=== PATIENT | female | born 1945 | race Caucasian/White ===

== ENCOUNTER 2016-10-19 11:17 | Inpatient (IN) | payer OTHER, BC ==
[2016-10-03 09:02] VITALS: BMI 32.0
--- NOTE | 2016-10-03 09:42 | PAT Medication Instructions ---
Service Date Oct 03, 2016. Current Home Medication List Acetaminophen (Tylenol), 1,000 MG PO BID PRN for illness Amoxicillin (Amoxil), 4 CAP PO UD PRN for RN Atenolol (Tenormin), 100 MG PO HS Atorvastatin (Atorvastatin Calcium), 10 MG PO QAM Calcium/Vitamin D (Os-Harish 500 Plus D), 1 TAB PO QAM Cholecalciferol (Vitamin D), 1,000 INTER.UNIT PO QAM Fish Oil (Waves-3), 1 CAP PO QAM Lisinopril (Zestril), 10 MG PO QAM Medication Instructions For Your Scheduled Surgery Amoxicillin (Amoxil), 4 CAP PO UD PRN for RN (just takes prior to dental procedures) - Hold the following medications 2 weeks prior to surgery: Fish Oil (Waves-3), 1 CAP PO QAM - Hold the following medications the morning of surgery: Lisinopril (Zestril), 10 MG PO QAM Calcium/Vitamin D (Os-Harish 500 Plus D), 1 TAB PO QAM Cholecalciferol (Vitamin D), 1,000 INTER.UNIT PO QAM - Take the following medications the morning of surgery with a sip of water: Atorvastatin (Atorvastatin Calcium), 10 MG PO QAM Acetaminophen (Tylenol), 1,000 MG PO BID PRN for illness (if needed) - Take the following medications as scheduled the night before surgery: Atenolol (Tenormin), 100 MG PO HS Acetaminophen (Tylenol), 1,000 MG PO BID PRN for illness If you have any questions please call us at [phone] or [phone] ( [facility]) or [phone]
--- NOTE | 2016-10-03 10:21 | DIAGNOSTIC IMAGING REPORT ---
TWO VIEW CHEST CLINICAL HISTORY: Preoperative examination. FINDINGS: PA and lateral chest radiographs are compared to study dated 10/25/2014. The PA view is degraded by patient rotation. The heart is enlarged and there is atherosclerotic calcification of the thoracic aorta. The pulmonary vasculature is noncongested. Chronic interstitial thickening is similar to previous. Scarring is suspected at the right lung base. No airspace consolidation or pleural effusion is identified. There is no pneumothorax. The skeletal structures are osteopenic. Mild degenerative changes noted in the thoracic spine. Surgical clips project over the right breast. IMPRESSION: Cardiac enlargement with no active disease in the chest. Electronically signed by: Josiah Candelaria M.D. 10/03/2016 10:18 AM Dictated Date/Time: 10/03/2016 10:17 AM
[2016-10-03 10:29] LABS: BASO % 0.4 %; BASO ABS # 0.02 K/uL (0-0.2); COMPLETE YES; EOS % 1.3 %; HEMATOCRIT 40.4 % (37-47); IG% 0.7 %; LYMPH % 19.5 %; MEAN CORPUSCULAR HEMOGLOBIN 26.9 pg (25-34); MEAN CORPUSCULAR HGB CONC 33.7 g/dl (32-36); MEAN PLATELET VOLUME 11.3 fL (7.4-10.4); MONO % 17.1 %; PLATELET COUNT 226 K/uL (130-400); RED BLOOD COUNT 5.05 M/uL (4.2-5.4); WHITE BLOOD COUNT 4.61 K/uL (4.8-10.8)
[2016-10-03 10:38] LABS: PARTIAL THROMBOPLASTIN RATIO 1.1
[2016-10-03 11:01] LABS: BUN/CREATININE RATIO 25.6 (10-20); CALCIUM 9.5 mg/dl (8.5-10.1); CREATININE 0.71 mg/dl (0.60-1.20)
--- NOTE | 2016-10-13 10:44 | HISTORY & PHYSICAL EXAMINATION ---
DATE OF ADMISSION: 10/19/2016 CHIEF COMPLAINT: Bilateral knee pain, right side greater than left. HISTORY OF PRESENT ILLNESS: The patient is a 71-year-old female from [place] who presents for surgical treatment of her right knee. She has a long history of bilateral knee pain and discomfort, right side quite a bit worse than the left. She has been through extensive conservative treatment by her medical doctor, Dr. Perri Black. She has had various medicines as well as injections. The injections have become less successful over time. It has really started to limit her ability to walk and ambulate and perform her normal daily activities. Only really has pain with weightbearing. She would like to proceed with surgical treatment. Of note, the patient does have a history of cerebral aneurysm treated surgically 10 years ago. No further problems with this and no residual sequelae. PAST MEDICAL HISTORY: 1. Hypertension. 2. Elevated cholesterol. 3. History of cerebral aneurysm status post repair. 4. Breast cancer status post surgery in remission. 5. Obesity, BMI of 32.3. PAST SURGICAL HISTORY: 1. Cerebral aneurysm repair. 2. Breast cancer resection. ALLERGIES: None. CURRENT MEDICINES: 1. Lisinopril 10 mg b.i.d. 2. Atenolol 100 mg at bedtime. 3. Amlodipine 5 mg a day. 4. Vitamin D 1000 international units a day. 5. Odell 3 1000 mg per day. 6. Tylenol. 7. Calcium. 8. Amoxicillin before dental work. 9. Lipitor 10 mg a day. SOCIAL HISTORY: A 71-year-old female patient from [place]. She is . Her is retired and can help in her recovery, 1-2 drinks per day. FAMILY HISTORY: Significant for heart disease. REVIEW OF SYSTEMS: Negative for diabetes, neurologic problems, vascular problems or bleeding disorders. Denies any chest pain, no shortness of breath. No history of DVT or PE. She does have this aneurysm repaired. No further problems with this. She has no bleeding issues and no neurological sequelae. PHYSICAL EXAMINATION: GENERAL: A pleasant elderly 71-year-old female. HEAD, EYES, EARS, NOSE, AND THROAT EXAMINATION: Benign. NECK: Supple. No lymphadenopathy. LUNGS: Clear to auscultation. HEART: Regular rate and rhythm. ABDOMEN: Soft, nontender, nondistended. EXTREMITY EXAMINATION: Grossly neurovascularly intact except as follows: Examination of both legs reveals the patient walks with a slightly antalgic gait. Examination of the right knee reveals small knee effusion. She is tender over the medial joint line. Range of motion is 5-120. No instability. No pain with hip motion. X-RAYS: X-rays of both knees revealed advanced bilateral knee DJD, right side a bit worse than left. She has got complete loss of her medial joint space. Little bit worse on the right than the left. She has got osteophytes primarily medial compartment bilaterally. She has got some chondrocalcinosis laterally. ASSESSMENT: A 71-year-old white female with advanced bilateral knee pain and degenerative joint disease. She has failed conservative treatment. Her right knee is worse than the left and she would like to have her right knee replaced. PLAN: We are going to take her to the operating room and do a right total knee replacement. The risks and benefits of this procedure were explained to the patient including but not limited to DVT, PE, , infection, neurological injury, vascular injury, bleeding problem, pain, limited range of motion, stiffness, failure to relieve her symptoms, incomplete relief of symptoms, need for further surgery in the future, fracture, leg length inequality, nerve palsy, etc. The patient understands and desires to proceed. Informed consent was obtained. We did talk to her about holding her lisinopril the morning of surgery. She will make sure she takes her atenolol dose the night before as standard for her. She is going to use the [employer] home health program. Her can assist in her care. I will see her back 2 weeks postop.
[~2016-10-19] VITALS: Ht 162.6 cm; Wt 85.3 kg
[2016-10-19] MEDS: TRANEXAMIC ACID INJ 1,000 MG in SODIUM CHLORIDE 0.9% 100ML 100 ML IV SCH ×3 (06:30)
[~2016-10-19 11:17] MED LIST: ACET-1256 PO; ACETAMINOPHEN 500 MG TAB PO SCH; AMOX500C3 PO; ATEN100T PO; BUPIVACAINE 0.5 % 5 MG/1 ML PF 10ML VIAL ONE; BUPIVACAINE LIPOSOME 266 MG, BUPIVACAINE/EPINEPHRINE INJ 50 ML, SODIUM CHLORIDE 0.9% PF... INFIL SCH; BUPIVACAINE/EPINEPHRINE 0.25% 1:200,000 30 ML VIAL ONE; CALC500C70 PO; CEFAZOLIN 2000 MG/60 ML D5W 60 ML IV SCH; CHOL100010 PO; CeleBREX 200 MG CAP PO SCH; DEXAMETHASONE 4 MG TAB PO SCH; DEXAMETHASONE SOD INJ 4 MG/ML VIAL ONE; FAMOTIDINE 20 MG TAB PO SCH; GABAPENTIN 300 MG CAP PO SCH; LACTATED RINGER'S 1000ML 1,000 ML IV SCH; LACTATED RINGER'S 1000ML 500 ML IV ONE; LACTATED RINGER'S 1000ML IV SCH; LISI-461 PO; LPT10 PO; METOCLOPRAMIDE HCL 10 MG TAB PO SCH; OMEG10007 PO; SCOPOLAMINE 1.5 MG TDSY TD SCH
[2016-10-19 11:44] VITALS: BP 154/85; PULSE 72; TEMP 36.8; O2SAT 96; BMI 32.0
[2016-10-19] MEDS ORDERED: SODIUM CHLORIDE 0.9% 1000ML 1,000 ML IV PRN (12:41)
[2016-10-19] MEDS ORDERED: NALOXONE HCL INJ 0.08 MG in SYRINGE 1.8 ML IV PRN (12:41)
[2016-10-19] MEDS ORDERED: NALOXONE HCL INJ 1 MG in SODIUM CHLORIDE 0.9% 1000ML 1,000 ML IV PRN (12:41)
[2016-10-19] MEDS ORDERED: LACTATED RINGER'S 1000ML 500 ML IV PRN (12:41)
[2016-10-19] MEDS ORDERED: MIDAZOLAM HCL 1 MG/ML 2ML VIAL ONE (12:43)
[2016-10-19] MEDS ORDERED: FENTANYL CITRATE INJ 50 MCG/1 ML 2 ML VIAL ONE (12:43)
[2016-10-19] MEDS ORDERED: PROMETHAZINE HCL INJ 25 MG in SODIUM CHLORIDE 0.9% 50ML 50 ML IV PRN (12:45)
[2016-10-19] MEDS ORDERED: FENTANYL CITRATE INJ 50 MCG/1 ML 2 ML VIAL IV PRN (12:45)
[2016-10-19] MEDS ORDERED: MEPERIDINE HCL 25 MG/ML CARP IV PRN (12:45)
[2016-10-19] MEDS ORDERED: MoRPHine SULFATE 2 MG/ML CARP IV PRN ×2 (12:45→17:15)
[2016-10-19] MEDS ORDERED: ONDANSETRON INJ 2 MG/ML 2 ML VIAL IV PRN ×2 (12:45)
[2016-10-19] MEDS ORDERED: KETOROLAC TROMETHAMINE 30 MG/ML VIAL IV. PRN (12:45)
[2016-10-19] MEDS ORDERED: ATROPINE SULFATE 0.1 MG/ML 5ML SYR IV PRN (12:45)
[2016-10-19] MEDS ORDERED: NO NARCOTICS OR SEDATIVES SCH (12:45)
[2016-10-19] MEDS ORDERED: MoRPHine SULFATE PF 1 MG/ML 10 ML AMP/VIAL EPI PRN (12:45)
[2016-10-19] MEDS ORDERED: DiphenhydrAMINE HCL 50 MG/ML VIAL IV PRN ×2 (12:45)
[2016-10-19] MEDS ORDERED: LORAZEPAM 1 MG TAB PO PRN (12:45)
[2016-10-19] MEDS ORDERED: EpHEDrine SULFATE INJ 50 MG/ML AMP IV PRN ×2 (12:45)
[2016-10-19] MEDS ORDERED: METOCLOPRAMIDE HCL INJ 20 MG in SODIUM CHLORIDE 0.9% 50ML 50 ML IV PRN (12:45)
[2016-10-19] MEDS ORDERED: NALBUPHINE HCL INJ 10 MG/ML AMP IV PRN (12:45)
[2016-10-19] MEDS ORDERED: LORAZEPAM INJ 0.5 MG in SYRINGE 0.75 ML IV PRN (12:45)
[2016-10-19] MEDS ORDERED: NALOXONE HCL 0.4 MG/1 ML VIAL/CARP IV PRN (12:45)
--- NOTE | 2016-10-19 12:53 | History & Physical Bridge Note ---
H&P Re-Evaluation Bridge Note: I have examined the patient, reviewed the History & Physical and in the interval since the performance of the History & Physical I have noted the following changes of clinical significance: No changes noted
[2016-10-19] MEDS ORDERED: PROPOFOL IV EMULSION 10 MG/ML 20 ML VIAL IV ONE (13:52)
[2016-10-19] MEDS ORDERED: LIDOCAINE HCL 2% 2 ML VIAL (20MG/ML) ONE (13:52)
[2016-10-19] MEDS ORDERED: PHENYLEPHRINE 100MCG/ML 5ML SYR ONE (13:57)
[2016-10-19] MEDS ORDERED: MIX: SENSORCAINE W/EPI+NSS+EXPAREL INJ ONE (14:23)
[2016-10-19] MEDS ORDERED: BACITRACIN 50000 UNIT VIAL IR ONE (14:34)
--- NOTE | 2016-10-19 14:47 | [facility] Post Operative Brief Note ---
Immediate Operative Summary Operative Date Oct 19, 2016. Pre-Operative Diagnosis Right knee degenerative joint disease Post-Operative Diagnosis Right knee degenerative joint disease Procedure(s) Performed Right Total Knee Arthroplasty- Cemented Surgeon Dr. Sammy Billings Resistance Machine Welder Setter Surgeon(s) Lenard Alicia PA-C Estimated Blood Loss 50 ml Findings Right Knee DJD Specimens A. Right knee bone and tissue Drains None Anesthesia Spinal Complication(s) None Disposition Recovery Room / PACU
[2016-10-19] MEDS ORDERED: ALUMINUM/MAGNESIUM/SIMETH (MAALOX MAX) 30 ML UDC PO PRN (15:00)
[2016-10-19] MEDS ORDERED: SILVER SULFADIAZINE 1% CR 50 GM JAR EXT PRN (15:00)
[2016-10-19] MEDS ORDERED: BISACODYL 10 MG SUPP PR PRN (15:00)
[2016-10-19] MEDS ORDERED: MAGNESIUM HYDROXIDE SUSP 30 ML UDC PO PRN (15:00)
--- NOTE | 2016-10-19 15:15 | DIAGNOSTIC IMAGING REPORT ---
TWO VIEWS RIGHT KNEE CLINICAL HISTORY: Postoperative examination. FINDINGS: AP and crosstable lateral portable views of the right knee are obtained. A right knee arthroplasty is in near anatomic alignment. There has been undersurface remodeling of the patella. No acute fracture is seen. There are expected postoperative changes around the knee including skin clips, soft tissue edema, and subcutaneous gas. IMPRESSION: Expected postoperative changes status post right knee arthroplasty. No acute fracture is seen. Electronically signed by: Josiah Candelaria M.D. 10/19/2016 3:14 PM Dictated Date/Time: 10/19/2016 3:13 PM
--- NOTE | 2016-10-19 15:36 | Anesthesiology Progress Note ---
Anesthesia Post Op Note Date & Time Oct 19, 2016 at 15:36 Vital Signs Pain Intensity: 0 Vital Signs Past 12 Hours Date Time Temp Pulse Resp B/P Pulse Ox O2 Delivery O2 Flow Rate FiO2 10/19/16 15:28 37 139/84 10/19/16 15:25 77 14 95 10/19/16 15:25 76 14 10/19/16 15:23 136/56 10/19/16 15:20 80 17 10/19/16 15:20 80 17 92 10/19/16 15:18 133/58 10/19/16 15:15 84 22 94 10/19/16 15:15 78 22 10/19/16 15:13 129/48 10/19/16 15:10 73 22 99 10/19/16 15:10 73 22 10/19/16 15:08 129/55 10/19/16 15:05 77 19 98 10/19/16 15:05 67 19 10/19/16 15:03 126/54 10/19/16 15:00 75 16 10/19/16 15:00 74 16 99 10/19/16 14:58 131/53 10/19/16 14:55 75 21 10/19/16 14:55 81 21 99 10/19/16 14:53 126/45 10/19/16 14:51 131/58 10/19/16 14:50 36.8 77 16 131/58 97 Mask 10 10/19/16 14:50 82 10/19/16 14:50 82 95 10/19/16 11:44 36.8 72 20 154/85 96 Room Air Notes Mental Status: alert / awake / arousable, participated in evaluation Pt Amnestic to Procedure: Yes Nausea / Vomiting: adequately controlled Pain: adequately controlled Airway Patency, RR, SpO2: stable & adequate BP & HR: stable & adequate Hydration State: stable & adequate Anesthetic Complications: no major complications apparent
[2016-10-19] MEDS ORDERED: OXYCODONE HCL IR 5 MG TAB (IMMEDIATE RELEASE) PO PRN ×2 (15:45→17:15)
--- NOTE | 2016-10-19 15:54 | OPERATIVE REPORT ---
DATE OF OPERATION: 10/19/2016 PREOPERATIVE DIAGNOSIS: Right knee degenerative joint disease. POSTOPERATIVE DIAGNOSIS: Same. PROCEDURE PERFORMED: Right cemented posterior stabilized total knee arthroplasty. SURGEON: Sammy Billings M.D. SHAKE PACKER: Duc Alicia PA-C. COMPLICATIONS: None. ESTIMATED BLOOD LOSS: 50 mL. FLUID REPLACEMENT: 1600 mL crystalloid fluid replacement. ANESTHESIA: Spinal with adductor canal block. DRAINS: None. SPECIMENS: Right knee sent for pathology. OPERATIVE INDICATIONS: The patient is a 71-year-old female who has had a long history of bilateral knee pain and discomfort, right side slightly worse than the left. She has been through extensive conservative treatment over several years by her primary care doctor. This has become less successful over time. She has been more debilitated by her right knee pain. X-rays revealed advanced arthritis. The patient elected to proceed with operative treatment. OPERATIVE FINDINGS: Operative findings revealed advanced right knee DJD. She had grade 4 [id number] disease at the medial femoral condyle and medial tibial plateau with extensive eburnation of the medial femoral condyle. The rest of her knee joints showed fairly mild degenerative change. She did have osteophytes off the medial femoral condyle and medial tibial plateau. Moderate sized joint effusion. OPERATIVE IMPLANTS: Operative implants consisted of: 1. Biomet Vanguard size 67.5 right posterior stabilized femoral component. 2. Biomet size 67 tibial tray. 3. A 10 mm posterior stabilized polyethylene insert. 4. A 28 x 8 all poly patella. OPERATIVE PROCEDURE: The patient taken to the operating room, identified and placed on the operating table in supine position. All contact areas were appropriately padded. IV antibiotics were provided by anesthesia team. A spinal anesthetic and adductor canal block had been provided in the holding area. Reynolds catheter was placed in sterile fashion. A right thigh tourniquet was then placed and the right lower extremity was then prepped and draped in usual sterile fashion. The right leg was elevated and exsanguinated with Esmarch and tourniquet was placed at 300 mmHg. An anterior approach to the right knee was then performed through a longitudinal incision centered over the patella. Sharp dissection was carried down through the subcutaneous tissues down to the level of the extensor mechanism. A medial parapatellar arthrotomy incision was made. Some subperiosteal dissection was carried out medially. The fat pad was resected from beneath the patellar tendon. The lateral patellofemoral ligament was released. The patella was everted and knee was flexed. The osteophytes were taken off the distal femur. The ACL and PCL were then released from the distal femur and the tibia subluxated anteriorly. The external tibial alignment jig was then placed in the anterior face of the tibia and adjusted 14 mm medially. Proximal tibial cut was made to remove about 2 mm of bone from the most deficient aspect of the medial tibial plateau. The tibia was then sized to a size 67. Some osteophytes were taken off medial and posteromedially. Attention was then drawn to the femur. The distal femur was entered with a sharp drill bit. Intramedullary canal was suctioned. A right 5 degree valgus cutting guide was placed. Distal femoral cutting block was pinned in place. Distal femoral cut was made to take an additional 3 mm of bone off the distal femur. The femur was then sized to a size 67.5. She had fairly narrow dimensions compared to the AP dimensions. We downsize this almost an entire size. The AP cutting block was pinned parallel to the epicondylar axis, which was 3 degrees of external rotation. The anterior cut, anterior chamfer, posterior cut, posterior chamfer cuts were made. Box cutting guide was placed and adjusted slightly lateral and the box cut was made. The knee was flexed. The remnants of the medial and lateral menisci were excised. The osteophytes were taken off the posterior aspect of the femur. Trial femoral component was placed. Tibial tray was pinned in maximum external rotation and drill and stem punch were used to create defect in proximal tibia for the tibial tray. The knee was then trialed and the 10 mm insert fit most appropriately. Attention was then drawn to the patella. The patella was cleaned of all soft tissues. Patella thickness measured 20 mm and was cut down to 12. It was sized to a size 28 patella. Lug holes were drilled for the 28 patella. Lateral osteophyte was removed. Patella button was placed. Knee was taken through range of motion and patella tracked nicely with no thumbs test. Attention was then drawn toward placement of the permanent components. All trial components were removed. A bone plug was placed in the distal femur to limit blood loss. A double batch of Palacos G cement was mixed. A right size 67.5 posterior stabilized femoral component, size 67 tibial tray, 10 mm posterior stabilized polyethylene insert and 28 x 8 all poly patella then cemented in place. Knee was brought out into full extension until cement hardened. A final cement check was then performed. The pericapsular tissues were injected with 100 mL of a combination of 20 mL of Exparel, 30 mL normal saline, 50 mL of 0.25% Marcaine with epinephrine. The patient did receive 1 gram of tranexamic acid. The tourniquet was then let down for a final tourniquet time of 48 minutes. Hemostasis was assured with use of electrocautery. The wound was once again irrigated. The extensor mechanism was then closed with a combination of #1 PDS suture and #1 Vicryl suture in a [id number]-bl-nymmy fashion. Extensor mechanism was checked and found to be intact. The subcutaneous tissues were then closed with 2-0 Dexon suture in a buried interrupted fashion. Skin was closed skin sara. Leg was then cleaned and dried and a sterile dressing with Xeroform, 4 x 4, sterile cast padding and Travis bandage were applied. The patient was then transferred to the recovery room in stable condition. The patient tolerated the procedure well with no complications. All needle and sponge counts were correct at the end of the operation. I attest to the content of the Intraoperative Record and any orders documented therein. Any exceptio ns are noted below.
[2016-10-19] MEDS: CHECK SCOPOLAMINE PATCH PLACEMENT SCH ×2 (16:00→23:18)
[2016-10-19 16:27] VITALS: BP 118/75; PULSE 74; TEMP 36.5; O2SAT 97; Ht 162.6 cm; Wt 85.3 kg
[2016-10-19] MEDS: D5W AND 1/2NSS + 20MEQ KCL 1,000 ML IV SCH (17:26)
[2016-10-19] MEDS: FERROUS GLUCONATE 324 MG TAB PO SCH (17:27)
[2016-10-19] MEDS: ACETAMINOPHEN 500 MG TAB PO SCH (17:39)
[2016-10-19 17:55] VITALS: BP 164/83; PULSE 80; TEMP 36.9; O2SAT 95
[2016-10-19 19:01] VITALS: BP 135/77; PULSE 92; TEMP 36.8; O2SAT 96
[2016-10-19] MEDS: ASPIRIN 325 MG ECTAB PO SCH (20:50)
[2016-10-19] MEDS: DOCUSATE SODIUM 100 MG CAP PO SCH (20:50)
[2016-10-19] MEDS ORDERED: TAPENTADOL ER 50 MG TABCR PO SCH (21:00)
[2016-10-19] MEDS ORDERED: TRANEXAMIC ACID INJ 1,000 MG in SODIUM CHLORIDE 0.9% 100ML 100 ML IV SCH (21:00)
[2016-10-19] MEDS: CEFAZOLIN IV 2,000 MG in DEXTROSE 5% 50ML 50 ML IV SCH (21:18)
[2016-10-19 23:18] VITALS: BP 148/85; PULSE 82; TEMP 36.7; O2SAT 93
[2016-10-20] VITALS (7 sets, daily range): BP systolic 134–162; BP diastolic 68–81; PULSE 60–89; TEMP 36.3–36.7; O2SAT 93–96
[2016-10-20] MEDS: D5W AND 1/2NSS + 20MEQ KCL 1,000 ML IV SCH ×2 (02:55→13:30)
[2016-10-20] MEDS ORDERED: ZOLPIDEM TARTRATE 5 MG TAB PO PRN (06:00)
[2016-10-20] MEDS: KETOROLAC TROMETHAMINE 15 MG/ML VIAL IV. SCH ×4 (06:00→23:07)
[2016-10-20] MEDS: CEFAZOLIN IV 2,000 MG in DEXTROSE 5% 50ML 50 ML IV SCH (06:00)
[2016-10-20] MEDS ORDERED: OXYCODONE HCL IR 5 MG TAB (IMMEDIATE RELEASE) PO PRN (06:00)
[2016-10-20] MEDS: ACETAMINOPHEN 500 MG TAB PO SCH ×3 (06:00→21:18)
[2016-10-20] MEDS ORDERED: MoRPHine SULFATE 2 MG/ML CARP IV PRN (06:00)
[2016-10-20] MEDS ORDERED: DC INTRASPINAL MORPHINE ONE (06:00)
[2016-10-20] MEDS ORDERED: DiphenhydrAMINE HCL 50 MG/ML VIAL IV PRN (06:00)
[2016-10-20] MEDS ORDERED: ONDANSETRON INJ 2 MG/ML 2 ML VIAL IV PRN (06:00)
[2016-10-20] MEDS ORDERED: METOCLOPRAMIDE HCL INJ 5 MG/ML 2 ML VIAL IV PRN (06:00)
[2016-10-20 06:27] LABS: HEMATOCRIT 36.3 % (37-47); MEAN CELL VOLUME 78.1 fL (80-100); MEAN CORPUSCULAR HEMOGLOBIN 26.7 pg (25-34); MEAN CORPUSCULAR HGB CONC 34.2 g/dl (32-36); MEAN PLATELET VOLUME 10.5 fL (7.4-10.4); PLATELET COUNT 302 K/uL (130-400); RED BLOOD COUNT 4.65 M/uL (4.2-5.4); WHITE BLOOD COUNT 16.77 K/uL (4.8-10.8)
[2016-10-20 07:01] LABS: BUN/CREATININE RATIO 18.5 (10-20); CALCIUM 8.7 mg/dl (8.5-10.1); CREATININE 0.81 mg/dl (0.60-1.20); POTASSIUM 3.9 mmol/L (3.5-5.1)
--- NOTE | 2016-10-20 07:49 | PROGRESS NOTE ---
DATE: 10/20/2016 SUBJECTIVE: A 71-year-old white female postop day 1 from right knee replacement. She is doing pretty well. Knee is pretty sore. She is slightly confused. Denies any chest pain or shortness of breath. OBJECTIVE: VITAL SIGNS: Temperature 36.7. Vital signs stable. GENERAL: Reveals a pleasant, elderly female. She is lying in bed, looks reasonably comfortable. LUNGS: Clear to auscultation. HEART: Regular rate and rhythm. ABDOMEN: Soft, nontender, nondistended. EXTREMITIES: Grossly neurovascularly intact except as follows. Examination of the right lower extremity reveals the dressing to be clean, dry and intact. Leg is well aligned. She can dorsiflex and plantarflex her foot appropriately. She is neurologically intact. LABS: Hemoglobin is 12.4, hematocrit 36.3. White cell count 16.77. Electrolytes are stable. ASSESSMENT: A 71-year-old white female postop day 1 from right total knee replacement, doing pretty well. Pretty painful overnight which is not unexpected. She is just slightly confused, likely related to anesthesia and pain medicine. She is neurologically intact. White cell count is elevated, likely related to stress. PLAN: 1. DVT prophylaxis including thigh-high TEDs, SCDs, and aspirin twice a day. 2. PT/OT. Weightbearing as tolerated. Right total knee protocol. 3. Pain control. He is doing pretty well with current pain regimen. We are going to have to be careful not to give her too much narcotics to avoid confusion while at the same time managing her pain. 4. Disposition: She is hoping to be discharged home and do outpatient therapy. Does not think her will tolerate home health.
[2016-10-20] MEDS ORDERED: TAPENTADOL ER 50 MG TABCR PO SCH (09:00)
[2016-10-20] MEDS ORDERED: NURSING VERBAL MED ORDER ONE (09:45)
[2016-10-20] MEDS: DOCUSATE SODIUM 100 MG CAP PO SCH ×2 (10:11→19:34)
[2016-10-20] MEDS: ASPIRIN 325 MG ECTAB PO SCH ×2 (10:12→19:35)
[2016-10-20] MEDS: FERROUS GLUCONATE 324 MG TAB PO SCH ×3 (10:13→21:18)
[2016-10-20] MEDS: MULTIVITAMIN TAB PO SCH (10:14)
[2016-10-20] MEDS: CHOLECALCIFEROL 1000 INTER.UNIT TAB PO SCH (10:14)
[2016-10-20] MEDS: PANTOprazole SOD 40 MG TAB PO SCH (10:15)
[2016-10-20] MEDS: CALCIUM 600MG + VIT D 400 IU TAB PO SCH (10:15)
[2016-10-20] MEDS: ATORVASTATIN 10 MG TAB PO SCH (10:16)
[2016-10-20] MEDS: LISINOPRIL 10 MG TAB PO SCH (10:18)
[2016-10-20] MEDS: CHECK SCOPOLAMINE PATCH PLACEMENT SCH ×3 (10:25→23:05)
[2016-10-21] MEDS: ACETAMINOPHEN 500 MG TAB PO SCH ×3 (05:30→21:45)
[2016-10-21] MEDS: KETOROLAC TROMETHAMINE 15 MG/ML VIAL IV. SCH ×4 (05:31→23:57)
[2016-10-21 07:01] VITALS: BP 137/78; PULSE 60; TEMP 36.7; O2SAT 93
[2016-10-21] MEDS ORDERED: ACET-1138 PO (07:50)
[2016-10-21] MEDS ORDERED: ASPEC325 PO (07:50)
[2016-10-21] MEDS ORDERED: TRAM-10 PO (07:51)
--- NOTE | 2016-10-21 08:18 | PROGRESS NOTE ---
DATE: 10/21/2016 SUBJECTIVE: A 71-year-old white female postop day 2 from a right knee replacement. She was pretty confused yesterday, but it is resolved now that we stopped her pain medicines. Denies any chest pain or shortness of breath. She is awake, alert and oriented. OBJECTIVE: VITAL SIGNS: Temperature 36.7. Vital signs stable. PHYSICAL EXAMINATION: GENERAL: Reveals a pleasant elderly female. She is sitting up in bed and looks completely comfortable. She has a little bit of a tremor. She is awake, alert and oriented and appropriate. LUNGS: Clear to auscultation. HEART: Regular rate and rhythm. ABDOMEN: Soft, nontender, nondistended. EXTREMITIES: Grossly neurovascularly intact except as follows. Examination of the right lower extremity reveals the leg to be well aligned. She can dorsiflex and plantarflex her foot appropriately. She is neurologically intact. ASSESSMENT: A 71-year-old white female postoperative day 2 from a right knee replacement, doing pretty well. Pretty confuse yesterday, likely . This is improved. Pain is controlled. PLAN: 1. DVT prophylaxis including thigh-high TEDs, SCDs, and aspirin twice a day. 2. PT/OT. Weightbearing as tolerated. Right total knee protocol. 3. Pain control, doing pretty well with current pain regimen. She has had some confusion, we stopped most of her pain medicines. We will continue Tylenol, as well as Toradol, and will add some tramadol only if needed. 4. Disposition: She is hoping to be discharged to home and do outpatient therapy. She does not want home health.
[2016-10-21] MEDS: CALCIUM 600MG + VIT D 400 IU TAB PO SCH (09:14)
[2016-10-21] MEDS: ATORVASTATIN 10 MG TAB PO SCH (09:14)
[2016-10-21] MEDS: MULTIVITAMIN TAB PO SCH (09:14)
[2016-10-21] MEDS: FERROUS GLUCONATE 324 MG TAB PO SCH ×3 (09:14→18:27)
[2016-10-21] MEDS: LISINOPRIL 10 MG TAB PO SCH (09:15)
[2016-10-21] MEDS: PANTOprazole SOD 40 MG TAB PO SCH (09:15)
[2016-10-21] MEDS: CHOLECALCIFEROL 1000 INTER.UNIT TAB PO SCH (09:16)
--- NOTE | 2016-10-21 13:09 | Discharge Instructions ---
Discharge Instructions Admission Reason for Admission: Right Knee Osteoarthritis, Knee Pain Discharge Discharge Diagnosis / Problem: Right Knee Replacement Discharge Goals Goal(s): Decrease discomfort, Improve function, Increase independence, Improve disease control, Therapeutic intervention Activity Recommendations Activity Limitations: per Instructions/Follow-up section Weightbearing Status: Right weightbearing . Instructions / Follow-Up Instructions / Follow-Up ACTIVITY RECOMMENDATIONS: Physical Therapy: * You will go to physical therapy three times each week for four to six weeks after your surgery in order to regain your knee range of motion and to retrain your knee to work properly. * It is just as important to make sure you are getting your knee perfectly straight as it is to regain your knee bend. * Taking a pain pill an hour before therapy can help you have a more productive and comfortable therapy session. Home Exercise: * You were shown a series of exercises (heel props, heel slides, etc.) in the hospital. Do these exercises three to four times each day including the exercises you were shown in physical therapy. Walking: * Get up and walk several times each day. For the first four weeks, try not to stand or walk for more than one hour at a time. If you do stand or walk for more than one hour, you will not hurt anything, but your knee and leg will likely swell. * As you feel comfortable, you may change from the walker or crutches to a cane and then to independent walking. MEDICATIONS: New Medicine: * You will likely be taking one or more of these medications: 1. Tramadol - A quick and shorter-acting pain medication. Take one to two tablets every four to six hours to lessen your pain. 2. Aspirin - Thins your blood to lessen the chance of forming a blood clot. * The most common side effects of pain medicine and iron are nausea and constipation. If nausea or constipation is too much of a problem or if you have any questions about your new medicines or doses, call [facility] at . We will try to help you manage these issues. VERY IMPORTANT TO READ AND REVIEW" Pain: * The immediate post-operative period after knee replacement surgery is often quite painful. * You are given a prescription for pain medicine. You should take it, as directed, when you need it, especially before physical therapy and before going to bed. Pain that interferes with sleep is very common and can last several months. * You will likely need pain medicine for the first four to six weeks. It will not stop all of the pain. The pain will lessen and as you feel better, you may change to milder pain medicine such as Tylenol. * The most common side effects of pain medicine are nausea and constipation, so don't take more than you need. SPECIAL CARE INSTRUCTIONS: TEDs/Elastic Stockings: * The white elastic stockings help limit swelling and prevent blood clots from forming in your legs. The more you wear them, the more they work. * Wear them for six weeks after knee replacement surgery and four weeks after partial knee replacement. Prevention of Infection: * Take antibiotics one hour before any dental cleaning, dental work, urological procedure, gastrointestinal procedure or any invasive surgery in order to prevent your new joint from getting infected. * You may get the antibiotics from the doctor performing the procedure or you may call our office at before and we will call in a prescription to the pharmacy of your choice. Things to Watch For: * Drainage from the incision site that occurs more than one week after your surgery. * Severely increased knee/leg pain or swelling. * Increased redness at the incision site. * Fever above 102 degrees Fahrenheit. * Unusual chest pain or shortness of breath. * Unusual pain or burning with urination. Call [facility] at with any of the above problems or if you have any questions about your medicines or recovery. FOLLOW UP VISIT: Make an appointment to see your doctor for approximately two weeks after surgery for a progress check and staple removal by calling the office at . Current Hospital Diet Patient's current hospital diet: Regular Diet Discharge Diet Recommended Diet: Regular Diet Procedures Procedures Performed: Right Total Knee Arthroplasty- Cemented Pending Studies Studies pending at discharge: no Medical Emergencies . Who to Call and When: Medical Emergencies: If at any time you feel your situation is an emergency, please call [phone] immediately. . Non-Emergent Contact Non-Emergency issues call your: Surgeon . "Provider Documentation" section prepared by Sammy Billings. VTE Core Measure Inpt VTE Proph given/why not?: Other Anticoagulation, T.E.D. Stockings, SCD's
[2016-10-21 15:15] VITALS: BP 125/74; PULSE 74; TEMP 37; O2SAT 96
[2016-10-21] MEDS: DOCUSATE SODIUM 100 MG CAP PO SCH ×2 (16:59→21:40)
[2016-10-21] MEDS: ASPIRIN 325 MG ECTAB PO SCH ×2 (16:59→21:44)
[2016-10-21 21:42] VITALS: BP 105/68; PULSE 76
[2016-10-21 23:08] VITALS: BP 119/77; PULSE 63; TEMP 36.5; O2SAT 97
[2016-10-22] MEDS: ACETAMINOPHEN 500 MG TAB PO SCH (04:04)
[2016-10-22 06:16] VITALS: BP 132/70; PULSE 99; TEMP 36.6; O2SAT 95
[2016-10-22] MEDS: ASPIRIN 325 MG ECTAB PO SCH (07:31)
[2016-10-22] MEDS: MULTIVITAMIN TAB PO SCH (07:32)
[2016-10-22] MEDS: ATORVASTATIN 10 MG TAB PO SCH (07:32)
[2016-10-22] MEDS: CALCIUM 600MG + VIT D 400 IU TAB PO SCH (07:32)
[2016-10-22] MEDS: CHOLECALCIFEROL 1000 INTER.UNIT TAB PO SCH (07:32)
[2016-10-22] MEDS: FERROUS GLUCONATE 324 MG TAB PO SCH ×2 (07:32→12:30)
[2016-10-22] MEDS: PANTOprazole SOD 40 MG TAB PO SCH (07:32)
[2016-10-22] MEDS: DOCUSATE SODIUM 100 MG CAP PO SCH (07:33)
[2016-10-22] MEDS: LISINOPRIL 10 MG TAB PO SCH (07:33)
--- NOTE | 2016-10-22 07:33 | PROGRESS NOTE ---
DATE: 10/22/2016 SUBJECTIVE: A 71-year-old white female postop day 3 from a right knee replacement. She is doing well. Pain has continued to get a little bit better each day. No more confusion. No chest pain or shortness of breath. Not feeling dizzy or lightheaded. OBJECTIVE: VITAL SIGNS: Temperature 36.6. Vital signs stable. PHYSICAL EXAMINATION: GENERAL: Reveals a healthy, pleasant middle-aged female. She is sitting up in bed and looks comfortable. LUNGS: Clear to auscultation. HEART: Regular rate and rhythm. ABDOMEN: Soft, nontender, nondistended. EXTREMITIES: Grossly neurovascularly intact except as follows: Examination of the right lower extremity reveals the leg to be well aligned. Dressing is clean, dry and intact. Some moderate swelling. She is neurologically intact. ASSESSMENT: A 71-year-old female postop day 3 from right knee replacement, doing pretty well. The confusion is resolved. Having a little bit more pain likely just due to limited pain meds. PLAN: 1. DVT prophylaxis including thigh-high TEDs, SCDs, and aspirin twice a day. 2. PT/OT. Weightbearing as tolerated. Right total knee protocol. 3. Pain control, doing pretty well with current pain regimen. We will start to give her a bit more pain medicines as she has been alert, awake and appropriate for the past 36 hours. 4. Disposition: Plan to discharge to home and she is going to do outpatient therapy.
--- NOTE | 2016-10-22 08:22 | Anesthesiology Progress Note ---
Anesthesia Post Op Note Date & Time Oct 22, 2016 at 08:21 Vital Signs Pain Intensity: 0.0 Vital Signs Past 12 Hours Date Time Temp Pulse Resp B/P Pulse Ox O2 Delivery O2 Flow Rate FiO2 10/22/16 07:30 Room Air 10/22/16 06:16 36.6 99 18 132/70 95 Room Air 10/21/16 23:08 36.5 63 18 119/77 97 Room Air 10/21/16 21:42 76 105/68 10/21/16 20:30 Room Air Notes Mental Status: alert / awake / arousable, participated in evaluation Pt Amnestic to Procedure: Yes Nausea / Vomiting: adequately controlled Pain: adequately controlled Airway Patency, RR, SpO2: stable & adequate BP & HR: stable & adequate Hydration State: stable & adequate Neuraxial Anesthesia: was administered, sensory block resolved Anesthetic Complications: no major complications apparent
[2016-10-22 12:39] VITALS: BP 132/70; PULSE 99; TEMP 36.6; O2SAT 95
--- NOTE | 2016-10-30 14:25 | DISCHARGE SUMMARY ---
ADMITTING PHYSICIAN AND SURGEON: Dr. Billings. ADMITTING DIAGNOSIS: Right knee degenerative joint disease. SURGERY PERFORMED: Right total knee arthroplasty. SECONDARY DIAGNOSES: Hypertension, elevated cholesterol, history of cerebral aneurysm, breast cancer, obesity. CONSULTS: None obtained. HISTORY AND PHYSICAL EXAMINATION: Well documented in the patient's chart. HOSPITAL COURSE: The patient was admitted on 10/19/2016 underwent total knee arthroplasty, tolerated the procedure well. There were no complications. She was transferred to the PACU postoperatively and later to the orthopedic floor for further care. She was given Ancef for antibiotic prophylaxis, JONAS stockings, SCDs and aspirin for DVT prophylaxis. Hemoglobin, hematocrit and vital signs were monitored during her hospital stay and remained stable. She did not require any blood transfusions. There were no complications. By postoperative day 3, she was tolerating a diabetic diet. Pain was controlled with oral pain medicine. She was participating in physical therapy. She had no signs or symptoms of deep vein thrombosis. On postop day 3, she was discharged home in good condition. She was given printed discharge instructions including prescriptions for extra strength Tylenol, aspirin 325 mg b.i.d. and Ultram. Continue her home medications, continue physical therapy, weightbearing as tolerated, JONAS stockings. Follow up in 10-12 days or sooner if there are problems or concerns.
[2017-04-03] MEDS ORDERED: ATOR-22 PO (15:56)
[2017-04-03] MEDS ORDERED: AMLO-110 PO (15:58)
== END 2016-10-22 13:30 | disposition home or self-care (01) | DRG 470 ==
LOC: ENRESERVTM → ENRESERVDT → C.ACU 11:17 → C.3E 12:00
PROVIDERS: ADMIT Orthopaedic Surgery Sports Medicine; ATTEND Orthopaedic Surgery Sports Medicine
PROC: 0SRC0J9 Replacement of Right Knee Joint with Synthetic Substitute, Cemented, Open Approach (ICD-10-PCS; principal; 2016-10-19 13:00)
DX: M17.0 Bilateral primary osteoarthritis of knee (principal); F05 Delirium due to known physiological condition; T40.2X5A Adverse effect of other opioids, initial encounter; T41.205A Adverse effect of unspecified general anesthetics, initial encounter; Y92.230 Patient room in hospital as the place of occurrence of the external cause; M25.461 Effusion, right knee; D72.829 Elevated white blood cell count, unspecified; I10 Essential (primary) hypertension; E78.00 Pure hypercholesterolemia, unspecified; E66.9 Obesity, unspecified; Z68.32 Body mass index [BMI] 32.0-32.9, adult; Z86.79 Personal history of other diseases of the circulatory system; Z87.891 Personal history of nicotine dependence; Z79.899 Other long term (current) drug therapy

== ENCOUNTER 2017-05-07 07:54 | Inpatient (IN) | payer OTHER, BC ==
[2017-04-01 16:51] LABS: BASO % 0.4 %; BASO ABS # 0.03 K/uL (0-0.2); COMPLETE YES; HEMATOCRIT 38.8 % (37-47); IG% 0.1 %; LYMPH % 16.8 %; LYMPH ABS # 1.29 K/uL (1.2-3.4); MEAN CORPUSCULAR HEMOGLOBIN 26.5 pg (25-34); MEAN CORPUSCULAR HGB CONC 33.5 g/dl (32-36); MEAN PLATELET VOLUME 10.7 fL (7.4-10.4); MONO % 7.7 %; PLATELET COUNT 248 K/uL (130-400); RED BLOOD COUNT 4.91 M/uL (4.2-5.4); WHITE BLOOD COUNT 7.69 K/uL (4.8-10.8)
[2017-04-01 17:02] LABS: PARTIAL THROMBOPLASTIN RATIO 1.1; PROTHROMBIN TIME (PATIENT) 10.7 SECONDS (9.0-12.0)
[2017-04-01 17:04] LABS: BLOOD UREA NITROGEN 15 mg/dl (7-18); BUN/CREATININE RATIO 24.7 (10-20); C-REACTIVE PROTEIN 0.33 mg/dl (0-0.29); CALCIUM 9.3 mg/dl (8.5-10.1); CARBON DIOXIDE 29 mmol/L (21-32); CHLORIDE 106 mmol/L (98-107); CREATININE 0.59 mg/dl (0.60-1.20); GLUCOSE 100 mg/dl (70-99); POTASSIUM 4.2 mmol/L (3.5-5.1); SODIUM 141 mmol/L (136-145)
[2017-04-03 16:00] VITALS: BMI 29.0
--- NOTE | 2017-05-03 08:54 | HISTORY & PHYSICAL EXAMINATION ---
DATE OF ADMISSION: 05/07/2017 CHIEF COMPLAINT: Left knee pain. HISTORY OF PRESENT ILLNESS: The patient is a 72-year-old female who is now about 6-1/2 months out from right knee replacement who presents for surgical treatment of her left knee. She has been through long history of treatment to both knees over the years by her primary care physician including anti-inflammatories as well as injections. This became less successful over time. She had her right knee replaced 6-1/2 months ago and has done well from this. She continues to be limited by left knee pain and discomfort. She would like to proceed with left knee replacement. Her walking tolerance is unlimited. She limps the more the day goes on. She has nighttime pain. PAST MEDICAL HISTORY: 1. Hypertension. 2. Elevated cholesterol. 3. History of cerebral aneurysm status post repair. 4. Breast cancer in remission. 5. Obesity with a BMI of 30. PAST SURGICAL HISTORY: Includes: 1. Cerebral aneurysm repair. 2. Breast cancer. 3. Right knee replacement done 10/19/2016. ALLERGIES: None. CURRENT MEDICINES: 1. Lisinopril 10 mg a day. 2. Atenolol 100 mg a day. 3. Amlodipine 5 mg. 4. Vitamin D 1000 international units a day. 5. Colon 3. 6. Tylenol. 7. Calcium 8. Amoxicillin. 9. Lipitor 10 mg a day. SOCIAL HISTORY: A 72-year-old female patient from [place]. She is . Her is retired and can assist in her care. One or 2 drinks per day. FAMILY HISTORY: History of significant heart disease. REVIEW OF SYSTEMS: Negative for diabetes, neurologic problems, vascular problems or bleeding disorders. No history of chest pain or shortness of breath. No history of DVT or PE. PHYSICAL EXAMINATION: GENERAL: Reveals a healthy pleasant, middle-aged female. She looks to be in pretty good health. HEAD, EYES, EARS, NOSE, AND THROAT EXAMINATION: Benign. NECK: Supple. No lymphadenopathy. LUNGS: Clear to auscultation. HEART: Has a regular rate and rhythm. ABDOMEN: Soft, nontender, nondistended. EXTREMITY EXAMINATION: Grossly neurovascularly intact as follows: Examination of the right knee reveals the patient ambulates independently. Her right knee incision is well healed. Her range of motion of the right knee is 0-125. No instability. Examination of the left knee reveals slight varus alignment. Moderate soft tissue envelope. Small knee effusion. She is tender over the medial joint line. Range of motion is 0-120. No instability. X-RAYS: X-rays of the left knee were reviewed. It shows advanced left knee medial compartment DJD. She has complete loss of her medial joint space. She has subchondral sclerosis. She has osteophytes off the medial femoral condyle and medial tibial plateau. ASSESSMENT: A 72-year-old female status post right knee replacement several months ago with advanced left knee degenerative joint disease. She would like to have her left knee replaced. PLAN: We will take her to the operating room and do a left total knee replacement. The risks and benefits of this procedure were explained to the patient including but not limited to DVT, PE, , infection, neurologic injury, vascular injury, bleeding problems, pain, limited range of motion, stiffness, persistent pain, incomplete relief of symptoms, need for further surgery in the future, etc. The patient understands and desires to proceed. Informed consent was obtained. We did talk about holding her lisinopril the morning of surgery making sure that she takes her atenolol. She is planning to be discharged home and do outpatient therapy at [facility] once discharged from the hospital.
[~2017-05-07] VITALS: Ht 162.6 cm; Wt 78.6 kg
[2017-05-07] VITALS (9 sets, daily range): BP systolic 119–158; BP diastolic 69–96; PULSE 46–67; TEMP 36–36.8; O2SAT 93–99; Ht 162.6 cm; Wt 78.6 kg
[~2017-05-07 07:54] MED LIST changes: +AMLO-110 PO; +ATOR-22 PO; -BUPIVACAINE 0.5 % 5 MG/1 ML PF 10ML VIAL ONE; -BUPIVACAINE/EPINEPHRINE 0.25% 1:200,000 30 ML VIAL ONE; -CeleBREX 200 MG CAP PO SCH; -DEXAMETHASONE 4 MG TAB PO SCH; -DEXAMETHASONE SOD INJ 4 MG/ML VIAL ONE; +FENTANYL CITRATE INJ 50 MCG/1 ML 2 ML VIAL ONE; -LACTATED RINGER'S 1000ML 500 ML IV ONE; -LACTATED RINGER'S 1000ML IV SCH; -LPT10 PO; +MIDAZOLAM HCL 1 MG/ML 2ML VIAL ONE; +TRANEXAMIC ACID INJ 1,000 MG in SODIUM CHLORIDE 0.9% 100ML 100 ML IV SCH
[2017-05-07] MEDS ORDERED: BUPIVACAINE 0.25% 30 ML VIAL ONE (08:02)
[2017-05-07] MEDS ORDERED: BUPIVACAINE 0.5 % 5 MG/1 ML PF 10ML VIAL ONE (08:02)
[2017-05-07] MEDS ORDERED: ONDANSETRON INJ 2 MG/ML 2 ML VIAL IV PRN ×2 (08:15→13:00)
[2017-05-07] MEDS ORDERED: ATROPINE SULFATE 0.1 MG/ML 5ML SYR IV PRN (08:15)
[2017-05-07] MEDS ORDERED: EpHEDrine SULFATE INJ 50 MG/ML AMP IV PRN (08:15)
[2017-05-07] MEDS ORDERED: BUPIVACAINE/EPINEPHRINE 0.5% MPF 1:200,000 10 ML VIAL ONE (11:06)
[2017-05-07] MEDS ORDERED: BUPIVACAINE LIPOSOME 1/3% 266 MG/20 ML VIAL INFIL ONE (11:07)
[2017-05-07] MEDS ORDERED: BACITRACIN 50000 UNIT VIAL ONE (11:07)
[2017-05-07] MEDS ORDERED: SODIUM CHLORIDE 0.9% PF 50 ML VIAL ONE (11:07)
[2017-05-07] MEDS ORDERED: PROPOFOL IV EMULSION 10 MG/ML 20 ML VIAL IV ONE (11:28)
[2017-05-07] MEDS ORDERED: PHENYLEPHRINE HCL INJ 10 MG/ML VIAL ONE (11:38)
--- NOTE | 2017-05-07 12:52 | [facility] Post Operative Brief Note ---
Immediate Operative Summary Operative Date May 07, 2017. Pre-Operative Diagnosis Advanced Left Knee Degenerative Joint Disease Post-Operative Diagnosis Advanced Left Knee Degenerative Joint Disease Procedure(s) Performed Left Total Knee Arthroplasty, Cemented Surgeon Dr. Billings Side Door Worker Surgeon(s) Lenard Alicia PA-C Estimated Blood Loss 50 mL Findings Left Knee DJD Fluids (cc crystalloids) 1500 cc Specimens A: Left Knee Bone and Tissue Drains None Anesthesia Spinal Complication(s) None Disposition Recovery Room / PACU
[2017-05-07] MEDS ORDERED: TRAMADOL HCL 50 MG TAB PO PRN (13:00)
[2017-05-07] MEDS ORDERED: METOCLOPRAMIDE HCL INJ 5 MG/ML 2 ML VIAL IV PRN (13:00)
[2017-05-07] MEDS ORDERED: ZOLPIDEM TARTRATE 5 MG TAB PO PRN (13:00)
[2017-05-07] MEDS ORDERED: SILVER SULFADIAZINE 1% CR 50 GM JAR EXT PRN (13:00)
[2017-05-07] MEDS ORDERED: BISACODYL 10 MG SUPP PR PRN (13:00)
[2017-05-07] MEDS ORDERED: HYDROmorphone INJ 0.5 MG/0.5 ML SYR IV PRN (13:00)
[2017-05-07] MEDS ORDERED: MAGNESIUM HYDROXIDE SUSP 30 ML UDC PO PRN (13:00)
[2017-05-07] MEDS ORDERED: ALUMINUM/MAGNESIUM/SIMETH (MAALOX MAX) 30 ML UDC PO PRN (13:00)
--- NOTE | 2017-05-07 13:38 | OPERATIVE REPORT ---
DATE OF OPERATION: 05/07/2017 SURGEON: Sammy Billings MD OPERATIONS CONSULTANT: CODI Ponce. PREOPERATIVE DIAGNOSIS: Left knee degenerative joint disease. POSTOPERATIVE DIAGNOSIS: Same. PROCEDURE PERFORMED: Left cemented posterior stabilized total knee arthroplasty. COMPLICATIONS: None. ESTIMATED BLOOD LOSS: 50 mL. FLUID REPLACEMENT: 1500 mL crystalloid fluid replacement. ANESTHESIA: Spinal with adductor canal block. DRAINS: None. SPECIMENS: Left knee sent for pathology. TOURNIQUET TIME: 52 minutes at 300 mmHg. OPERATIVE INDICATIONS: The patient is a 72-year-old female who is now about 6-1/2 months out from a right knee replacement. She had a long history of bilateral knee pain and discomfort and had been through extensive conservative care by her primary care physician. She had failed this. She has done well from her right knee. She elected to proceed with left total knee arthroplasty. OPERATIVE FINDINGS: Operative findings revealed advanced left knee DJD. She had extensive grade 4 changes of the medial femoral condyle and medial tibial plateau. She had grade 3 changes of the patellofemoral joint. The lateral compartment was fairly well spared. Moderate sized joint effusion. OPERATIVE IMPLANTS: Operative implants consisted of: 1. A Biomet Vanguard size 67.5 left posterior stabilized femoral component. 2. Biomet size 67 tibial tray. 3. A 10 mm posterior stabilized polyethylene insert. 4. A 31 x 8 all poly patella. OPERATIVE PROCEDURE: The patient taken to the operating room, identified and placed on the operating table in supine position. All contact areas were appropriately padded. IV antibiotics were provided by anesthesia team. A spinal anesthetic and adductor canal block had been provided in the holding area. Reynolds catheter was placed in sterile fashion. A left thigh tourniquet was then placed and left lower extremity was then prepped and draped in the usual sterile fashion. Left leg was elevated and exsanguinated with an Esmarch and tourniquet was placed at 300 mmHg. An anterior approach to the left knee was then performed through a longitudinal incision centered over the patella. Sharp dissection was carried out through the subcutaneous tissues down to the level of the extensor mechanism. Medial parapatellar arthrotomy incision was made. Some subperiosteal dissection was carried out medially. The fat pad was resected from beneath the patellar tendon. The lateral patellofemoral ligament was released. The patella was everted and the knee was flexed. The osteophytes were taken off the distal femur. The ACL and PCL were then released from the distal femur and the tibia was subluxated anteriorly. The external tibial alignment jig was then placed in the anterior face of the tibia and adjusted 14 mm medially. Proximal tibial cut was made to remove about 2 mm of bone from the most deficient aspect of the medial tibial plateau. Tibia was sized to a size 67. Some osteophytes were taken off medial and posteromedially. Attention was then drawn to the femur. The distal femur was entered with a sharp drill. Intramedullary canal was suctioned. A left 5-degree valgus cutting guide was placed. Distal femoral cutting block was pinned in place. Distal femoral cut was made to take an additional 3 mm of bone off the distal femur. The femur was then sized to a size 67.5. We downsized this almost an entire size as the medial lateral dimensions were quite narrow. The AP cutting block was pinned parallel to the epicondylar axis, which was 5 degrees of external rotation. The anterior cut, anterior chamfer, posterior cut, posterior chamfer cuts were made. Box cutting guide was placed and adjusted slightly lateral and the box cut was made. The knee was flexed. The remnants of the medial and lateral menisci were excised. The osteophytes were taken off the posterior aspect of the femur. Trial femoral component was placed. Tibial tray was pinned in maximum external rotation and the drill and stem punch were used to create defect in proximal tibia for the tibial tray. The knee was then trialed and the 10 mm insert fit most appropriately. Attention was then drawn to the patella. The patella was cleaned of all soft tissues. Patella thickness measured 22 mm, was cut down to 12. It was sized to a size 31 patella. Lug holes were drilled for a 31 patella. Lateral osteophyte was removed. Patella button was placed. Knee was taken through range of motion and patella tracked nicely with no thumbs test. Attention was then drawn toward placement of permanent components. All trial components were removed. A bone plug was placed in the distal femur to limit blood loss. A double batch of Palacos G cement was mixed. A left size 67.5 posterior stabilized femoral component, size 67 tibial tray, a 10 mm posterior stabilized polyethylene insert, and a 31 x 8 all poly patella were then cemented in place. Knee was brought out into full extension until cement hardened. A final cement check was then performed. The pericapsular tissues were injected with 75 mL of a combination of 20 mL of Exparel, 25 mL of 0.5% Marcaine with epinephrine and 30 mL of normal saline. The patient did receive 1 g of tranexamic acid. The tourniquet was then let down for a final tourniquet time of 52 minutes. Hemostasis was assured with use of electrocautery. The wound was once again irrigated. The extensor mechanism was then closed with a combination of #1 PDS suture and #1 Vicryl suture in a [id number] fashion. Extensor mechanism was checked and found to be intact. The subcutaneous tissues were then closed with 2-0 Dexon suture in a buried interrupted fashion. Skin was closed with skin sara. Leg was then cleaned and dried and a sterile dressing of Xeroform, 4 x 4, sterile cast padding and Travis bandage were applied. The patient then transferred to the recovery room in stable condition. The patient tolerated the procedure well with no complications. All needle and sponge counts were correct at the end of the operation. I attest to the content of the Intraoperative Record and any orders documented therein. Any exceptions are noted below. ALEJANDROD
--- NOTE | 2017-05-07 13:50 | DIAGNOSTIC IMAGING REPORT ---
LEFT KNEE 2 VIEWS History: Left total knee arthroplasty. Degenerative arthritis. Postop. FINDINGS: The patient is status post a left total knee arthroplasty. The hardware is intact. No fracture or dislocation. Skin sara are in place. IMPRESSION: Left total knee arthroplasty. No evidence for hardware complication. Electronically signed by: Amandeep Ortiz M.D. 05/07/2017 1:48 PM Dictated Date/Time: 05/07/2017 1:16 PM
--- NOTE | 2017-05-07 14:12 | Anesthesiology Progress Note ---
Anesthesia Post Op Note Date & Time May 07, 2017 at 14:12 Vital Signs Pain Intensity: 0 Vital Signs Past 12 Hours Date Time Temp Pulse Resp B/P (MAP) Pulse Ox O2 Delivery O2 Flow Rate FiO2 05/07/17 14:06 59 16 05/07/17 14:06 58 16 98 05/07/17 14:05 148/70 05/07/17 14:01 58 18 05/07/17 14:01 57 18 98 05/07/17 14:00 151/69 05/07/17 13:56 55 18 05/07/17 13:56 55 18 98 05/07/17 13:55 143/70 05/07/17 13:54 63 26 96 05/07/17 13:54 57 26 05/07/17 13:50 146/64 05/07/17 13:49 64 23 98 05/07/17 13:49 59 23 05/07/17 13:45 145/67 05/07/17 13:44 62 16 05/07/17 13:44 62 16 99 05/07/17 13:40 139/66 05/07/17 13:39 54 15 05/07/17 13:39 56 15 98 05/07/17 13:36 142/64 05/07/17 13:36 36.8 59 20 143/70 100 Nasal Cannula 2 05/07/17 13:34 59 15 05/07/17 13:34 59 15 97 05/07/17 13:33 60 15 99 05/07/17 13:33 61 15 05/07/17 13:30 140/66 05/07/17 13:28 64 21 99 05/07/17 13:28 57 21 05/07/17 13:26 131/68 05/07/17 13:23 50 13 05/07/17 13:23 58 13 98 05/07/17 13:20 147/64 05/07/17 13:18 54 14 97 05/07/17 13:18 54 14 05/07/17 13:17 56 17 05/07/17 13:17 61 17 96 05/07/17 13:12 58 13 96 05/07/17 13:12 58 13 05/07/17 13:11 62 14 84/74 94 05/07/17 13:11 61 14 05/07/17 13:06 56 14 05/07/17 13:06 57 14 114/64 95 05/07/17 13:01 63 12 05/07/17 13:01 59 12 130/64 95 05/07/17 12:56 65 19 126/70 96 05/07/17 12:56 36.8 62 18 126/70 96 Nasal Cannula 2 05/07/17 12:56 65 19 05/07/17 08:20 36.8 52 18 158/70 95 Room Air Notes Mental Status: alert / awake / arousable, participated in evaluation Pt Amnestic to Procedure: Yes Nausea / Vomiting: adequately controlled Pain: adequately controlled Airway Patency, RR, SpO2: stable & adequate BP & HR: stable & adequate Hydration State: stable & adequate Neuraxial Anesthesia: was administered, sensory block is resolving Anesthetic Complications: no major complications apparent
[2017-05-07] MEDS: ACETAMINOPHEN 500 MG TAB PO SCH ×2 (15:09→15:10)
[2017-05-07] MEDS: D5W AND 1/2NSS + 20MEQ KCL 1,000 ML IV SCH (15:09)
--- NOTE | 2017-05-07 16:07 | PROGRESS NOTE ---
DATE: 05/07/2017 SUBJECTIVE: A 72-year-old female. She is actually just postop from a left knee replacement. She is doing pretty well. Just getting the feeling back in her legs. No particular pain. No chest pain or shortness of breath. OBJECTIVE: VITAL SIGNS: Temperature 36.5. Vital signs stable. GENERAL: Reveals a healthy pleasant elderly female. She is sitting up in bed and talking to her family. Looks pretty comfortable. LUNGS: Clear to auscultation. HEART: Regular rate and rhythm. ABDOMEN: Soft, nontender, and nondistended. EXTREMITIES: Grossly neurovascularly intact except as follows: Examination of the left lower extremity reveals the leg to be well aligned. Dressing is clean, dry and intact. She can dorsiflex and plantarflex her foot appropriately. She has a good distal pulse. She is neurologically intact. X-RAYS: X-rays of the left knee from recovery room reviewed. It shows a cemented posterior stabilized total knee arthroplasty. Components looked to be in good position. No signs of problems. ASSESSMENT: A 72-year-old female postoperative from a left knee replacement, doing well. Pain is controlled. She is just starting to get the feeling back in her leg. She is neurologically intact. PLAN: 1. DVT prophylaxis including thigh-high TEDs, SCDs, and aspirin twice a day. 2. PT/OT. Weightbearing as tolerated. Left total knee protocol. 3. Pain control, doing pretty well with current pain regimen. 4. IV antibiotics x24 hours. 5. Disposition: She is planning to be discharged to home and she is going to do outpatient therapy at [facility] once medically stable.
[2017-05-07] MEDS: KETOROLAC TROMETHAMINE 15 MG/ML VIAL IV. SCH ×2 (16:31→22:14)
[2017-05-07] MEDS: FERROUS GLUCONATE 324 MG TAB PO SCH (18:01)
[2017-05-07] MEDS ORDERED: TRANEXAMIC ACID INJ 1,000 MG in SODIUM CHLORIDE 0.9% 100ML 100 ML IV SCH (19:00)
[2017-05-07] MEDS: CEFAZOLIN IV 1,000 MG in DEXTROSE 5% 50ML 50 ML IV SCH (19:58)
[2017-05-07] MEDS: DOCUSATE SODIUM 100 MG CAP PO SCH (20:56)
[2017-05-07] MEDS: SENNA 8.6 MG TAB PO SCH (20:56)
[2017-05-07] MEDS: ASPIRIN 325 MG ECTAB PO SCH (20:56)
[2017-05-07] MEDS ORDERED: ASPEC325 PO (21:55)
[2017-05-07] MEDS ORDERED: MORP-157 PO (21:55)
[2017-05-07] MEDS ORDERED: FRRG PO (21:55)
[2017-05-07] MEDS ORDERED: ULT50X PO (21:55)
[2017-05-07] MEDS ORDERED: ACET-24 PO (21:55)
--- NOTE | 2017-05-07 21:58 | Discharge Instructions ---
Discharge Instructions Date of Service May 07, 2017. Admission Reason for Admission: Left Knee Degenerative Joint Disease Discharge Discharge Diagnosis / Problem: Left Knee Replacement Discharge Goals Goal(s): Decrease discomfort, Improve function, Increase independence, Improve disease control, Therapeutic intervention Activity Recommendations Activity Limitations: per Instructions/Follow-up section Weightbearing Status: Left weightbearing . Instructions / Follow-Up Instructions / Follow-Up ACTIVITY RECOMMENDATIONS: Physical Therapy: * You will go to physical therapy three times each week for four to six weeks after your surgery in order to regain your knee range of motion and to retrain your knee to work properly. * It is just as important to make sure you are getting your knee perfectly straight as it is to regain your knee bend. * Taking a pain pill an hour before therapy can help you have a more productive and comfortable therapy session. Home Exercise: * You were shown a series of exercises (heel props, heel slides, etc.) in the hospital. Do these exercises three to four times each day including the exercises you were shown in physical therapy. Walking: * Get up and walk several times each day. For the first four weeks, try not to stand or walk for more than one hour at a time. If you do stand or walk for more than one hour, you will not hurt anything, but your knee and leg will likely swell. * As you feel comfortable, you may change from the walker or crutches to a cane and then to independent walking. MEDICATIONS: New Medicine: * You will likely be taking one or more of these medications: 1. MS Contin - A long-acting pain medication. Take 1 tablet twice a day for the first ten days to decrease your baseline level of pain. 2. Tramadol - A quick and shorter-acting pain medication. Take one to two tablets every four to six hours to lessen your pain. 3. Iron Sulfate - Take three times each day for the month after surgery to help you replace the blood lost during surgery. 4. Aspirin - Thins your blood to lessen the chance of forming a blood clot. * The most common side effects of pain medicine and iron are nausea and constipation. If nausea or constipation is too much of a problem or if you have any questions about your new medicines or doses, call [facility] at [phone]. We will try to help you manage these issues. VERY IMPORTANT TO READ AND REVIEW" Pain: * The immediate post-operative period after knee replacement surgery is often quite painful. * You are given a prescription for pain medicine. You should take it, as directed, when you need it, especially before physical therapy and before going to bed. Pain that interferes with sleep is very common and can last several months. * You will likely need pain medicine for the first four to six weeks. It will not stop all of the pain. The pain will lessen and as you feel better, you may change to milder pain medicine such as Tylenol. * The most common side effects of pain medicine are nausea and constipation, so don't take more than you need. SPECIAL CARE INSTRUCTIONS: TEDs/Elastic Stockings: * The white elastic stockings help limit swelling and prevent blood clots from forming in your legs. The more you wear them, the more they work. * Wear them for six weeks after knee replacement surgery and four weeks after partial knee replacement. Prevention of Infection: * Take antibiotics one hour before any dental cleaning, dental work, urological procedure, gastrointestinal procedure or any invasive surgery in order to prevent your new joint from getting infected. * You may get the antibiotics from the doctor performing the procedure or you may call our office at before and we will call in a prescription to the pharmacy of your choice. Things to Watch For: * Drainage from the incision site that occurs more than one week after your surgery. * Severely increased knee/leg pain or swelling. * Increased redness at the incision site. * Fever above 102 degrees Fahrenheit. * Unusual chest pain or shortness of breath. * Unusual pain or burning with urination. Call [facility] at with any of the above problems or if you have any questions about your medicines or recovery. FOLLOW UP VISIT: Make an appointment to see your doctor for approximately two weeks after surgery for a progress check and staple removal by calling the office at . Current Hospital Diet Patient's current hospital diet: Regular Diet Discharge Diet Recommended Diet: Regular Diet Procedures Procedures Performed: Left Total Knee Arthroplasty, Cemented Pending Studies Studies pending at discharge: no Medical Emergencies . Who to Call and When: Medical Emergencies: If at any time you feel your situation is an emergency, please call [phone] immediately. . Non-Emergent Contact Non-Emergency issues call your: Surgeon . "Provider Documentation" section prepared by Sammy Billings. . VTE Core Measure Inpt VTE Proph given/why not?: Other Anticoagulation, T.E.D. Stockings, SCD's
[2017-05-08] VITALS (7 sets, daily range): BP systolic 129–149; BP diastolic 68–82; PULSE 65–70; TEMP 36.6–37; O2SAT 94–96
[2017-05-08] MEDS: D5W AND 1/2NSS + 20MEQ KCL 1,000 ML IV SCH ×2 (01:23→11:00)
[2017-05-08] MEDS: CEFAZOLIN IV 1,000 MG in DEXTROSE 5% 50ML 50 ML IV SCH (03:47)
[2017-05-08] MEDS: KETOROLAC TROMETHAMINE 15 MG/ML VIAL IV. SCH ×4 (03:48→21:34)
[2017-05-08] MEDS: ACETAMINOPHEN 500 MG TAB PO SCH ×3 (06:08→21:33)
[2017-05-08 07:00] LABS: HEMATOCRIT 34.7 % (37-47); MEAN CELL VOLUME 77.1 fL (80-100); MEAN CORPUSCULAR HEMOGLOBIN 26.9 pg (25-34); MEAN CORPUSCULAR HGB CONC 34.9 g/dl (32-36); MEAN PLATELET VOLUME 10.4 fL (7.4-10.4); PLATELET COUNT 198 K/uL (130-400); WHITE BLOOD COUNT 9.78 K/uL (4.8-10.8)
[2017-05-08 07:28] LABS: BUN/CREATININE RATIO 16.6 (10-20); CALCIUM 8.4 mg/dl (8.5-10.1); CREATININE 0.56 mg/dl (0.60-1.20); POTASSIUM 3.9 mmol/L (3.5-5.1)
[2017-05-08] MEDS: ASPIRIN 325 MG ECTAB PO SCH ×2 (08:34→21:18)
[2017-05-08] MEDS: AMLODIPINE BESYLATE 5 MG TAB PO SCH (08:34)
[2017-05-08] MEDS: ATORVASTATIN 20 MG TAB PO SCH (08:34)
[2017-05-08] MEDS: LISINOPRIL 10 MG TAB PO SCH (08:34)
[2017-05-08] MEDS: PANTOprazole SOD 40 MG TAB PO SCH (08:35)
[2017-05-08] MEDS: MULTIVITAMIN TAB PO SCH (08:35)
[2017-05-08] MEDS: CHOLECALCIFEROL 1000 INTER.UNIT TAB PO SCH (08:35)
[2017-05-08] MEDS: CALCIUM 600MG + VIT D 400 IU TAB PO SCH (08:35)
[2017-05-08] MEDS: FERROUS GLUCONATE 324 MG TAB PO SCH ×3 (08:35→17:52)
[2017-05-08] MEDS: DOCUSATE SODIUM 100 MG CAP PO SCH ×2 (08:36→21:18)
--- NOTE | 2017-05-08 08:46 | PROGRESS NOTE ---
DATE: 05/08/2017 SUBJECTIVE: A 72-year-old female, postop day 1 from a left knee replacement. She is doing pretty well. Pain is controlled. Denies any chest pain or shortness of breath. Not feeling dizzy or lightheaded. OBJECTIVE: VITAL SIGNS: Temperature 37.0. Vital signs stable. PHYSICAL EXAMINATION: GENERAL: Reveals a healthy, pleasant, elderly female. She is sitting up in bed and looks pretty comfortable. EXTREMITIES: Examination of the left leg reveals the leg to be well aligned. Dressing is clean, dry and intact. She can dorsiflex and plantarflex her foot appropriately. She is neurologically intact. LABORATORY DATA: Hemoglobin 12.1, hematocrit 34.7. Electrolytes are stable. ASSESSMENT: A 72-year-old female, postop day 1 from a left knee replacement, doing pretty well. Pain is controlled. She is neurologically intact. PLAN: 1. DVT prophylaxis including thigh-high TEDs, SCDs, and aspirin twice a day. 2. PT/OT. Weightbearing as tolerated. Left total knee protocol. 3. Pain control. Doing pretty well with current pain regimen. 4. Disposition: She is planning to be discharged to home and going to do outpatient therapy at [facility], once medically stable.
[2017-05-08] MEDS: SENNA 8.6 MG TAB PO SCH (21:18)
[2017-05-09] MEDS: KETOROLAC TROMETHAMINE 15 MG/ML VIAL IV. SCH ×2 (03:47→09:31)
[2017-05-09] MEDS: ACETAMINOPHEN 500 MG TAB PO SCH (06:16)
[2017-05-09 07:59] VITALS: BP 124/62; PULSE 62; TEMP 36.9; TEMP 39.6; O2SAT 95
[2017-05-09 08:28] VITALS: O2SAT 95
[2017-05-09] MEDS: PANTOprazole SOD 40 MG TAB PO SCH (08:38)
[2017-05-09] MEDS: AMLODIPINE BESYLATE 5 MG TAB PO SCH (08:38)
[2017-05-09] MEDS: ATORVASTATIN 20 MG TAB PO SCH (08:38)
[2017-05-09] MEDS: FERROUS GLUCONATE 324 MG TAB PO SCH (08:38)
[2017-05-09] MEDS: LISINOPRIL 10 MG TAB PO SCH (08:39)
[2017-05-09] MEDS: MULTIVITAMIN TAB PO SCH (08:39)
[2017-05-09] MEDS: CHOLECALCIFEROL 1000 INTER.UNIT TAB PO SCH (08:39)
[2017-05-09] MEDS: CALCIUM 600MG + VIT D 400 IU TAB PO SCH (08:39)
--- NOTE | 2017-05-09 09:11 | Orthopedic Progress Note ---
Orthopedic Progress Note Date of Service May 09, 2017. Subjective Post OP Day: 2 Additional Notes: pain controlled. No new complaints. Objective N/V intact, dressing C/D/I, A&O x3, toes mobile Date Time Temp Pulse Resp B/P (MAP) Pulse Ox O2 Delivery O2 Flow Rate FiO2 05/09/17 08:28 95 Room Air 05/09/17 07:59 36.9 62 16 124/62 (82) 95 Room Air 05/09/17 07:03 Room Air 05/08/17 22:49 36.9 65 16 129/75 (93) 94 Room Air 05/08/17 21:17 145/78 (100) 05/08/17 19:15 Room Air 05/08/17 15:47 36.6 70 18 148/82 (104) 95 Room Air 05/08/17 11:31 36.8 68 24 140/68 (92) 95 Room Air Assessment & Plan Assessment: POD #2 LEFT TKA Plan: SHE WAS SEEN AND EXAMINED BY DR. ARMAS TODAY. Discharge Planning Discharge Planning: home Pain Management: other (CONTINUE CURRENT PAIN MANAGEMENT ) DVT Prophylaxis: TEDs, SCDs, ASA Therapy: Physical Therapy
[2017-05-09] MEDS: ASPIRIN 325 MG ECTAB PO SCH (09:26)
[2017-05-09] MEDS: DOCUSATE SODIUM 100 MG CAP PO SCH (09:26)
[2017-05-09 09:42] VITALS: BP 124/62; PULSE 62; TEMP 36.9; O2SAT 95
--- NOTE | 2017-05-20 07:27 | DISCHARGE SUMMARY ---
ADMITTING PHYSICIAN AND SURGEON: Dr. Billings. ADMITTING DIAGNOSIS: Left knee degenerative joint disease. SURGERY PERFORMED: Left total knee arthroplasty. SECONDARY DIAGNOSES: Hypertension, elevated cholesterol, history of cerebral aneurysm, breast cancer, obesity. CONSULTS: None obtained. HISTORY AND PHYSICAL EXAMINATION: Well documented in the patient's chart. HOSPITAL COURSE: The patient was admitted on 05/07/2017 underwent total knee arthroplasty, tolerated the procedure without complications. She was transferred to the PACU postoperatively and later to the orthopedic floor for further care. She was given Ancef for antibiotic prophylaxis, JONAS stockings, SCDs and aspirin for DVT prophylaxis. Her hemoglobin, hematocrit and vital signs were monitored during her hospital stay and remained stable. She did not require any blood transfusions. There were no complications. By postoperative day 2, she was tolerating a general diet, pain was controlled with oral pain medicine. She was participating in physical therapy and had no signs or symptoms of deep vein thrombosis. On postop day 2, she was discharged home. She was given printed discharge instructions including prescriptions for extra strength Tylenol, aspirin 325 mg b.i.d., iron supplement and tramadol. Continue her home medicines. Continue physical therapy with weightbearing as tolerated and JONAS stockings. Follow up in 10-12 days or sooner if there are any problems or concerns.
== END 2017-05-09 12:11 | disposition home or self-care (01) | DRG 470 ==
LOC: C.ACU 07:54 → C.3E 08:46 → UNDOADMIN 12:56 → ENRESERV 13:29
PROVIDERS: ADMIT Orthopaedic Surgery Sports Medicine; ATTEND Orthopaedic Surgery Sports Medicine
PROC: 0SRD0J9 Replacement of Left Knee Joint with Synthetic Substitute, Cemented, Open Approach (ICD-10-PCS; principal; 2017-05-07 10:40)
DX: M17.12 Unilateral primary osteoarthritis, left knee (principal); I10 Essential (primary) hypertension; E78.00 Pure hypercholesterolemia, unspecified; E66.9 Obesity, unspecified; M25.462 Effusion, left knee; I34.1 Nonrheumatic mitral (valve) prolapse; Z96.651 Presence of right artificial knee joint; Z68.30 Body mass index [BMI] 30.0-30.9, adult; Z86.79 Personal history of other diseases of the circulatory system; Z87.891 Personal history of nicotine dependence

== ENCOUNTER 2021-03-09 00:08 | Inpatient (IN) ==
--- NOTE | 2021-03-09 00:26 | Emergency Department Note ---
Impression & Plan Acute respiratory failure, Multifocal pneumonia, Lactic acidosis ED Provider Note Name: SRIKANTH VALDIVIA Age: 75 Sex: F Arrives Via: Ambulance Informant: Patient, EMS ED Provider: Alejo Kidd MD Chief Complaint: Shortness of breath Impression: Acute Respiratory Failure Multifocal Pneumonia Lactic Acidosis Medical Decision Makin yr old female with history breast cancer, htn, hlp who arrives with acutely worsening sob over the last few days. Hypoxic for EMS who gave solumedrol, duoneb x 3, and cpap en route with vast improvement. Exam with poor lung sounds with significant rhonchi/crackles right lower lung. Afebrile and WBC normal though CXR with large RLL infiltrate. Lactate returned elevated and procalcitonin wnl. Given IV fluids, empiric abx. CT obtained given elevated dimer and CTA Chest is read as pulmonary edema. I suspect this is more infectious than heart failure given she has no swelling in legs, no history of heart failure, and her story seems more infectious related. For sepsis management, given the patients BMI >30, IBW was used to calculate the 30ml/kg fluid bolus. Prior Medical Record and Triage/Nursing Notes reviewed by Me Additional history obtained from chart Differentials:Reactive airway disease, pneumonia, pneumothorax, COPD, CHF, infections, cardiac ischemia, pulmonary embolism, musculoskeletal, gastrointestinal, as well as other pathologies. Vital Signs: reviewed and remarkable for hypoxia Interventions: saline lock, nss bolus 2 L IV, zosyn iv, vanco iv Labs:Reviewed and remarkable for elevated dimer Imaging:X ray results are stated below per my interpretation: Chest: 1 view: large right lower lobe infiltrate [facility] Radiologist interpretation reviewed by me: "CTA CHEST: Airspace infiltrates to both lungs, right greater than left. Favor pulmonary edema, particularly given interstitial thickening, cardiomegaly with CAD, and small pleural effusions. No PE or aortic dissection. Operative changes of the right breast. Radiologist: Maury Kwong M.D." EKG:Per My Interpretation: Indication SHOB: Sinus Tachy 107 bpm, qtc 493 with LBBB. No Ectopy. No Ischemia. Compared to EKG 05/07/17, no significant changes. Cardiac/Tele Monitoring: Cardiac Monitoring: An Order was placed for continuous cardiac monitoring. The monitor shows a rate of 90 with a normal sinus rhythm. Consults:Dr Leroy Cesar Hospitalist Plan: Disposition:Hospitalization. Condition: Fair History of Present Illness:75 yr old female arrives for evaluation of shortness of breath. Patient notes several days worsening shortness of breath. Associated productive cough, chills, and weakness. Tonight rapidly worsening. Exertion made worse, rest made better. So severe that EMS called tonight. She was found to be 70% on Room Air and had diffusely tight lung sounds. She was given neb x 3, solumedrol 125mg iv, and cpap with vast improvement. Denies chest pain, back pain, syncope, abdominal pain nor other symptoms. She has had no leg swelling, calf pain, nor history of dvt/pe. History pneumonia and sepsis several years ago. History Aneurysm. ROS: See above HPI for pertinent positives & negatives. A total of 10 systems reviewed and were otherwise negative. Past Medical History:HTN, hlp, breath cancer Past Surgical History:Mastectomy, Knee surgery, Brain surgery Family History:non contributory Social History:Retried, previous smoker, rare etoh Home Medications:See Below Allergies:NKDA Vitals:Blood Pressure: 133/77, Pulse 90, RR 30, T 36.6C, O2 94% on BiPAP Physical Exam: GENERAL: Patient is unwell appearing and in moderate distress. EYES: No scleral icterus, unremarkable pupils. ENT: Mucous membranes moist, no nasal congestion. NECK: No masses appreciated, nomeningismus, trachea is midline. RESPIRATORY: dyspnea/tachypnea. crackles/rhonchi throughout right lungs, crackle CARDIOVASCULAR: Regular rate/rhythm.No murmurs, rubs, gallops appreciated. GASTROINTESTINAL: Abdomen soft, non-tender, no peritonitis.Bowel sounds positive.No masses appreciated. BACK: No midline tenderness, no CVA tenderness EXTREMITIES: Normal motion all extremities, no cyanosis, no edema. NEUROLOGIC: Alert and oriented, no acute motor or sensory deficits, no focal weakness, cranial nerves grossly intact. SKIN: No rash, no jaundice, no diaphoresis. PSYCH: Appropriate GCS: 15 ED Course: Times/Reassessments: much improved after some time on bipap and breathing comfortably. Critical Care: I have personally spent 35 minutes of critical care time in the direct management of this patient. Acute respiratory failure secondary to multifocal pneumonia requiring BiPAP and septic management. This was a life/limb threatening event. This 35 minutes is in excess of all separately billable procedures. 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: No Beliefs That Will Affect Care: None Current Living Situation: Alone Other Information That Helps Us Care for You: No Feels Safe at Home: Yes Safety Concerns: Feels Safe At This Time Assistive Devices: BiPap, Nebulizer and Oxygen - Continuous Allergies Allergies Allergy/AdvReac Type Severity Reaction Status Date / Time No Known Allergies Allergy Mild Verified 03/09/21 01:09 Home Meds Home Medications Medication Instructions Recorded Confirmed alendronate 70 mg PO UD 03/09/21 03/09/21 amlodipine 5 mg PO DAILY 03/09/21 03/09/21 atorvastatin 20 mg PO DAILY 03/09/21 03/09/21 cholecalciferol (vitamin D3) 25 mcg PO DAILY 03/09/21 03/09/21 [Vitamin D3] lisinopril 10 mg PO DAILY 03/09/21 03/09/21 metoprolol succinate 100 mg PO DAILY 03/09/21 03/09/21 omega [id number] oil [Fish Oil] 1 cap PO DAILY 03/09/21 03/09/21 Results & Data (ED) Vital Signs Vital Signs - 24 hr 03/09/21 00:26 03/09/21 00:29 03/09/21 00:30 Temperature 36.1 C L Temperature Source Temporal Artery Scan Pulse Rate 111 H 105 H 103 H Pulse Rate from SpO2 Sensor 103 H Respiratory Rate 35 H 37 H 40 H Respiratory Effort / Characteristics Spontaneous Labored Retracting Short of Breath SOB on Exertion Spontaneous Accessory Muscle Use Labored Respiratory Depth Deep Deep Respiratory Pattern Tachypnea Rapid/Deep Tachypnea Blood Pressure 129/69 115/57 L Blood Pressure Mean 89 76 Pulse Oximetry 94 94 95 Oxygen Delivery Method CPAP BiPAP Fraction of Inspired Oxygen 70 70 Sepsis New/Unexplained Change in Mental Status N/A Sepsis Action Taken by Nursing Physician Notified 03/09/21 00:31 03/09/21 01:00 03/09/21 01:30 Temperature Temperature Source Pulse Rate 103 H 98 H 95 H Pulse Rate from SpO2 Sensor 103 H 98 H 95 H Respiratory Rate 35 H 29 H 28 H Respiratory Effort / Characteristics Respiratory Depth Respiratory Pattern Blood Pressure 137/68 Blood Pressure Mean 91 Pulse Oximetry 95 97 96 Oxygen Delivery Method BiPAP BiPAP BiPAP Fraction of Inspired Oxygen 70 70 70 Sepsis New/Unexplained Change in Mental Status Sepsis Action Taken by Nursing 03/09/21 01:40 03/09/21 02:10 03/09/21 02:16 Temperature Temperature Source Pulse Rate 107 H 92 H Pulse Rate from SpO2 Sensor 94 H 92 H Respiratory Rate 20 31 H 35 H Respiratory Effort / Characteristics Respiratory Depth Respiratory Pattern Blood Pressure 120/76 130/68 Blood Pressure Mean 90 88 Pulse Oximetry 98 96 97 Oxygen Delivery Method BiPAP BiPAP Fraction of Inspired Oxygen 70 50 50 Sepsis New/Unexplained Change in Mental Status Sepsis Action Taken by Nursing 03/09/21 02:25 03/09/21 02:30 Temperature Temperature Source Pulse Rate 87 88 Pulse Rate from SpO2 Sensor 87 88 Respiratory Rate 28 H 28 H Respiratory Effort / Characteristics Respiratory Depth Respiratory Pattern Blood Pressure 130/68 123/63 Blood Pressure Mean 88 83 Pulse Oximetry 94 95 Oxygen Delivery Method Fraction of Inspired Oxygen 50 50 Sepsis New/Unexplained Change in Mental Status Sepsis Action Taken by Nursing Laboratory Data Result diagrams: 03/09/21 00:51 03/09/21 00:51 Lab Results 03/09/21 03/09/21 03/09/21 Range/Units 00:46 00:46 00:51 WBC (4.8-10.8) K/uL RBC (4.2-5.4) M/uL Hgb (12.0-16.0) g/dL Hct (37-47) % MCV (80-100) fL MCH (25-34) pg MCHC (32-36) g/dL RDW Std Deviation (36.4-46.3) fL RDW Coeff of [place] (11.5-14.5) % Plt Count (130-400) K/uL MPV (7.4-10.4) fL Immature Gran % (Auto) % Neut % (Auto) % Lymph % (Auto) % [place] % (Auto) % Eos % (Auto) % Baso % (Auto) % Neut # (Auto) (1.4-6.5) K/uL Lymph # (Auto) (1.2-3.4) K/uL [place] # (Auto) (0.11-0.59) K/uL Eos # (Auto) (0-0.5) K/uL Baso # (Auto) (0-0.2) K/uL Immature Gran # (Auto) (0.00-0.02) K/uL PT (9.0-12.0) Seconds INR (0.9-1.1) D-Dimer (0-500) ug/L FEU VBG pH (7.36-7.41) VBG pCO2 (38-50) mmHg VBG pO2 mmHg VBG HCO3 mmol/L VBG O2 Saturation % VBG Base Excess mEq/L Barometric Pressure mm/Hg Sodium (136-145) mmol/L Potassium (3.5-5.1) mmol/L Chloride (98-107) mmol/L Carbon Dioxide (21-32) mmol/L Anion Gap (3-11) BUN (7-18) mg/dl Creatinine (0.6-1.2) mg/dl Est Cr Clr Drug Dosing ml/min Est GFR ( Amer) ml/min Est GFR (Non-Af Amer) ml/min BUN/Creatinine Ratio (10-20) Glucose (70-99) mg/dl Estimat Average Glucose mg/dl Hemoglobin A1c (4.5-5.6) % Lactate 2.6 H* (0.4-2.0) mmol/L Calcium (8.5-10.1) mg/dl Magnesium (1.8-2.4) mg/dl Total Bilirubin (0.2-1) mg/dl Direct Bilirubin (0-0.2) mg/dl AST (15-37) U/L ALT (12-78) U/L Alkaline Phosphatase (45-117) U/L Troponin I (0-0.045) ng/ml NT-Pro-B Natriuret Pep (0-1800) pg/ml Total Protein (6.4-8.2) gm/dl Albumin (3.4-5.0) gm/dl Lipase (73-393) U/L Procalcitonin (0-0.5) ng/ml COVID-19 Eval Order Covid19 at [facility] SARS-CoV-2 (PCR) NEGATIVE (Negative) 03/09/21 03/09/21 03/09/21 Range/Units 00:51 00:51 00:51 WBC 9.36 (4.8-10.8) K/uL RBC 4.47 (4.2-5.4) M/uL Hgb 11.7 L (12.0-16.0) g/dL Hct 35.1 L (37-47) % MCV 78.5 L (80-100) fL MCH 26.2 (25-34) pg MCHC 33.3 (32-36) g/dL RDW Std Deviation 42.6 (36.4-46.3) fL RDW Coeff of [place] 14.8 H (11.5-14.5) % Plt Count 262 (130-400) K/uL MPV 10.3 (7.4-10.4) fL Immature Gran % (Auto) 0.2 % Neut % (Auto) 87.6 % Lymph % (Auto) 6.7 % [place] % (Auto) 5.2 % Eos % (Auto) 0.1 % Baso % (Auto) 0.2 % Neut # (Auto) 8.19 H (1.4-6.5) K/uL Lymph # (Auto) 0.63 L (1.2-3.4) K/uL [place] # (Auto) 0.49 (0.11-0.59) K/uL Eos # (Auto) 0.01 (0-0.5) K/uL Baso # (Auto) 0.02 (0-0.2) K/uL Immature Gran # (Auto) 0.02 (0.00-0.02) K/uL PT 10.8 (9.0-12.0) Seconds INR 1.1 (0.9-1.1) D-Dimer 3460 H* (0-500) ug/L FEU VBG pH (7.36-7.41) VBG pCO2 (38-50) mmHg VBG pO2 mmHg VBG HCO3 mmol/L VBG O2 Saturation % VBG Base Excess mEq/L Barometric Pressure mm/Hg Sodium 138 (136-145) mmol/L Potassium 3.8 (3.5-5.1) mmol/L Chloride 106 (98-107) mmol/L Carbon Dioxide 23 (21-32) mmol/L Anion Gap 9.0 (3-11) BUN 19 H (7-18) mg/dl Creatinine 0.89 (0.6-1.2) mg/dl Est Cr Clr Drug Dosing 58.8 ml/min Est GFR ( Amer) 73.0 ml/min Est GFR (Non-Af Amer) 63.0 ml/min BUN/Creatinine Ratio 21.4 H (10-20) Glucose 197 H (70-99) mg/dl Estimat Average Glucose mg/dl Hemoglobin A1c (4.5-5.6) % Lactate (0.4-2.0) mmol/L Calcium 8.3 L (8.5-10.1) mg/dl Magnesium 1.9 (1.8-2.4) mg/dl Total Bilirubin 2.5 H (0.2-1) mg/dl Direct Bilirubin 0.4 H (0-0.2) mg/dl AST 17 (15-37) U/L ALT 20 (12-78) U/L Alkaline Phosphatase 74 (45-117) U/L Troponin I 0.021 (0-0.045) ng/ml NT-Pro-B Natriuret Pep 1348 (0-1800) pg/ml Total Protein 6.6 (6.4-8.2) gm/dl Albumin 3.1 L (3.4-5.0) gm/dl Lipase 97 (73-393) U/L Procalcitonin (0-0.5) ng/ml COVID-19 Eval Order SARS-CoV-2 (PCR) (Negative) 03/09/21 03/09/21 03/09/21 Range/Units 00:51 00:51 00:51 WBC (4.8-10.8) K/uL RBC (4.2-5.4) M/uL Hgb (12.0-16.0) g/dL Hct (37-47) % MCV (80-100) fL MCH (25-34) pg MCHC (32-36) g/dL RDW Std Deviation (36.4-46.3) fL RDW Coeff of [place] (11.5-14.5) % Plt Count (130-400) K/uL MPV (7.4-10.4) fL Immature Gran % (Auto) % Neut % (Auto) % Lymph % (Auto) % [place] % (Auto) % Eos % (Auto) % Baso % (Auto) % Neut # (Auto) (1.4-6.5) K/uL Lymph # (Auto) (1.2-3.4) K/uL [place] # (Auto) (0.11-0.59) K/uL Eos # (Auto) (0-0.5) K/uL Baso # (Auto) (0-0.2) K/uL Immature Gran # (Auto) (0.00-0.02) K/uL PT (9.0-12.0) Seconds INR (0.9-1.1) D-Dimer (0-500) ug/L FEU VBG pH 7.35 L (7.36-7.41) VBG pCO2 42 (38-50) mmHg VBG pO2 49 mmHg VBG HCO3 23 mmol/L VBG O2 Saturation 83.1 % VBG Base Excess -2.8 mEq/L Barometric Pressure 732.8 mm/Hg Sodium (136-145) mmol/L Potassium (3.5-5.1) mmol/L Chloride (98-107) mmol/L Carbon Dioxide (21-32) mmol/L Anion Gap (3-11) BUN (7-18) mg/dl Creatinine (0.6-1.2) mg/dl Est Cr Clr Drug Dosing ml/min Est GFR ( Amer) ml/min Est GFR (Non-Af Amer) ml/min BUN/Creatinine Ratio (10-20) Glucose (70-99) mg/dl Estimat Average Glucose 105 mg/dl Hemoglobin A1c 5.3 (4.5-5.6) % Lactate (0.4-2.0) mmol/L Calcium (8.5-10.1) mg/dl Magnesium (1.8-2.4) mg/dl Total Bilirubin (0.2-1) mg/dl Direct Bilirubin (0-0.2) mg/dl AST (15-37) U/L ALT (12-78) U/L Alkaline Phosphatase (45-117) U/L Troponin I (0-0.045) ng/ml NT-Pro-B Natriuret Pep (0-1800) pg/ml Total Protein (6.4-8.2) gm/dl Albumin (3.4-5.0) gm/dl Lipase (73-393) U/L Procalcitonin 0.06 (0-0.5) ng/ml COVID-19 Eval Order SARS-CoV-2 (PCR) (Negative) Administered Medications Amlodipine Besylate (Amlodipine Besylate 5 Mg Tab) 5 mg PO DAILY [facility] Stop: 04/08/21 08:59 Last Admin: 03/09/21 07:55 Dose: 5 mg Documented by: [id number] Atorvastatin Calcium (Atorvastatin 20 Mg Tab) 20 mg PO DAILY [facility] Stop: 04/08/21 08:59 Last Admin: 03/09/21 07:56 Dose: 20 mg Documented by: [id number] Doxycycline Hyclate (Doxycycline Hyclate 100 Mg Cap) 100 mg PO Q12H [facility] Stop: 03/16/21 17:59 Last Admin: 03/09/21 17:15 Dose: 100 mg Documented by: [id number] Cefepime HCl 2,000 mg/ Syringe 20 mls @ 5 mls/min IV Q12H [facility]; Protocol Stop: 03/16/21 05:59 Last Admin: 03/09/21 17:15 Dose: 5 mls/min Documented by: [id number] Admin: 03/09/21 06:07 Dose: 5 mls/min Documented by: [id number] Ipratropium Stanton (Ipratropium Stanton Neb Soln 0.02% 2.5 Ml Vial) 0.5 mg INH Q6R [facility] Stop: 04/08/21 06:59 Last Admin: 03/09/21 20:09 Dose: 0.5 mg Documented by: [id number] Admin: 03/09/21 13:23 Dose: 0.5 mg Documented by: [id number] Admin: 03/09/21 07:26 Dose: 0.5 mg Documented by: [id number] Levalbuterol HCl (Levalbuterol 1.25mg/0.5ml Neb) 1.25 mg INH Q6R [facility] Stop: 04/08/21 06:59 Last Admin: 03/09/21 20:09 Dose: 1.25 mg Documented by: [id number] Admin: 03/09/21 13:23 Dose: 1.25 mg Documented by: [id number] Admin: 03/09/21 07:26 Dose: 1.25 mg Documented by: [id number] Lisinopril (Lisinopril 10 Mg Tab) 10 mg PO DAILY [facility] Stop: 04/08/21 08:59 Last Admin: 03/09/21 07:56 Dose: 10 mg Documented by: [id number] Metoprolol Succinate (Metoprolol Succ 50mg Ext Rel Tab) 100 mg PO DAILY [facility] Stop: 04/08/21 08:59 Last Admin: 03/09/21 07:55 Dose: 100 mg Documented by: [id number] Discontinued Medications Sodium Chloride (Nss 1000ml) 1,000 mls @ 999 mls/hr IV .Q1H1M ONE Stop: 03/09/21 02:36 Last Infusion: 03/09/21 03:53 Dose: 0 mls/hr Documented by: [id number] Infusion: 03/09/21 02:57 Dose: 0 mls/hr Documented by: [id number] Admin: 03/09/21 02:08 Dose: 999 mls/hr Documented by: [id number] Sodium Chloride (Nss 1000ml) 1,000 mls @ 999 mls/hr IV .Q1H1M ONE Stop: 03/09/21 02:36 Last Admin: 03/09/21 02:57 Dose: Not Given Documented by: [id number] Piperacillin Sod/Tazobactam Sod (Zosyn) 4.5 gm in 120 mls @ 240 mls/hr IV NOW ONE Stop: 03/09/21 02:38 Last Infusion: 03/09/21 02:57 Dose: 0 mls/hr Documented by: [id number] Admin: 03/09/21 02:19 Dose: 240 mls/hr Documented by: [id number] Vancomycin HCl 1,750 mg/ (Sodium Chloride) 535 mls @ 200 mls/hr IV NOW ONE Stop: 03/09/21 04:49 Last Infusion: 03/09/21 06:15 Dose: 0 mls/hr Documented by: [id number] Admin: 03/09/21 03:21 Dose: 200 mls/hr Documented by: [id number] Magnesium Sulfate/Dextrose (Magnesium Sulfate / D5w) 1 gm in 100 mls @ 50 mls/hr IV Q2H [facility] Stop: 03/09/21 06:16 Last Infusion: 03/09/21 08:11 Dose: 0 mls/hr Documented by: [id number] Admin: 03/09/21 06:10 Dose: 50 mls/hr Documented by: [id number] Infusion: 03/09/21 05:01 Dose: 0 mls/hr Documented by: [id number] Admin: 03/09/21 02:56 Dose: 50 mls/hr Documented by: [id number] Potassium Chloride 20 meq/ (Lactated Ringer's) 1,010 mls @ 250 mls/hr IV .Q4H3M ONE Stop: 03/09/21 06:25 Last Admin: 03/09/21 03:52 Dose: Not Given Documented by: [id number] Doxycycline Hyclate 100 mg/ (Dextrose) 110 mls @ 50 mls/hr IV NOW STA Stop: 03/09/21 07:38 Last Infusion: 03/09/21 08:25 Dose: 0 mls/hr Documented by: [id number] Admin: 03/09/21 06:07 Dose: 50 mls/hr Documented by: [id number] Furosemide 40 mg/ Syringe 4 mls @ 4 mls/min IV ONE ONE Stop: 03/09/21 18:31 Last Admin: 03/09/21 20:38 Dose: 4 mls/min Documented by: [id number] Ioversol (Optiray 350 500ml) 110 ml IV ONCE ONE Stop: 03/09/21 02:04 Last Admin: 03/09/21 02:04 Dose: 110 ml Documented by: [id number] Discharge Plan Visit Data Chief Complaint: Respiratory Distress Stated Complaint: RESPIRATORY DISTRESS ED Provider: Alejo Kidd Discharge Problem: Acute respiratory failure, Multifocal pneumonia, Lactic acidosis Patient Disposition: Admitted As Inpatient Discharge Instructions Interventions: ED Discharge Assessment Last Done: 03/09/21 03:56 Discharge Problem: Acute respiratory failure Qualifiers: Respiratory failure complication: hypoxia Qualified Code(s): J96.01 - Acute respiratory failure with hypoxia
[2021-03-09 01:03] LABS: Basophils # (auto) 0.02 K/uL (0-0.2); Basophils % (auto) 0.2 %; Eosinophils # (auto) 0.01 K/uL (0-0.5); Eosinophils % (auto) 0.1 %; Hematocrit (blood only) 35.1 % (37-47); Hemoglobin 11.7 g/dL (12.0-16.0); Immature Granulocytes # (auto) 0.02 K/uL (0.00-0.02); Immature Granulocytes % (auto) 0.2 %; Lymphocytes # (auto) 0.63 K/uL (1.2-3.4); Lymphocytes % (auto) 6.7 %; Mean Corpuscular Hemoglobin 26.2 pg (25-34); Mean Corpuscular Hgb Conc 33.3 g/dL (32-36); Mean Corpuscular Volume 78.5 fL (80-100); Mean Platelet Volume 10.3 fL (7.4-10.4); Monocytes # (auto) 0.49 K/uL (0.11-0.59); Monocytes % (auto) 5.2 %; Neutrophils # (auto) 8.19 K/uL (1.4-6.5); Neutrophils % (auto) 87.6 %; Platelet Count 262 K/uL (130-400); RDW Coefficient of Variation 14.8 % (11.5-14.5); RDW Standard Deviation 42.6 fL (36.4-46.3); Red Blood Count 4.47 M/uL (4.2-5.4); White Blood Count 9.36 K/uL (4.8-10.8)
[2021-03-09 01:16] LABS: INR 1.1 (0.9-1.1); Prothrombin Time 10.8 Seconds (9.0-12.0)
[2021-03-09 01:19] LABS: D Dimer 3460 ug/L FEU (0-500)
[2021-03-09 01:20] LABS: Albumin Level 3.1 gm/dl (3.4-5.0); BUN Creatinine Ratio 21.4 (10-20); Bilirubin Direct 0.4 mg/dl (0-0.2); Calcium 8.3 mg/dl (8.5-10.1); Creatinine Clr Calc Pharmacy 58.8 ml/min; Magnesium 1.9 mg/dl (1.8-2.4); Potassium 3.8 mmol/L (3.5-5.1)
[2021-03-09 01:25] LABS: Bilirubin,Total 2.5 mg/dl (0.2-1); Total Protein 6.6 gm/dl (6.4-8.2); Troponin I 0.021 ng/ml (0-0.045)
[2021-03-09] MEDS ORDERED: SODIUM CHLORIDE 0.9% 1000ML 1,000 ML IV ONE ×2 (01:36)
[2021-03-09 01:44] LABS: Base Excess VBG -2.8 mEq/L; Oxygen Saturation VBG 83.1 %; pH VBG 7.35 (7.36-7.41)
[2021-03-09] MEDS ORDERED: OPTIRAY 350 500ml IV ONE (02:03)
[2021-03-09] MEDS ORDERED: VANCOMYCIN CONSULT ACTIVE PRN (02:09)
[2021-03-09] MEDS ORDERED: VANCOMYCIN HCL 1,750 MG in SODIUM CHLORIDE 0.9% 500 ML IV ONE (02:09)
[2021-03-09] MEDS ORDERED: PIPERACILL/TAZOBAC CONSULT ACTIVE PRN (02:09)
[2021-03-09] MEDS ORDERED: PIPERACILLIN/TAZOBACTAM 4.5 GM/120 ML BAG IV ONE (02:09)
[2021-03-09] MEDS ORDERED: POTASSIUM CHLORIDE 20 MEQ in LACTATED RINGER'S 1,000 ML IV ONE (02:23)
--- NOTE | 2021-03-09 02:41 | History & Physical Report ---
Date of Service March 09, 2021 Assessment & Plan (1) Severe sepsis: SIRS plus lactic acidosis Secondary to HCAP (jail visitations)/atypical pneumonia diastolic dysfunction (EF 55% on TTE 2018), equivocal volume status Possible pulmonary edema on initial CT read although BNP normal Patient without fluid retention complaints. 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 Pulmonary consult without improvement Check hemoglobin A1c Anemia work-up, transfuse PRBC if hemoglobin less than 7 and or for symptomatic anemia DVT prophylaxis. SCDs Re: History SAH Full code Text document was generated using [employer] voice recognition software. It may contain grammatical or spelling errors. Kindly contact undersigned for clarification of any documentation item in question. History of Present Illness Chief Complaint: Worsening shortness of breath Primary Care Provider: Katia Landers, History obtained from patient and records. 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 Last confinement 2016 under Orthopedics service for elective left total knee arthroplasty. Few days history of junky cough symptoms with worsening shortness of breath. Denies chest pain or fluid retention. Denies aspiration. Not sure about sick contacts given periodic visits to who is a resident at [facility] whom patient last visited last week. Patient denies abdominal pain/black/bloody stools. Patient called EMS. O2 sats noted to be 70s upon arrival of EMS. CPAP initiated by EMS. Patient given breathing treatments and Solu-Medrol on route to the hospital. Patient given Vanco and Zosyn at the ER for sepsis. 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 Allergies Allergy/AdvReac Type Severity Reaction Status Date / Time No Known Allergies Allergy Mild Verified 03/09/21 01:09 Home Medications Medication Instructions Recorded Confirmed Type alendronate 70 mg PO UD 03/09/21 03/09/21 History amlodipine 5 mg PO DAILY 03/09/21 03/09/21 History atorvastatin 20 mg PO DAILY 03/09/21 03/09/21 History cholecalciferol (vitamin D3) 25 mcg PO DAILY 03/09/21 03/09/21 History [Vitamin D3] lisinopril 10 mg PO DAILY 03/09/21 03/09/21 History metoprolol succinate 100 mg PO DAILY 03/09/21 03/09/21 History omega 9-eob-ctx-fish oil [Fish Oil] 1 cap PO DAILY 03/09/21 03/09/21 History Past Med/Surg History Social History Smoking Status: Former smoker Hx Alcohol Use: No Hx Substance Use: No Communication Analyst Required: No Beliefs That Will Affect Care: None Current Living Situation: Alone Other Information That Helps Us Care for You: No Feels Safe at Home: Yes Safety Concerns: Feels Safe At This Time Assistive Devices: Glasses Review of Systems Review of Systems: As per HPI, all 10 systems reviewed, all other ROS negative Physical Exam Physical Exam: GENERAL: Slightly uncomfortable, minimal respiratory distress SKIN: Normal color, warm HEENT: [place] palpebral conjunctivae, no ptosis, dry buccal mucosa, BiPAP in place NECK : Supple, short neck, no tenderness CHEST : Decreased breath sounds, bilateral rhonchi, expiratory wheezes, no tenderness HEART : Tachycardic, no obvious murmurs ABDOMEN: Some distention, nontender EXTREMITIES : No LE swelling/tenderness, no other conspicuous deformities noted NEUROLOGIC : Coherent, no facial asymmetry, rest tremors, no other gross focality Results & Data Results & Data ([facility]) Vital Signs (Past 12 Hours) Vital Signs Temp Pulse Resp BP Pulse Ox 03/09/21 02:16 35 H 97 03/09/21 01:40 107 H 20 120/76 98 03/09/21 01:30 95 H 28 H 96 03/09/21 01:00 98 H 29 H 137/68 97 03/09/21 00:31 103 H 35 H 95 03/09/21 00:30 103 H 40 H 115/57 L 95 03/09/21 00:29 36.1 C L 105 H 37 H 129/69 94 03/09/21 00:26 111 H 35 H 94 Laboratory Results Laboratory Results WBC 9.36 K/uL (4.8-10.8) 03/09/21 00:51 RBC 4.47 M/uL (4.2-5.4) 03/09/21 00:51 Hgb 11.7 g/dL (12.0-16.0) L 03/09/21 00:51 Hct 35.1 % (37-47) L 03/09/21 00:51 MCV 78.5 fL (80-100) L 03/09/21 00:51 MCH 26.2 pg (25-34) 03/09/21 00:51 MCHC 33.3 g/dL (32-36) 03/09/21 00:51 RDW Std Deviation 42.6 fL (36.4-46.3) 03/09/21 00:51 RDW Coeff of [place] 14.8 % (11.5-14.5) H 03/09/21 00:51 Plt Count 262 K/uL (130-400) 03/09/21 00:51 MPV 10.3 fL (7.4-10.4) 03/09/21 00:51 Immature Gran % (Auto) 0.2 % 03/09/21 00:51 Neut % (Auto) 87.6 % 03/09/21 00:51 Lymph % (Auto) 6.7 % 03/09/21 00:51 [place] % (Auto) 5.2 % 03/09/21 00:51 Eos % (Auto) 0.1 % 03/09/21 00:51 Baso % (Auto) 0.2 % 03/09/21 00:51 Neut # (Auto) 8.19 K/uL (1.4-6.5) H 03/09/21 00:51 Lymph # (Auto) 0.63 K/uL (1.2-3.4) L 03/09/21 00:51 [place] # (Auto) 0.49 K/uL (0.11-0.59) 03/09/21 00:51 Eos # (Auto) 0.01 K/uL (0-0.5) 03/09/21 00:51 Baso # (Auto) 0.02 K/uL (0-0.2) 03/09/21 00:51 Immature Gran # (Auto) 0.02 K/uL (0.00-0.02) 03/09/21 00:51 PT 10.8 Seconds (9.0-12.0) 03/09/21 00:51 INR 1.1 (0.9-1.1) 03/09/21 00:51 D-Dimer 3460 ug/L FEU (0-500) H* 03/09/21 00:51 VBG pH 7.35 (7.36-7.41) L 03/09/21 00:51 VBG pCO2 42 mmHg (38-50) 03/09/21 00:51 VBG pO2 49 mmHg 03/09/21 00:51 VBG HCO3 23 mmol/L 03/09/21 00:51 VBG O2 Saturation 83.1 % 03/09/21 00:51 VBG Base Excess -2.8 mEq/L 03/09/21 00:51 Barometric Pressure 732.8 mm/Hg 03/09/21 00:51 Sodium 138 mmol/L (136-145) 03/09/21 00:51 Potassium 3.8 mmol/L (3.5-5.1) 03/09/21 00:51 Chloride 106 mmol/L (98-107) 03/09/21 00:51 Carbon Dioxide 23 mmol/L (21-32) 03/09/21 00:51 Anion Gap 9.0 (3-11) 03/09/21 00:51 BUN 19 mg/dl (7-18) H 03/09/21 00:51 Creatinine 0.89 mg/dl (0.6-1.2) 03/09/21 00:51 Est Cr Clr Drug Dosing 58.8 ml/min 03/09/21 00:51 Est GFR ( Amer) 73.0 ml/min 03/09/21 00:51 Est GFR (Non-Af Amer) 63.0 ml/min 03/09/21 00:51 BUN/Creatinine Ratio 21.4 (10-20) H 03/09/21 00:51 Glucose 197 mg/dl (70-99) H 03/09/21 00:51 Lactate 2.6 mmol/L (0.4-2.0) H* 03/09/21 00:51 Calcium 8.3 mg/dl (8.5-10.1) L 03/09/21 00:51 Magnesium 1.9 mg/dl (1.8-2.4) 03/09/21 00:51 Total Bilirubin 2.5 mg/dl (0.2-1) H 03/09/21 00:51 Direct Bilirubin 0.4 mg/dl (0-0.2) H 03/09/21 00:51 AST 17 U/L (15-37) 03/09/21 00:51 ALT 20 U/L (12-78) 03/09/21 00:51 Alkaline Phosphatase 74 U/L (45-117) 03/09/21 00:51 Troponin I 0.021 ng/ml (0-0.045) 03/09/21 00:51 NT-Pro-B Natriuret Pep 1348 pg/ml (0-1800) 03/09/21 00:51 Total Protein 6.6 gm/dl (6.4-8.2) 03/09/21 00:51 Albumin 3.1 gm/dl (3.4-5.0) L 03/09/21 00:51 Lipase 97 U/L (73-393) 03/09/21 00:51 Procalcitonin 0.06 ng/ml (0-0.5) 03/09/21 00:51 COVID-19 Eval Order Covid19 at [facility] 03/09/21 00:46 SARS-CoV-2 (PCR) NEGATIVE (Negative) 03/09/21 00:[address] chest initial read: Airspace infiltrates both lungs right greater than left possible pulmonary edema given interstitial thickening, cardiomegaly with CAD, small pleural effusions. No PE or aortic dissection. Operative changes right breast. EKG as per my interpretation : Rate 110, sinus tachycardia, LBBB
[2021-03-09] MEDS: MAGNESIUM SULFATE / D5W 1 GM/100 ML BAG IV SCH ×2 (02:56→06:10)
[2021-03-09] MEDS ORDERED: CEFEPIME CONSULT ACTIVE PRN (04:59)
[2021-03-09] MEDS ORDERED: ACETAMINOPHEN 325 MG TAB PO PRN (04:59)
[2021-03-09] MEDS ORDERED: DOXYCYCLINE HYCLATE 100 MG in DEXTROSE 5% 100 ML IV STA (05:27)
[2021-03-09 06:01] LABS: Estimated Average Glucose 105 mg/dl; Hemoglobin A1C 5.3 % (4.5-5.6)
[2021-03-09] MEDS: CEFEPIME 2,000 MG in SYRINGE 0 ML IV SCH ×2 (06:07→17:15)
[2021-03-09] MEDS ORDERED: XOPENEX/ATROVENT 1.25mg/0.5MG NEB COMBO NEB SCH (07:00)
[2021-03-09] MEDS: LEVALBUTEROL 1.25MG/0.5ML NEB INH SCH ×3 (07:26→20:09)
[2021-03-09] MEDS: IPRATROPIUM BROMIDE NEB SOLN 0.02% 2.5 ML VIAL INH SCH ×3 (07:26→20:09)
[2021-03-09] MEDS: METOPROLOL SUCC 50MG EXT REL TAB PO SCH (07:55)
[2021-03-09] MEDS: amLODIPine BESYLATE 5 MG TAB PO SCH (07:55)
[2021-03-09] MEDS: ATORVASTATIN 20 MG TAB PO SCH (07:56)
[2021-03-09] MEDS: lisinopril 10 MG TAB PO SCH (07:56)
--- NOTE | 2021-03-09 08:08 | XRay Report ---
XR chest 1V portable HISTORY: Shortness of breath. COMPARISON: Chest 10/25/2014. FINDINGS: No pneumothorax. The heart is mildly enlarged. Diffuse interstitial thickening with a right perihilar and bibasilar airspace opacities. Emphysema. Small bilateral pleural effusions. IMPRESSION: Perihilar airspace opacities, bibasilar densities, interstitial thickening, cardiomegaly, small bilat eral pleural effusions which favors moderate asymmetric pulmonary edema. Superimposed pneumonia could also have a similar appearance. ACT 112: Negative or not required by law. Electronically signed by: Amandeep Ortiz M.D. 03/09/2021 8:07 AM
--- NOTE | 2021-03-09 08:49 | CT Scan Report ---
CHEST CTA for PULMONARY ARTERIES CT DOSE: 526.66 mGy.cm HISTORY: PE - elevated dimer, shortness of breath. TECHNIQUE: Multiaxial CT images of the chest were performed following the intravenous administration of contrast to evaluate the pulmonary arteries. Maximal intensity projection images were also obtaine d. A dose lowering technique was utilized adhering to the principles of ALARA. COMPARISON STUDY: None. FINDINGS: Limited views of the upper abdomen demonstrate 2 small hypodense lesions within the liver w ith the largest in the left hepatic lobe measuring 1 cm. These are incompletely characterized on this study but favor cysts. The visualized spleen and adrenal glands are unremarkable. Normal caliber eso phagus. Small bilateral pleural effusions. Postoperative changes within the right breast. Borderline enlarged mediastinal and bilateral hilar lymph nodes. This is nonspecific but could be chronic. No pe ricardial effusion. The heart is enlarged. Moderate to severe coronary artery calcifications are note d. Normal caliber thoracic aorta with no evidence for dissection. The majority of the bilateral lower lobe subsegmental and left lower lobe segmental pulmonary arteries are nondiagnostic due to the resp iratory motion artifact. Otherwise, no filling defects within the remaining pulmonary arteries to sug gest a pulmonary embolus. No fractures within the visualized osseous structures. No pneumothorax. The central airways are patent. Perihilar patchy groundglass airspace opacities with interlobular septal thickening at the lung bases. This is most pronounced on the right. There are also more consolidativ e airspace opacities within the lower lobes posteriorly. Findings favor moderate asymmetric pulmonary edema. An atypical pneumonia could also have a similar appearance. There is an 8 mm subpleural nodul e within the right upper lobe on image 230. A 6 mm subpleural nodule within the right lower lobe on i mage 69. IMPRESSION: 1. No evidence for pulmonary embolus with limitations as described above. 2. Above findings likely represent moderate asymmetric pulmonary edema. A superimposed pneumonia coul d also have a similar appearance. 3. Small bilateral pleural fusions. 4. There are 2 subcentimeter nodules within the right lung with the largest in the right upper lobe m easuring 8 mm[address] follow-up recommended to ensure resolution once the patient's pulmona ry abnormalities have resolved. 5. These findings were called/faxed to the referring physician following dictation. ACT 112: Positive. There are findings on this exam that require communication between the performing entity and the patient following Patient Test Result Information Act ([place] Act 112) guidelines. Electronically signed by: Amandeep Ortiz M.D. 03/09/2021 8:48 AM
[2021-03-09 09:27] LABS: Appearance Urine Clear (Clear); Bilirubin Urine Negative (Negative); Blood Urine Negative (Negative); Color Urine Yellow; Glucose Urine UA Negative (Negative); Ketones Urine Negative (Negative); Leukocyte Esterase Urine Negative (Negative); Nitrite Urine Negative (Negative); Protein Urine Negative (Negative); Specific Gravity Urine 1.032 (1.000-1.030); Urobilinogen Urine Negative (Negative)
--- NOTE | 2021-03-09 15:09 | Electrocardiogram Report ---
Test Reason : Blood Pressure : / mmHG Vent. Rate : 107 BPM Atrial Rate : 107 BPM P-R Int : 166 ms QRS Dur : 152 ms QT Int : 370 ms P-R-T Axes : 026 -17 050 degrees QTc Int : 493 ms Poor data quality, interpretation may be adversely affected Sinus tachycardia Left bundle branch block Abnormal ECG When compared with ECG of 07-MAY-2017 09:18, Premature ventricular complexes are no longer Present Vent. rate has increased BY 39 BPM Confirmed by Jasiel Cochran ([id number]) on 03/09/2021 3:08:58 PM Referred By: REFERRED SELF Confirmed By:Justin Cochran
--- NOTE | 2021-03-09 15:10 | Electrocardiogram Report ---
Test Reason : Blood Pressure : / mmHG Vent. Rate : 092 BPM Atrial Rate : 092 BPM P-R Int : 190 ms QRS Dur : 142 ms QT Int : 422 ms P-R-T Axes : 036 037 066 degrees QTc Int : 521 ms Poor data quality, interpretation may be adversely affected Normal sinus rhythm Left bundle branch block Abnormal ECG When compared with ECG of 09-MAR-2021 00:18, (unconfirmed) No significant change was found Confirmed by Jasiel Cochran ([id number]) on 03/09/2021 3:09:43 PM Referred By: REFERRED SELF Confirmed By:Justin Cochran
--- NOTE | 2021-03-09 16:42 | Hospitalist Progress Note ---
Date of Service March 09, 2021 Assessment & Plan (1) Severe sepsis: Acute respiratory failure with hypoxia Severe sepsis Atypical Pneumonia Pulmonary edema -CTA:No evidence for pulmonary embolus with limitations as described above. Above findings likely represent moderate asymmetric pulmonary edema. A superimposed pneumonia could also have a similar appearance. Small bilateral pleural fusions. There are 2 subcentimeter nodules within the right lung with the largest in the right upper lobe measuring 8 mm. [address] follow-up recommended to ensure resolution once the patient's pulmonary abnormalities have resolved. -Lactate levels normalized with IV fluids Normal procalcitonin level Blood cultures pending Continue empiric antibiotics cefepime, doxycycline Continue nebs Check echo Continue supplemental oxygen as needed Wean off of oxygen as able Pulmonary nodules Incidental finding on CT Needs repeat chest CT in 3 months H/O Diastolic dysfunction Update ECHO Normal BNP Monitor volume status H/O SVT/VTs Chronic LBBB Continue metoprolol Hypertension Continue lisinopril, metoprolol, Amlodipine Hyperlipidemia on Lipitor H/O Subarachnoid hemorrhage Secondary to right PCOM aneurysm S/P Clipping Monitor Symptomatic Anemia Work up pending DVT Px: SCDs Re:SAH Code Status Full code Admission and Anticipated Discharge Date Admission Date: March 09, 2021 Subjective Patient is seen and examined at bedside Cough, dyspnea slowly improving Denies chest pain, dizziness, nausea, abdominal pain Offers no other complaints Echo pending Review of Systems Review of Systems: All systems reviewed & are unremarkable except as noted in HPI & below Physical Exam Physical Exam: Physical Exam: Vitals signs as noted above General Appearance:Moderately built and nourished, no apparent distress Head: normocephalic, Atraumatic Eyes: normal inspection, EOMI Neck: supple, Trachea midline Respiratory/Chest: Decreased breath sounds, CTA Cardiovascular: S1, S2, No murmur Abdomen/GI:Soft, Non tender, Bowel sounds present Extremities/Musculoskeletal:normal inspection, Trace edema Neurologic/Psych:AAOX3, grossly no focal neurological deficits Skin: normal color, warm Results & Data Results & Data ([facility]) Vital Signs (Past 12 Hours) Vital Signs Temp Pulse Resp BP Pulse Ox 03/09/21 16:05 36.3 C L 87 19 114/68 94 03/09/21 13:23 72 18 95 03/09/21 12:08 36.6 C 88 20 130/72 93 03/09/21 07:28 85 20 93 03/09/21 07:23 36.7 C 85 19 120/73 93 Laboratory Results Short CBC 03/09/21 Range/Units 00:51 WBC 9.36 (4.8-10.8) K/uL Hgb 11.7 L (12.0-16.0) g/dL Hct 35.1 L (37-47) % Plt Count 262 (130-400) K/uL BMP 03/09/21 00:51 Sodium 138 Potassium 3.8 Chloride 106 Carbon Dioxide 23 BUN 19 H Creatinine 0.89 Glucose 197 H Calcium 8.3 L Cardiac Enzymes 03/09/21 Range/Units 00:51 Troponin I 0.021 (0-0.045) ng/ml Liver Function 03/09/21 Range/Units 00:51 Total Bilirubin 2.5 H (0.2-1) mg/dl Direct Bilirubin 0.4 H (0-0.2) mg/dl AST 17 (15-37) U/L ALT 20 (12-78) U/L Alkaline Phosphatase 74 (45-117) U/L Albumin 3.1 L (3.4-5.0) gm/dl Urine 03/09/21 Range/Units 08:50 Urine Color Yellow Urine Appearance Clear (Clear) Urine pH 5.0 (4.5-7.5) Ur Specific [place] 1.032 H (1.000-1.030) Urine Protein Negative (Negative) Urine Glucose (UA) Negative (Negative)
[2021-03-09] MEDS: DOXYCYCLINE HYCLATE 100 MG CAP PO SCH (17:15)
[2021-03-09] MEDS ORDERED: FUROSEMIDE 40 MG in SYRINGE 0 ML IV ONE (18:30)
[2021-03-10] MEDS: LEVALBUTEROL 1.25MG/0.5ML NEB INH SCH ×4 (01:16→20:01)
[2021-03-10] MEDS: IPRATROPIUM BROMIDE NEB SOLN 0.02% 2.5 ML VIAL INH SCH ×4 (01:16→20:01)
[2021-03-10] MEDS: DOXYCYCLINE HYCLATE 100 MG CAP PO SCH ×2 (05:32→17:57)
[2021-03-10] MEDS: CEFEPIME 2,000 MG in SYRINGE 0 ML IV SCH ×2 (05:32→17:56)
[2021-03-10 06:30] LABS: Basophils # (auto) 0.01 K/uL (0-0.2); Basophils % (auto) 0.1 %; Eosinophils # (auto) 0.01 K/uL (0-0.5); Eosinophils % (auto) 0.1 %; Hematocrit (blood only) 34.6 % (37-47); Hemoglobin 11.6 g/dL (12.0-16.0); Immature Granulocytes # (auto) 0.02 K/uL (0.00-0.02); Immature Granulocytes % (auto) 0.3 %; Lymphocytes # (auto) 1.29 K/uL (1.2-3.4); Lymphocytes % (auto) 16.3 %; Mean Corpuscular Hemoglobin 26.5 pg (25-34); Mean Corpuscular Hgb Conc 33.5 g/dL (32-36); Mean Corpuscular Volume 79.2 fL (80-100); Mean Platelet Volume 10.2 fL (7.4-10.4); Monocytes # (auto) 0.59 K/uL (0.11-0.59); Monocytes % (auto) 7.5 %; Neutrophils # (auto) 5.97 K/uL (1.4-6.5); Neutrophils % (auto) 75.7 %; Platelet Count 302 K/uL (130-400); RDW Coefficient of Variation 15.1 % (11.5-14.5); Red Blood Count 4.37 M/uL (4.2-5.4); Reticulocyte % 2.3 % (0.5-2.0); White Blood Count 7.89 K/uL (4.8-10.8)
[2021-03-10 06:59] LABS: Creatinine Clr Calc Pharmacy 63.7 ml/min; Est GFR (Non-African American) 71.6 ml/min; Potassium 3.6 mmol/L (3.5-5.1)
[2021-03-10 07:12] LABS: Ferritin 295.9 ng/ml (8-388); Troponin I 0.647 ng/ml (0-0.045)
[2021-03-10 07:24] LABS: Folate (Folic Acid) 18.5 ng/ml (>5.38)
[2021-03-10] MEDS: ATORVASTATIN 20 MG TAB PO SCH (08:14)
[2021-03-10] MEDS: lisinopril 10 MG TAB PO SCH (08:14)
[2021-03-10] MEDS: amLODIPine BESYLATE 5 MG TAB PO SCH (08:14)
[2021-03-10] MEDS: METOPROLOL SUCC 50MG EXT REL TAB PO SCH (08:14)
--- NOTE | 2021-03-10 12:47 | Cardiology Progress Note ---
Date of Service March 10, 2021 Assessment & Plan (1) Acute HFrEF (heart failure with reduced ejection fraction): (2) Left bundle branch block: (3) Left atrial enlargement: The patient's procalcitonin was initially normal on presentation, but is now mildly elevated. proBNP and troponin are also mildly elevated. Chest x-ray reviewed, although it is difficult to differentiate, it is most reasonable to treat the patient for acute systolic heart failure. As noted, she has new mild left ventricular systolic dysfunction compared to a prior echocardiogram which had been performed in 2018. Her mildly elevated pulmonary pressures could reflect high diastolic filling pressures and perhaps t his will improve with diuretic therapy. I think it is reasonable to continue to bridge her with antibiotics for the time being, but perhaps at least the IV antibiotics can be discontinued in the next 24 to 48 hours depending upon how she does with diuretic therapy. Her left bundle branch block is chronic, is previously observed on EKG tracings performed at this institution in 2015 and 2017. She has not had any мария symptoms of angina, and I do not think her presentation is consistent with an acute coronary syndrome. She is already on metoprolol and lisinopril as an outpatient which will be continued. Add furosemide 40 mg IV daily, spironolactone 12.5 mg daily, potassium 40 mEq now. DVT prophylaxis: Agree with this, given history of past subarachnoid hemorrhage. Admission and Anticipated Discharge Date Admission Date: March 09, 2021 Andreea Hollis is a 75 year old female seen in cardiology consultation per the request of Dr Locke for evaluation of congestive heart failure. The patient's primary care provider is Dr. aPgan whom the patient sees at [facility]. She has not previously followed with cardiology as an outpatient. Patient presents with 2 weeks of progressive shortness of breath. She notes that she walks regularly and noted the shortness of breath while walking. She also had a significant episode of dyspnea while trying to sleep. She does not describe having had orthopnea, but felt short of breath in bed, which did not improve with going for a walk. She had a cough that preceded her hospital stay x1 week. Thus far, SARS-CoV-2 PCR is negative, procalcitonin negative, chest x-ray revealed moderate asymmetric pulmonary edema with small bilateral pleural effusions. CT of the chest was negative for pulmonary embolism with some degree of artifact limiting evaluation. Small bilateral pleural effusions were noted with moderate asymmetric pulmonary edema per the radiology report.Tw incidental pulmonary nodules were reported. The patient has remote history of subarachnoid hemorrhage secondary to right PCOM aneurysm status post clipping. Family History: Mother of congestive heart failure at age 79. No known CAD. Review of Systems Review of Systems: All systems reviewed & are unremarkable except as noted in HPI & below Physical Exam Physical Exam: Temp Pulse Resp BP Pulse Ox 36.8 C 87 20 109/67 96 03/10/21 07:06 03/10/21 08:00 03/10/21 07:21 03/10/21 07:06 03/10/21 07:21 Constitutional: WD/WN, vitals as above Respiratory: Auscultation: no crackles and no wheezes mildly reduced BS at the bases Cardiovascular: RRR, no murmur, no edema Gastrointestinal (Abdomen): normal bowel sounds, soft, nontender, no hepatosplenomegaly Neurologic: PERRL, EOMI, accommodation nl, no face palsy, no dysarthria Results & Data ([facility]) Vital Signs (Past 12 Hours) Vital Signs Temp Pulse Pulse Resp BP Pulse Ox 03/10/21 08:00 87 03/10/21 07:21 88 20 96 03/10/21 07:06 36.8 C 82 20 109/67 96 03/10/21 03:40 36.8 C 100 H 19 107/65 95 03/10/21 01:16 20 94 Laboratory Results Cardiac Enzymes 03/10/21 Range/Units 06:13 Troponin I 0.647 H* (0-0.045) ng/ml CBC 03/10/21 Range/Units 06:13 WBC 7.89 (4.8-10.8) K/uL RBC 4.37 (4.2-5.4) M/uL Hgb 11.6 L (12.0-16.0) g/dL Hct 34.6 L (37-47) % Plt Count 302 (130-400) K/uL Neut # (Auto) 5.97 (1.4-6.5) K/uL Lymph # (Auto) 1.29 (1.2-3.4) K/uL [place] # (Auto) 0.59 (0.11-0.59) K/uL Eos # (Auto) 0.01 (0-0.5) K/uL Baso # (Auto) 0.01 (0-0.2) K/uL Comprehensive Metabolic Panel 03/10/21 Range/Units 06:13 Sodium 140 (136-145) mmol/L Potassium 3.6 (3.5-5.1) mmol/L Chloride 107 (98-107) mmol/L Carbon Dioxide 23 (21-32) mmol/L BUN 18 (7-18) mg/dl Creatinine 0.80 (0.6-1.2) mg/dl Glucose 121 H (70-99) mg/dl Calcium 8.0 L (8.5-10.1) mg/dl Intake and Output 03/09/21 03/10/21 03/10/21 22:59 06:59 14:59 Intake Total 360 / 920 200 / 920 Output Total 400 / 900 Balance 360 / 20 -200 / 20 Intake: Oral 360 / 710 200 / 710 Output: Urine 400 / 900 Other: # Unmeasured Voids 1 1 Weight 86.5 kg Weight Measurement Method Standing Scale Diagnostic Findings Telemetry reveals sinus rhythm with left bundle branch block at 9100 bpm with occasional PVCs. EKG performed 03/09/2021 reveals sinus rhythm at 92 bpm with left bundle branch block, QRS duration 142 ms. -Compared to prior tracings, left bundle branch block previously noted on EKGs at [facility] in 2014 and 2016 as reviewed in the [facility] system. Echocardiogram performed 03/09/2021 and reviewed independently: Mild concentric left ventricular hypertrophy Septal motion is consistent with left bundle branch block, with normal LV wall motion otherwise The left ventricular systolic function is mildly reduced, qualitative LVEF 45- 50%, mild mitral regurgitation is present, mild to moderate tricuspid regurgitation is present, mild pulmonary hypertension, pulmonary artery systolic pressure estimated to be 47 mmHg. Compared to the report of the prior outpatient echocardiogram performed at [facility] in June,, severe left atrial margin was noted at that time as well as abnormal septal motion consistent with underlying left bundle branch block. There however has been an interval decline in the left ventricular systolic function which is graded to be 55 to-as well as patient's spouse a couple days to the pharmacy with severe negotiation because is an expensive given his 4 doses discharge 60% at that time
[2021-03-10] MEDS ORDERED: POTASSIUM CHLORIDE CRTAB 20 MEQ TABCR PO SCH (13:00)
[2021-03-10] MEDS: SPIRONOLACTONE 12.5 MG TAB PO SCH (13:28)
[2021-03-10] MEDS: FUROSEMIDE 40 MG in SYRINGE 0 ML IV SCH (13:28)
--- NOTE | 2021-03-10 16:27 | Hospitalist Progress Note ---
Date of Service March 10, 2021 Assessment & Plan (1) Severe sepsis: Acute respiratory failure with hypoxia Severe sepsis Atypical Pneumonia Pulmonary edema -CTA:No evidence for pulmonary embolus with limitations as described above. Above findings likely represent moderate asymmetric pulmonary edema. A superimposed pneumonia could also have a similar appearance. Small bilateral pleural fusions. There are 2 subcentimeter nodules within the right lung with the largest in the right upper lobe measuring 8 mm[address] follow-up recommended to ensure resolution once the patient's pulmonary abnormalities have resolved. -Lactate levels normalized with IV fluids Elevated procalcitonin Blood cultures: No growth to date Continue cefepime, doxycycline Day #2 Continue nebs Weaned off of supplemental oxygen Pulmonary nodules Incidental finding on CT Needs repeat chest CT in 3 months Acute on chronic systolic heart failure-POA Chronic LBBB Mild Troponin elevation--Likely Type II MA -ECHO: Mild concentric LVH. Septal motion consistent with conduction abnormality. Left ventricular wall motion is normal. Left ventricle systolic function is mildly reduced. EF 45 to 50%. Mild MR. Mild to moderate TR. Mild pulmonary hypertension is present. 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 DVT Px: SCDs Re:SAH Code Status Full code Admission and Anticipated Discharge Date Admission Date: March 09, 2021 Subjective Patient is seen and examined at bedside States feeling much better today Cough, dyspnea resolved Denies chest pain, dizziness, nausea, abdominal pain Discussed with cardiology today. Review of Systems Review of Systems: As per HPI, all 10 systems reviewed, all other ROS negative Physical Exam Physical Exam: Physical Exam: Vitals signs as noted above General Appearance:Moderately built and nourished, no apparent distress Head: normocephalic, Atraumatic Eyes: normal inspection, EOMI Neck: supple, Trachea midline Respiratory/Chest: Decreased breath sounds, CTA Cardiovascular: S1, S2, No murmur Abdomen/GI:Soft, Non tender, Bowel sounds present Extremities/Musculoskeletal:normal inspection, Trace edema Neurologic/Psych:AAOX3, grossly no focal neurological deficits Skin: normal color, warm Results & Data Results & Data ([facility]) Vital Signs (Past 12 Hours) Vital Signs Temp Pulse Pulse Resp BP Pulse Ox 03/10/21 15:54 80 03/10/21 15:45 36.8 C 83 18 112/65 92 03/10/21 13:10 85 20 94 03/10/21 12:48 36.4 C L 84 18 107/69 94 03/10/21 08:00 87 03/10/21 07:21 88 20 96 03/10/21 07:06 36.8 C 82 20 109/67 96 Laboratory Results Short CBC 03/10/21 Range/Units 06:13 WBC 7.89 (4.8-10.8) K/uL Hgb 11.6 L (12.0-16.0) g/dL Hct 34.6 L (37-47) % Plt Count 302 (130-400) K/uL BMP 03/10/21 06:13 Sodium 140 Potassium 3.6 Chloride 107 Carbon Dioxide 23 BUN 18 Creatinine 0.80 Glucose 121 H Calcium 8.0 L Cardiac Enzymes 03/10/21 03/10/21 Range/Units 06:13 13:03 Troponin I 0.647 H* 0.486 H* (0-0.045) ng/ml
[2021-03-11] MEDS: IPRATROPIUM BROMIDE NEB SOLN 0.02% 2.5 ML VIAL INH SCH ×4 (01:21→20:01)
[2021-03-11] MEDS: LEVALBUTEROL 1.25MG/0.5ML NEB INH SCH ×4 (01:21→20:01)
[2021-03-11] MEDS: CEFEPIME 2,000 MG in SYRINGE 0 ML IV SCH ×3 (05:26→22:31)
[2021-03-11] MEDS: DOXYCYCLINE HYCLATE 100 MG CAP PO SCH ×2 (05:26→18:36)
[2021-03-11 07:23] LABS: BUN Creatinine Ratio 28.4 (10-20); Calcium 8.1 mg/dl (8.5-10.1); Creatinine Clr Calc Pharmacy 89.1 ml/min; Est GFR (African American) 104.4 ml/min; Magnesium 2.3 mg/dl (1.8-2.4); Potassium 4.3 mmol/L (3.5-5.1)
[2021-03-11] MEDS: METOPROLOL SUCC 50MG EXT REL TAB PO SCH (08:07)
[2021-03-11] MEDS: lisinopril 10 MG TAB PO SCH (08:07)
[2021-03-11] MEDS: ATORVASTATIN 20 MG TAB PO SCH (08:07)
[2021-03-11] MEDS: amLODIPine BESYLATE 5 MG TAB PO SCH (08:07)
[2021-03-11] MEDS: SPIRONOLACTONE 12.5 MG TAB PO SCH (08:07)
[2021-03-11] MEDS: FUROSEMIDE 40 MG in SYRINGE 0 ML IV SCH (08:07)
--- NOTE | 2021-03-11 11:02 | Cardiology Progress Note ---
Date of Service March 11, 2021 Assessment & Plan (1) Acute HFrEF (heart failure with reduced ejection fraction): Continue IV diuresis, Lasix 40 mg daily. Follow daily weight, fluid balance, GFR, and electrolytes. Continue beta-hasmukh and REID inhibitor as previously ordered. (2) Left bundle branch block: Chronic finding. Mild left ventricular systolic dysfunction per echocardiogram. (3) Elevated troponin I level: Secondary to acute respiratory insufficiency in the setting of heart failure with reduced ejection fraction. With decline in LV function and acute exacerbation of CHF, further ischemic evaluation is warranted. Risk versus benefit of cardiac catheterization discussed at length. Tentative plan to proceed with diagnostic coronary angiography with left heart catheterization on 03/13/2021. Admission and Anticipated Discharge Date Admission Date: March 09, 2021 Subjective Patient seen and examined at the bedside. Chest x-ray markedly improved this a.m. Respiratory status is nearly returned to baseline. Renal function remained stable. Denies chest pain or shortness of breath. Telemetry reveals sinus rhythm with a left bundle branch block and premature atrial complexes in a pattern of atrial bigeminy. She reports gradually progressive symptoms over the past 3 weeks. Generally she is an active person and walks regularly for exercise. Denies personal history of coronary disease, diabetes, peripheral vascular disease, or rheumatic fever as a child. Review of Systems Review of Systems: All systems reviewed & are unremarkable except as noted in Subjective Physical Exam Constitutional: well developed and well nourished; no acute distress and not ill appearing Respiratory: normal respiratory effort; no respiratory distress and no labored breathing Auscultation: no diminished lung sounds, no crackles, no rales, no rhonchi and no wheezes Cardiovascular: Rate/Rhythm: regular rate and regular rhythm Heart Sounds: normal S1 and normal S2; no murmur Vessels: no JVD Extremities: no edema Gastrointestinal (Abdomen): Inspection/Auscultation: abdomen normal to inspection, + abdomen distended and normal bowel sounds Percussion/Palpation: abdomen soft; abdomen nontender, no guarding and abdomen not rigid Neurologic: CN's II-XI intact bilaterally and moves all extremities; no focal motor deficits Motor/Sensory: no tremor Psychiatric: A+Ox3, euthymic affect Results & Data ([facility]) Vital Signs (Past 12 Hours) Vital Signs Temp Pulse Pulse Resp BP BP Pulse Ox 03/11/21 07:35 36.5 C 80 20 129/80 90 03/11/21 07:14 95 H 18 95 03/11/21 03:58 36.4 C L 80 18 132/66 95 03/10/21 23:54 81 03/10/21 23:26 37.1 C 95 H 18 133/70 95
--- NOTE | 2021-03-11 11:59 | XRay Report ---
XR chest 1V portable CLINICAL HISTORY: Pneumonia COMPARISON STUDY: Chest radiograph and chest CT March 09, 2021. FINDINGS: There is no pneumothorax. There are small bilateral pleural effusions. Interstitial thicken ing and bibasilar opacities have markedly improved. Cardiomegaly is unchanged. IMPRESSION: 1. Marked improvement in interstitial thickening and bibasilar opacities suggestive of improving pulm onary edema. 2. Small bilateral pleural effusions. ACT 112: Negative or not required by law. Electronically signed by: Kishor Levine M.D. 03/11/2021 11:58 AM
[2021-03-11] MEDS ORDERED: METOPROLOL TARTRATE 50 MG TAB PO ONE (13:00)
[2021-03-11] MEDS ORDERED: Heparin IV Adult Wt-Based Standard *NO* Bolus Protocol IV SCH (13:15)
--- NOTE | 2021-03-11 15:07 | Hospitalist Progress Note ---
Date of Service March 11, 2021 Assessment & Plan (1) Severe sepsis: Acute respiratory failure with hypoxia Severe sepsis Atypical Pneumonia Pulmonary edema -CTA:No evidence for pulmonary embolus with limitations as described above. Above findings likely represent moderate asymmetric pulmonary edema. A superimposed pneumonia could also have a similar appearance. Small bilateral pleural fusions. There are 2 subcentimeter nodules within the right lung with the largest in the right upper lobe measuring 8 mm. [address] follow-up recommended to ensure resolution once the patient's pulmonary abnormalities have resolved. -Lactate levels normalized with IV fluids Elevated procalcitonin Blood cultures: No growth to date Continue cefepime, doxycycline Day #3 Continue nebs Saturating low 90s on room Transition to p.o. antibiotics tomorrow Afib RVR Check TSH Continue Metoprolol Started on IV heparin (Discussed with Neurologist chief communications officer given H/O SAH--OK with IV Heparin) Patient agrees with plan as well Monitor electrolytes Will Consider Cardizem if heart rate remains uncontrolled Pulmonary nodules Incidental finding on CT Needs repeat chest CT in 3 months Acute on chronic systolic heart failure-POA Chronic LBBB Mild Troponin elevation--Likely Type II MD -ECHO: Mild concentric LVH. Septal motion consistent with conduction abnormality. Left ventricular wall motion is normal. Left ventricle systolic function is mildly reduced. EF 45 to 50%. Mild MR. Mild to moderate TR. Mild pulmonary hypertension is present. 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 DVT Px: IV Heparin Code Status Full code Admission and Anticipated Discharge Date Admission Date: March 09, 2021 Subjective Patient is seen and examined at bedside States having minimal cough Went into A. fib RVR this morning Discussed with cardiology today Denies chest pain, dyspnea, dizziness, nausea, abdominal pain started on IV Heparin Review of Systems Review of Systems: All systems reviewed & are unremarkable except as noted in HPI & below Physical Exam Physical Exam: Physical Exam: Vitals signs as noted above General Appearance:Moderately built and nourished, no apparent distress Head: normocephalic, Atraumatic Eyes: normal inspection, EOMI Neck: supple, Trachea midline Respiratory/Chest: Decreased breath sounds, CTA Cardiovascular: Irregularly irregular, tachycardia, No murmur Abdomen/GI:Soft, Non tender, Bowel sounds present Extremities/Musculoskeletal:normal inspection, Trace edema Neurologic/Psych:AAOX3, grossly no focal neurological deficits Skin: normal color, warm Results & Data Results & Data ([facility]) Vital Signs (Past 12 Hours) Vital Signs Temp Pulse Resp BP BP Pulse Ox 03/11/21 14:28 118 H 03/11/21 13:05 116 H 16 93 03/11/21 12:05 135 H 20 125/77 94 03/11/21 10:52 36.7 C 77 19 116/73 92 03/11/21 07:35 36.5 C 80 20 129/80 90 03/11/21 07:14 95 H 18 95 03/11/21 03:58 36.4 C L 80 18 132/66 95 Laboratory Results [facility] 03/11/21 06:04 Sodium 138 Potassium 4.3 D Chloride 107 Carbon Dioxide 25 BUN 16 Creatinine 0.57 L Glucose 98 Calcium 8.1 L
[2021-03-11] MEDS: HEPARIN SODIUM/DEXTROSE 25,000 UNITS/500 ML BAG IV SCH (15:17)
[2021-03-11 15:20] LABS: Partial Thromboplastin Ratio 0.9; Partial Thromboplastin Time 24.9 Seconds (21.0-31.0)
[2021-03-11] MEDS ORDERED: STAT IV Infusion **Titration per Protocol STA (16:00)
[2021-03-11] MEDS: dilTIAZem HCL 125 MG in DEXTROSE 5% 100 ML IV SCH (16:40)
[2021-03-11 21:56] LABS: Partial Thromboplastin Ratio 1.1
[2021-03-11] MEDS ORDERED: HEPARIN SOD (PORCINE) 1000 UNIT/ML IV ONE (22:45)
[2021-03-12] MEDS: LEVALBUTEROL 1.25MG/0.5ML NEB INH SCH ×2 (01:00→07:34)
[2021-03-12] MEDS: IPRATROPIUM BROMIDE NEB SOLN 0.02% 2.5 ML VIAL INH SCH ×2 (01:00→07:34)
[2021-03-12] MEDS: dilTIAZem HCL 125 MG in DEXTROSE 5% 100 ML IV SCH ×2 (01:35→05:30)
[2021-03-12] MEDS: DOXYCYCLINE HYCLATE 100 MG CAP PO SCH ×2 (05:30→18:06)
[2021-03-12 05:34] LABS: Hematocrit (blood only) 37.2 % (37-47); Hemoglobin 12.5 g/dL (12.0-16.0); Mean Corpuscular Hemoglobin 25.9 pg (25-34); Mean Corpuscular Hgb Conc 33.6 g/dL (32-36); Mean Platelet Volume 9.4 fL (7.4-10.4); Platelet Count 274 K/uL (130-400); RDW Standard Deviation 42.5 fL (36.4-46.3); Red Blood Count 4.83 M/uL (4.2-5.4)
[2021-03-12 05:52] LABS: BUN Creatinine Ratio 21.1 (10-20); Calcium 8.3 mg/dl (8.5-10.1); Creatinine Clr Calc Pharmacy 90.7 ml/min; Est GFR (Non-African American) 90.6 ml/min; Magnesium 2.3 mg/dl (1.8-2.4); Potassium 3.9 mmol/L (3.5-5.1)
[2021-03-12 05:56] LABS: Partial Thromboplastin Ratio 1.9
[2021-03-12 05:57] LABS: Partial Thromboplastin Time 50.7 Seconds (21.0-31.0)
[2021-03-12 06:02] LABS: Thyroid Stimulating Hormone 4.62 uIu/ml (0.300-4.500)
[2021-03-12 06:15] LABS: T4 Free Thyroxine 1.39 ng/dl (0.8-1.6)
[2021-03-12] MEDS ORDERED: LEVALBUTEROL 1.25MG/0.5ML NEB INH PRN (08:09)
[2021-03-12] MEDS ORDERED: IPRATROPIUM BROMIDE NEB SOLN 0.02% 2.5 ML VIAL INH PRN (08:09)
[2021-03-12] MEDS: HEPARIN SODIUM/DEXTROSE 25,000 UNITS/500 ML BAG IV SCH (08:36)
[2021-03-12] MEDS: FUROSEMIDE 40 MG in SYRINGE 0 ML IV SCH (08:37)
[2021-03-12] MEDS: CEFEPIME 2,000 MG in SYRINGE 0 ML IV SCH (08:37)
[2021-03-12] MEDS: amLODIPine BESYLATE 5 MG TAB PO SCH (08:37)
[2021-03-12] MEDS: SPIRONOLACTONE 12.5 MG TAB PO SCH (08:37)
[2021-03-12] MEDS: ATORVASTATIN 20 MG TAB PO SCH (08:37)
[2021-03-12] MEDS: METOPROLOL SUCC 50MG EXT REL TAB PO SCH (08:38)
[2021-03-12] MEDS: lisinopril 10 MG TAB PO SCH (08:38)
[2021-03-12] MEDS ORDERED: 0.2 MICRON FILTER SET 1 EA IV ONE (09:51)
[2021-03-12] MEDS ORDERED: STAT IV Infusion **Titration per Protocol STA (09:51)
[2021-03-12] MEDS ORDERED: AMIODARONE / D5W 150 MG/100 ML BAG IV STA (09:51)
[2021-03-12] MEDS ORDERED: AMIODARONE IV BOLUS & DRIP IV STA (09:51)
[2021-03-12] MEDS ORDERED: AMIODARONE / D5W 360 MG/200 ML BAG IV ONE (10:00)
--- NOTE | 2021-03-12 10:07 | Cardiology Progress Note ---
Date of Service March 12, 2021 Assessment & Plan (1) Paroxysmal atrial fibrillation with RVR: Patient remains in atrial fibrillation with borderline rate control overnight. Recommend discontinuation of intravenous Cardizem infusion. Initiate IV amiodarone and attempt to restore sinus rhythm in setting of acute decompensated heart failure and mild LV systolic dysfunction. Continue intravenous anticoagulation with heparin. If rate/rhythm stabilizes overnight, proceed with diagnostic catheterization and a.m. with coronary angiography. (2) Acute HFrEF (heart failure with reduced ejection fraction): Continue IV diuresis, Lasix 40 mg daily. Follow daily weight, fluid balance, GFR, and electrolytes. Continue beta-hasmukh and REID inhibitor as previously ordered. (3) Left bundle branch block: Chronic finding. Mild left ventricular systolic dysfunction per echocardiogram. (4) Elevated troponin I level: Secondary to acute respiratory insufficiency in the setting of heart failure with reduced ejection fraction. No low-dose rapid atrial fibrillation also likely contributing factor. With decline in LV function and acute exacerbation of CHF, further ischemic evaluation is warranted. Risk versus benefit of cardiac catheterization discussed at length. Tentative plan to proceed with diagnostic coronary angiography with left heart catheterization on 03/13/2021 if heart rate/rhythm stabilized. N.p.o. except medications after midnight. Admission and Anticipated Discharge Date Admission Date: March 09, 2021 Subjective Patient seen and examined at the bedside. Converted to atrial fibrillation with rapid ventricular response yesterday. Treated with intravenous Cardizem infusion with mild improvement of heart rate. Heart rate averaging 90s-110 bpm. Left bundle branch block with occasional PVCs recorded. Patient essentially asymptomatic. Unaware of her elevated heart rate. Denies chest discomfort or heaviness. No orthopnea, PND, or edema. Denies lightheadedness, dizziness, syncope, or near syncope. Review of Systems Review of Systems: All systems reviewed & are unremarkable except as noted in Subjective Physical Exam Constitutional: well developed and well nourished; no acute distress and not ill appearing Respiratory: normal respiratory effort; no respiratory distress and no labored breathing Auscultation: no diminished lung sounds, no crackles, no rales, no rhonchi and no wheezes Cardiovascular: Rate/Rhythm: + tachycardic and + irregularly irregular Heart Sounds: normal S1 and normal S2; no murmur Vessels: no JVD Extremities: no edema Gastrointestinal (Abdomen): Inspection/Auscultation: abdomen normal to inspection, + abdomen distended and normal bowel sounds Percussion/Palpation: abdomen soft; abdomen nontender, no guarding and abdomen not rigid Neurologic: CN's II-XI intact bilaterally and moves all extremities; no focal motor deficits Motor/Sensory: no tremor Psychiatric: A+Ox3, euthymic affect Results & Data ([facility]) Vital Signs (Past 12 Hours) Vital Signs Temp Pulse Resp BP Pulse Ox 03/12/21 07:35 78 16 94 03/12/21 07:29 36.5 C 78 18 130/76 95 03/12/21 04:00 36.5 C 112 H 18 132/70 94 03/12/21 01:00 88 16 90 03/12/21 00:37 36.8 C 132 H 18 119/77 90
--- NOTE | 2021-03-12 13:02 | Electrocardiogram Report ---
Test Reason : Blood Pressure : / mmHG Vent. Rate : 123 BPM Atrial Rate : 123 BPM P-R Int : 182 ms QRS Dur : 144 ms QT Int : 318 ms P-R-T Axes : 024 -68 068 degrees QTc Int : 455 ms Likely atrial fibrillation Left axis deviation Non-specific intra-ventricular conduction block Possible Lateral infarct , age undetermined Abnormal ECG When compared with ECG of 09-MAR-2021 04:21, Premature supraventricular complexes are now Present QRS axis Shifted left Nonspecific T wave abnormality no longer evident in Inferior leads Confirmed by Jasiel Cochran ([id number]) on 03/12/2021 1:02:02 PM Referred By: REFERRED SELF Confirmed By:Justin Cochran
--- NOTE | 2021-03-12 13:02 | Electrocardiogram Report ---
Test Reason : Blood Pressure : / mmHG Vent. Rate : 130 BPM Atrial Rate : 130 BPM P-R Int : 000 ms QRS Dur : 140 ms QT Int : 372 ms P-R-T Axes : 000 -71 061 degrees QTc Int : 547 ms Atrial fibrillation with rapid ventricular response with premature ventricular or aberrantly conducte d complexes Left axis deviation Non-specific intra-ventricular conduction block Possible Lateral infarct (cited on or before 11-MAR-2021) Abnormal ECG When compared with ECG of 11-MAR-2021 12:06, (unconfirmed) Atrial fibrillation has replaced Sinus rhythm Confirmed by Jasiel Cochran ([id number]) on 03/12/2021 1:02:10 PM Referred By: REFERRED SELF Confirmed By:Justin Cochran
--- NOTE | 2021-03-12 13:09 | Electrocardiogram Report ---
Test Reason : Blood Pressure : / mmHG Vent. Rate : 122 BPM Atrial Rate : 129 BPM P-R Int : 000 ms QRS Dur : 144 ms QT Int : 364 ms P-R-T Axes : 000 -60 071 degrees QTc Int : 518 ms Atrial fibrillation with rapid ventricular response with premature ventricular or aberrantly conducte d complexes Left axis deviation Left bundle branch block Abnormal ECG When compared with ECG of 11-MAR-2021 13:00, (unconfirmed) No significant change was found Confirmed by Jasiel Cochran ([id number] on 03/12/2021 1:08:51 PM Referred By: REFERRED SELF Confirmed By:Justin Cochran
--- NOTE | 2021-03-12 16:40 | Hospitalist Progress Note ---
Date of Service March 12, 2021 Assessment & Plan (1) Severe sepsis: Acute respiratory failure with hypoxia Severe sepsis Atypical Pneumonia Pulmonary edema -CTA:No evidence for pulmonary embolus with limitations as described above. Above findings likely represent moderate asymmetric pulmonary edema. A superimposed pneumonia could also have a similar appearance. Small bilateral pleural fusions. There are 2 subcentimeter nodules within the right lung with the largest in the right upper lobe measuring 8 mm[address] follow-up recommended to ensure resolution once the patient's pulmonary abnormalities have resolved. -Lactate levels normalized with IV fluids Elevated procalcitonin Blood cultures: No growth to date Continue cefepime, doxycycline Day #3>>Cefuroxime, Doxy Continue nebs Saturating well on room air Recheck Procalcitonin in AM Afib RVR H/O SVT/VTs Chronic LBBB TSH near normal Free T4: Normal Continue Metoprolol Continue IV heparin IV Cardizem transitioned to IV Amiodarone Cardiology on board Cardiac Cath in AM Pulmonary nodules Incidental finding on CT Needs repeat chest CT in 3 months Acute on chronic systolic heart failure-POA Chronic LBBB Mild Troponin elevation--Likely Type II ND -ECHO: Mild concentric LVH. Septal motion consistent with conduction abnormality. Left ventricular wall motion is normal. Left ventricle systolic function is mildly reduced. EF 45 to 50%. Mild MR. Mild to moderate TR. Mild pulmonary hypertension is present. 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 DVT Px: IV Heparin Code Status Full code Admission and Anticipated Discharge Date Admission Date: March 09, 2021 Subjective Patient is seen and examined at bedside Remains in A. fib Asymptomatic during Offers no new complaints Plan for cardiac catheterization tomorrow Denies chest pain, dyspnea, dizziness, nausea, abdominal pain No bleeding issues while on IV Heparin Review of Systems Review of Systems: All systems reviewed & are unremarkable except as noted in HPI & below Physical Exam Physical Exam: Physical Exam: Vitals signs as noted above General Appearance:Moderately built and nourished, no apparent distress Head: normocephalic, Atraumatic Eyes: normal inspection, EOMI Neck: supple, Trachea midline Respiratory/Chest: Decreased breath sounds, CTA Cardiovascular: Irregularly irregular, tachycardia, No murmur Abdomen/GI:Soft, Non tender, Bowel sounds present Extremities/Musculoskeletal:normal inspection, Trace edema Neurologic/Psych:AAOX3, grossly no focal neurological deficits Skin: normal color, warm Results & Data Results & Data ([facility]) Vital Signs (Past 12 Hours) Vital Signs Temp Pulse Pulse Resp BP Pulse Ox 03/12/21 15:38 36.5 C 65 20 115/67 97 03/12/21 11:05 36.5 C 66 20 128/68 97 03/12/21 08:30 99 H 03/12/21 07:35 78 16 94 03/12/21 07:29 36.5 C 78 18 130/76 95 Laboratory Results Short CBC 03/12/21 Range/Units 05:23 WBC 5.00 (4.8-10.8) K/uL Hgb 12.5 (12.0-16.0) g/dL Hct 37.2 (37-47) % Plt Count 274 (130-400) K/uL BMP 03/12/21 05:23 Sodium 140 Potassium 3.9 Chloride 109 H Carbon Dioxide 25 BUN 12 Creatinine 0.56 L Glucose 122 H Calcium 8.3 L
[2021-03-12] MEDS: AMIODARONE / D5W 360 MG/200 ML BAG IV SCH (17:06)
[2021-03-12] MEDS: cefUROXime axetil 500 MG TAB PO SCH (20:00)
[2021-03-12] MEDS: FAMOTIDINE 10 MG TABLET PO SCH (20:00)
[2021-03-13] MEDS: HEPARIN SODIUM/DEXTROSE 25,000 UNITS/500 ML BAG IV SCH (01:12)
[2021-03-13] MEDS: AMIODARONE / D5W 360 MG/200 ML BAG IV SCH ×2 (04:17→17:21)
[2021-03-13] MEDS: DOXYCYCLINE HYCLATE 100 MG CAP PO SCH ×2 (06:14→18:10)
[2021-03-13 07:05] LABS: Hematocrit (blood only) 37.5 % (37-47); Hemoglobin 12.5 g/dL (12.0-16.0); Mean Corpuscular Hemoglobin 25.7 pg (25-34); Mean Corpuscular Hgb Conc 33.3 g/dL (32-36); Mean Platelet Volume 9.8 fL (7.4-10.4); Platelet Count 306 K/uL (130-400); RDW Standard Deviation 42.4 fL (36.4-46.3); Red Blood Count 4.87 M/uL (4.2-5.4); White Blood Count 5.14 K/uL (4.8-10.8)
[2021-03-13 07:28] LABS: Partial Thromboplastin Ratio 1.6; Partial Thromboplastin Time 42.4 Seconds (21.0-31.0)
[2021-03-13] MEDS: lisinopril 10 MG TAB PO SCH (07:37)
[2021-03-13] MEDS: SPIRONOLACTONE 12.5 MG TAB PO SCH (07:37)
[2021-03-13] MEDS: amLODIPine BESYLATE 5 MG TAB PO SCH (07:37)
[2021-03-13] MEDS: FAMOTIDINE 10 MG TABLET PO SCH ×2 (07:38→20:29)
[2021-03-13] MEDS: ATORVASTATIN 20 MG TAB PO SCH (07:38)
[2021-03-13] MEDS: FUROSEMIDE 40 MG in SYRINGE 0 ML IV SCH (07:38)
[2021-03-13] MEDS: METOPROLOL SUCC 50MG EXT REL TAB PO SCH (07:38)
[2021-03-13] MEDS: cefUROXime axetil 500 MG TAB PO SCH ×2 (07:38→20:30)
[2021-03-13 07:39] LABS: BUN Creatinine Ratio 21.5 (10-20); Calcium 8.7 mg/dl (8.5-10.1); Creatinine Clr Calc Pharmacy 60.9 ml/min; Est GFR (African American) 79.4 ml/min; Est GFR (Non-African American) 68.5 ml/min; Magnesium 2.1 mg/dl (1.8-2.4); Potassium 3.4 mmol/L (3.5-5.1)
[2021-03-13] MEDS ORDERED: POTASSIUM CHLORIDE CRTAB 20 MEQ TABCR PO ONE (08:35)
--- NOTE | 2021-03-13 10:46 | Cardiology Progress Note ---
Date of Service March 13, 2021 Assessment & Plan (1) Paroxysmal atrial fibrillation with RVR: Patient spontaneously converted to sinus rhythm overnight. Feels comfortable this morning on IV heparin and IV amiodarone. (2) Acute HFrEF (heart failure with reduced ejection fraction): Patient tentatively planned for coronary angiography later today assess because of newly observed heart failure and cardiomyopathy. (3) Left bundle branch block: Chronic finding. QT mildly prolonged this morning we will continue for (4) Elevated troponin I level: Secondary to acute respiratory insufficiency in the setting of heart failure with reduced ejection fraction. No low-dose rapid atrial fibrillation also likely contributing factor. With decline in LV function and acute exacerbation of CHF, further ischemic evaluation is warranted. Risk versus benefit of cardiac catheterization discussed at length. Tentative plan to proceed with diagnostic coronary angiography with left heart catheterization on 03/13/2021 if heart rate/rhythm stabilized. N.p.o. except medications after midnight. Procedure and risks explained in detail with the patient informed consent to be obtained. No cardiac contraindications to proceeding Admission and Anticipated Discharge Date Admission Date: March 09, 2021 Subjective Patient was seen and examined, chart, medications, telemetry reviewed. Patient overall feels improved this morning dyspnea has improved. No chest pains or discomfort. No edema. Patient spontaneously converted to sinus rhythm approximately 430 this morning. Review of Systems Review of Systems: All systems reviewed & are unremarkable except as noted in HPI & below Physical Exam Constitutional: WD/WN, vitals as above Eyes: PERRL, conjunctivae normal, anicteric sclerae ENMT: external ear and nose normal, oropharynx normal Neck: trachea midline, no thyromegaly Respiratory: normal respiratory effort, lungs clear to auscultation Cardiovascular: Rate/Rhythm: regular rate and regular rhythm Heart Sounds: normal S1 and normal S2; no gallop and no murmur Palpation: normal PMI Vessels: normal carotid upstroke and radial pulses present; no JVD and no carotid bruit Extremities: no edema Gastrointestinal (Abdomen): normal bowel sounds, soft, nontender, no hepatosplenomegaly Musculoskeletal: no cyanosis or clubbing, extremities motor strength 5/5 Skin: no rashes, warm and dry Neurologic: PERRL, EOMI, accommodation nl, no face palsy, no dysarthria Motor/Sensory: + tremor Psychiatric: A+Ox3, euthymic affect Results & Data ([facility]) Vital Signs (Past 12 Hours) Vital Signs Temp Pulse Pulse Resp BP Pulse Ox 03/13/21 07:30 87 03/13/21 07:14 36.9 C 86 18 138/80 92 03/13/21 03:43 36.6 C 136 H 18 126/73 96 03/13/21 00:00 36.5 C 124 H 18 104/71 94 Laboratory Results Laboratory Results - last 24 hr 03/13/21 03/13/21 03/13/21 06:39 06:39 06:39 WBC 5.14 RBC 4.87 Hgb 12.5 Hct 37.5 MCV 77.0 L MCH 25.7 MCHC 33.3 RDW Std Deviation 42.4 RDW Coeff of [place] 15.0 H Plt Count 306 MPV 9.8 APTT PTT Ratio Sodium 140 Potassium 3.4 L Chloride 107 Carbon Dioxide 25 Anion Gap 8.0 BUN 18 Creatinine 0.83 Est Cr Clr Drug Dosing 60.9 Est GFR ( Amer) 79.4 Est GFR (Non-Af Amer) 68.5 BUN/Creatinine Ratio 21.5 H Glucose 126 H Calcium 8.7 Magnesium 2.1 Procalcitonin 0.25 03/13/21 06:39 WBC RBC Hgb Hct MCV MCH MCHC RDW Std Deviation RDW Coeff of [place] Plt Count MPV APTT 42.4 H PTT Ratio 1.6 Sodium Potassium Chloride Carbon Dioxide Anion Gap BUN Creatinine Est Cr Clr Drug Dosing Est GFR ( Amer) Est GFR (Non-Af Amer) BUN/Creatinine Ratio Glucose Calcium Magnesium Procalcitonin
[2021-03-13] MEDS ORDERED: HEPARIN (PORCINE) 1000 UNIT/ML 10 ML (CATH LAB USE ONLY) ONE (12:26)
[2021-03-13] MEDS ORDERED: niCARdipine HCL INJ 2.5 MG/ML 10 ML AMP ONE (12:26)
[2021-03-13] MEDS ORDERED: fentaNYL citrate 100 MCG/2 ML VIAL ONE (12:27)
[2021-03-13] MEDS ORDERED: MIDAZOLAM HCL 1 MG/ML 2ML VIAL ONE (12:27)
[2021-03-13] MEDS ORDERED: NITROGLYCERIN/D5W 100MCG/ML 20ML SYR ONE (12:28)
[2021-03-13] MEDS ORDERED: Nursing to Pharmacy Communication SCH (13:00)
--- NOTE | 2021-03-13 13:18 | Pre Anesthesia Assessment ---
Date of Service March 13, 2021 Pre Sedation Assessment Vital Signs Temp Pulse Pulse Resp BP Pulse Ox Pulse Ox 03/13/21 12:49 89 17 03/13/21 11:00 36.4 C L 74 18 113/74 95 03/13/21 07:30 87 03/13/21 07:14 36.9 C 86 18 138/80 92 03/13/21 03:43 36.6 C 136 H 18 126/73 96 03/13/21 00:00 36.5 C 124 H 18 104/71 94 03/12/21 20:00 93 03/12/21 19:23 36.6 C 105 H 18 118/71 93 03/12/21 18:12 96 H 03/12/21 15:38 36.5 C 65 20 115/67 97 Cardiovascular RRR, no murmur, no edema Respiratory normal respiratory effort, lungs clear to auscultation Pre-Sedation Airway Assessment Smoking Status: Former smoker Hx Difficult Intubation: No Short, Thick Neck: No Thyromental Distance: > or= 3.5 Finger Breadths Oral Cavity: + WNL Mallampati Class: III ASA: ASA3 NPO Status Date of Last Intake of Fluids: 03/13/21 Time of Last Intake of Fluids: 08:00 Date of Last Intake of Solid Food: 03/12/21 Procedure Planning Contraindications for Sedation: none Current Medications Reviewed: Yes Notes The planned sedation has been discussed with the patient. Informed Consent was obtained. I have identified the patient, determined the appropriateness of sedation and have assessed the patient immediately prior to the procedure. All medicine(s) and interventions are by my order.
--- NOTE | 2021-03-13 14:09 | Cardiac Catheterization ---
Cardiac Cath Procedure Brief Procedure Date March 13, 2021 Pre-Procedure Diagnosis Pre-Procedure Diagnosis: CHF and Cardiomyopathy AUC Score AUC Score: 8 Post-Procedure Diagnosis Post-Procedure Diagnosis: Moderate CAD Procedure(s) Performed Procedure(s) Performed: Coronary Angiography, Left Heart Cath and LV Angiography Ring Attacher Oswaldo Youngblood MD Machine Ii Trimmer(s) Glenn Sarkar Estimated Blood Loss Estimated Blood Loss: <15cc Medication(s) Medication(s): Fentanyl (12.5 mcg IV), Heparin (2500 units IV), Lidocaine 1% (Local infiltration access site), Nicardipine (250 mcg intra-arterial after arterial sheath insertion) and Versed (1 mg IV) Preliminary Findings Impression: Right dominant coronary anatomy Calcified very proximal stenosis left anterior descending, moderate severity, nonobstructive by FFR Moderate diffuse left ventricular dysfunction EF 40% with trace mitral insufficiency Elevated left end-diastolic pressure, 20 mmHg Coronary angiography: Left main: Normal length and caliber trifurcating to give rise to a small ramus intermedius the left anterior descending and the left circumflex there is no disease in the left main Left anterior descending: Type II in distribution. Gives rise to a small diagonal and a very large bifurcating diagonal parallel to the left anterior descending to the apex. The proximal left understanding has heavy calcification and an eccentric narrowing near its origin Ramus intermedius: Modest caliber vessel Left circumflex large caliber but nondominant vessel. It gives rise to an atrial branch shortly after its origin, a small marginal and a large long obtuse marginal before continuing along the AV groove as a single vessel. Right coronary artery: Large in caliber with moderate ectasia. Gives rise to a large right ventricular branch in its midportion along posterior descending artery and along the AV groove two posterior ventricular branches. There is no obstructive disease Recommendations Recommendations: Management Recommendatons (Patient will be referred for assessment of the proximal LAD via FFR) Specimens Specimens: None Fluids (cc crystalloids) Fluids (cc crystalloids): 70 Anesthesia Start time: 1332 Stop time: 1418 Procedural Complication(s) None Disposition PCU
[2021-03-13] MEDS ORDERED: ADENOSINE IV SOLN 3 MG/ML 20 ML VIAL IV ONE (14:18)
--- NOTE | 2021-03-13 14:46 | Electrocardiogram Report ---
Test Reason : Blood Pressure : / mmHG Vent. Rate : 088 BPM Atrial Rate : 088 BPM P-R Int : 168 ms QRS Dur : 160 ms QT Int : 428 ms P-R-T Axes : 024 -50 052 degrees QTc Int : 517 ms Normal sinus rhythm Possible Left atrial enlargement Left axis deviation Left bundle branch block Abnormal ECG When compared with ECG of 12-MAR-2021 08:26, Sinus rhythm has replaced Atrial fibrillation Confirmed by Brian Medley ([id number]) on 03/13/2021 2:45:45 PM Referred By: REFERRED SELF Confirmed By:Brian Medley
--- NOTE | 2021-03-13 14:47 | Cardiac Catheterization ---
Cardiac Cath Procedure Full Procedure Date March 13, 2021 Pre-Procedure Diagnosis Pre-Procedure Diagnosis: CHF and Cardiomyopathy AUC Score AUC Score: 8 Post-Procedure Diagnosis Post-Procedure Diagnosis: Moderate CAD Procedure(s) Performed Procedure(s) Performed: Coronary Angiography, Left Heart Cath and LV Angiography Moisture Meter Reader Oswaldo Youngblood MD Communication And Outreach Manager(s) Glenn Sarkar Estimated Blood Loss Estimated Blood Loss: <15cc Medication(s) Medication(s): Fentanyl (12.5 mcg IV), Heparin (2500 units IV), Lidocaine 1% (Local infiltration access site), Nicardipine (250 mcg intra-arterial after arterial sheath insertion) and Versed (1 mg IV) Summary of Findings Impression: Right dominant coronary anatomy Calcified very proximal stenosis left anterior descending, moderate severity, nonobstructive by FFR Moderate diffuse left ventricular dysfunction EF 40% with trace mitral insufficiency Elevated left end-diastolic pressure, 20 mmHg Coronary angiography: Left main: Normal length and caliber trifurcating to give rise to a small ramus intermedius the left anterior descending and the left circumflex there is no disease in the left main Left anterior descending: Type II in distribution. Gives rise to a small diagonal and a very large bifurcating diagonal parallel to the left anterior descending to the apex. The proximal left understanding has heavy calcification and an eccentric narrowing near its origin Ramus intermedius: Modest caliber vessel Left circumflex large caliber but nondominant vessel. It gives rise to an atrial branch shortly after its origin, a small marginal and a large long obtuse marginal before continuing along the AV groove as a single vessel. Right coronary artery: Large in caliber with moderate ectasia in its proximal and midportion. It gives rise to a large right ventricular branch in its midportion, a long posterior descending artery and along the AV groove two posterior ventricular branches. There is no obstructive disease Hemodynamics Rest Ao:: 145/65/96 Final Ao: 144/64/90 LV: 142/2/20 Recommendations Recommendations: Management Recommendatons (Patient was referred and underwent FFR and found LAD nonobstructive. We will treat with medical therapy) Specimens Specimens: None Radiation Exposure (mGy) 578 Contrast (mls) 90 Fluids (cc crystalloids) Fluids (cc crystalloids): 70 Anesthesia Start time: 1332 Stop time: 1418 Procedural Complication(s) None Disposition PCU I attest to the content of the Intraoperative Record and any orders documented therein. Any exceptions are noted below. 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 Editor Cardiac Status Clinical evaluation leading to the procedure 75-year-old female presented with acute onset pulmonary edema with newly observed cardiomyopathy, paroxysmal atrial fibrillation CAD Presenation: No Sxs, No angina Anginal Classification: CCS III Heart Failure: NYHA Class: CCS III Cardiogenic Shock within 24 Hours: No Cardiac Arrest within 24 Hours: No Imaging Studies Past 6 Months: Yes Stress Studies Past 6 Months: No Standard Exercise Test: No Stress Echocardiogram: No Stress Testing w/SPECT MPI: No Cardiac CTA: No Coronary Anatomy Dominant: Right Left Main (% Stenosis): Normal LAD (% Stenosis): Proximal (Calcified eccentric 60) and Distal (Thin apical segment) D1 (% Stenosis): Normal D2 (% Stenosis): Normal (Large-caliber bifurcating vessel) OM1 (% Stenosis): Normal RCA (% Stenosis): Mid (Moderate ectasia) R PDA (% Stenosis): Normal R PL1 (% Stenosis): Normal R PL2 (% Stenosis): Normal Ramus (% Stenosis): Normal Diagnostic Physicians Name: Oswaldo Youngblood MD Closure Device Percutaneous Entry Location: Radial Closure Device: Radial Band Recommendations: Management Recommendatons (Patient was referred and underwent FFR and found LAD nonobstructive. We will treat with medical therapy)
--- NOTE | 2021-03-13 15:01 | Post Anesthesia Assessment ---
Date of Service March 13, 2021 Post Sedation Assessment Vital Signs Temp Pulse Pulse Resp BP Pulse Ox Pulse Ox 03/13/21 14:49 74 17 139/74 92 03/13/21 14:40 75 17 147/93 H 93 03/13/21 12:49 89 17 03/13/21 11:00 97.5 F L 74 18 113/74 95 03/13/21 07:30 87 03/13/21 07:14 98.4 F 86 18 138/80 92 03/13/21 03:43 97.9 F 136 H 18 126/73 96 03/13/21 00:00 97.7 F 124 H 18 104/71 94 03/12/21 20:00 93 03/12/21 19:23 97.9 F 105 H 18 118/71 93 03/12/21 18:12 96 H 03/12/21 15:38 97.7 F 65 20 115/67 97 Recovery Score Activity: Moves 4 extremities Respiration: Deep Breath/Cough Circulation: +/-20% PreAnes Value Consciousness: Fully Awake Oxygen Saturation: > 92% On Room Air Post Anesthesia Score: 10 Discharge Sedation Level of Care: Fast Track Phase II Post Sedation Plan On clinical assessment, the patient appears to have tolerated the sedation without complications. Patient is recovering as anticipated. Patient will continue to be monitored by nursing and may be discharged when sedation discharge criteria are met per below protocol. Upon Completions of procedure up to 15 minutes continue every 5 minute vital signs and the P.A.R. score; then discharge to a Phase I or Fast Track to Phase II per the following guidelines: * Discharge Patient to appropriate Phase II area if PAR is 8 or greater or return to pre- procedure baseline. The post - procedure orders will be as directed. * If PAR score is less than 8 or not return to pre-procedure baseline then patient will follow Phase I monitoring till PAR is reached for Phase II. The Phase I may be done in procedure room or may call to secure a Phase I area. * If naloxone or flumazenil are used for reversal, hold in Phase I for continued monitoring from when last reversal dose was given for a minimum of 60 minutes or longer pending the nurse and/or physician discretion of patient condition before discharge to Phase II. Please call the Sedation Physician to re-evaluate and complete post-note for discharge to Phase II area. Do NOT discharge from procedure sedation or Phase 1 until post- sedation evaluation note is complete by procedure /sedation MD Sedation Discharge Instructions to be given to the patient at discharge to home.
--- NOTE | 2021-03-13 15:08 | Cardiac Catheterization ---
[facility] Data: Veterinarian Assistant Cardiac Status Clinical evaluation leading to the procedure CAD Presenation: Sx unlikely to be ischemic Anginal Classification: No Symptoms Heart Failure: Yes Cardiogenic Shock within 24 Hours: No Cardiac Arrest within 24 Hours: No Imaging Studies Past 6 Months: Yes Stress Studies Past 6 Months: No Diagnostic Physicians Name: Jasiel Dave MD Status: Elective Closure Device Percutaneous Entry Location: Radial Closure Device: Radial Band Recommendations: Management Recommendatons (Patient will be referred for assessment of the proximal LAD via FFR) Intraprocedure Events Significant Disection: No Perforation: No Cardiac Cath Procedure Full Procedure Date March 13, 2021 Pre-Procedure Diagnosis Pre-Procedure Diagnosis: CHF and Cardiomyopathy AUC Score AUC Score: 7 Post-Procedure Diagnosis Post-Procedure Diagnosis: Moderate CAD Procedure(s) Performed Procedure(s) Performed: Coronary Angiography and Fractional Flow [employer] Mold Preparer Jasiel Dave MD Fire Equipment Operator(s) Glenn Sarkar Estimated Blood Loss Estimated Blood Loss: <15cc Medication(s) Medication(s): Fentanyl (12.5 mcg IV), Heparin (2500 units IV), Lidocaine 1% (Local infiltration access site), Nicardipine (250 mcg intra-arterial after arterial sheath insertion) and Versed (1 mg IV) Summary of Findings For full details of patient's coronary angiography please see cath report di ctated by Dr. Youngblood. Briefly, patient found to have a intermediate ostial LAD stenosis. Decision to proceed with FFR. Procedure: -Left main cannulated with EBU 3.5 guide -BMW wire placed into distal LAD -ACIST Catheter placed across stenosis -FFR 0.84 -Coronary angiography revealed no apparent complications post wire/catheter removal Summary: 1. Nonobstructive moderate ostial LAD stenosis (FFR 0.84). Recommendations: Continued GDMT and ASCVD risk factor modification per Dr. Youngblood. Hemodynamics Rest Ao:: 145/65/96 Final Ao: 145/64/96 LV: -- Recommendations Recommendations: Management Recommendatons (Patient will be referred for assessment of the proximal LAD via FFR) Specimens Specimens: None Radiation Exposure (mGy) 964 Contrast (mls) 125 Fluids (cc crystalloids) Fluids (cc crystalloids): 70 Drains Drains: none Anesthesia Start time: 1418 Stop time: 1432 Procedural Complication(s) None Disposition PCU I attest to the content of the Intraoperative Record and any orders documented therein. Any exceptions are noted below. [facility] Card Cath Procedure Codes Cardiac Catheterization Procedure 1: Cardiovascular Cath Procedures: 46486 (Doppler) Pressure Wire Moderate Sedation Procedure 1: Sedation/Anesthesia: 14157 Mod Sedation by the same physician; Ea [id number] Minutes PG Care Time/CCT Total # of Minutes Spent Total Time Spent with Patient: Total time spent is greater than 50% in coordination of care (as documented) at patient's floor/unit and/or counseling patient:
[2021-03-13 15:59] LABS: Partial Thromboplastin Ratio 4.4
[2021-03-13] MEDS ORDERED: [UNRECOGNIZED DRUG - REMARK] ONE (16:00)
[2021-03-13] MEDS ORDERED: WARFARIN SOD 5 MG TAB PO ONE (16:25)
--- NOTE | 2021-03-13 17:09 | Hospitalist Progress Note ---
Date of Service March 13, 2021 Assessment & Plan (1) Severe sepsis: Acute respiratory failure with hypoxia Severe sepsis Atypical Pneumonia Pulmonary edema -CTA:No evidence for pulmonary embolus with limitations as described above. Above findings likely represent moderate asymmetric pulmonary edema. A superimposed pneumonia could also have a similar appearance. Small bilateral pleural fusions. There are 2 subcentimeter nodules within the right lung with the largest in the right upper lobe measuring 8 mm[address] follow-up recommended to ensure resolution once the patient's pulmonary abnormalities have resolved. -Lactate levels normalized with IV fluids Elevated procalcitonin Blood cultures: No growth to date Continue cefepime, doxycycline Day #3>>Cefuroxime, Doxy Day #2 Continue nebs Saturating well on room air Procalcitonin trended down Afib RVR--spontaneously converted to sinus H/O SVT/VTs Chronic LBBB Mild Troponin elevation--Likely Type II NV S/P Cardiac Cath:Nonobstructive moderate ostial LAD stenosis TSH near normal Free T4: Normal Continue Metoprolol Continue IV heparin>> Transition to Eliquis IV Cardizem/IV Amiodarone discontinued Plan to start PO Amiodarone as able Appreciate Cardiology Input Pulmonary nodules Incidental finding on CT Needs repeat chest CT in 3 months Acute on chronic systolic heart failure-POA Chronic LBBB -ECHO: Mild concentric LVH. Septal motion consistent with conduction abnormality. Left ventricular wall motion is normal. Left ventricle systolic function is mildly reduced. EF 45 to 50%. Mild MR. Mild to moderate TR. Mild pulmonary hypertension is present. 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 DVT Px: Eliquis Code Status Full code Admission and Anticipated Discharge Date Admission Date: March 09, 2021 Subjective Patient is seen and examined at bedside No cough this morning Converted to sinus overnight Had cardiac catheterization earlier today Discussed with cardiology today Denies chest pain, dyspnea, dizziness, nausea, abdominal pain Review of Systems Review of Systems: All systems reviewed & are unremarkable except as noted in HPI & below Physical Exam Physical Exam: Physical Exam: Vitals signs as noted above General Appearance:Moderately built and nourished, no apparent distress Head: normocephalic, Atraumatic Eyes: normal inspection, EOMI Neck: supple, Trachea midline Respiratory/Chest: Decreased breath sounds, CTA Cardiovascular: S1-S2, No murmur Abdomen/GI:Soft, Non tender, Bowel sounds present Extremities/Musculoskeletal:normal inspection, Trace edema Neurologic/Psych:AAOX3, grossly no focal neurological deficits Skin: normal color, warm Results & Data Results & Data ([facility]) Vital Signs (Past 12 Hours) Vital Signs Temp Pulse Pulse Resp BP Pulse Ox 03/13/21 15:50 70 18 130/76 94 03/13/21 15:20 69 18 124/76 95 03/13/21 15:05 76 03/13/21 15:00 36.6 C 71 18 135/85 94 03/13/21 14:49 74 17 139/74 92 03/13/21 14:40 75 17 147/93 H 93 03/13/21 12:49 89 17 03/13/21 11:00 36.4 C L 74 18 113/74 95 03/13/21 07:30 87 03/13/21 07:14 36.9 C 86 18 138/80 92 Laboratory Results Short CBC 03/13/21 Range/Units 06:39 WBC 5.14 (4.8-10.8) K/uL Hgb 12.5 (12.0-16.0) g/dL Hct 37.5 (37-47) % Plt Count 306 (130-400) K/uL BMP 03/13/21 06:39 Sodium 140 Potassium 3.4 L Chloride 107 Carbon Dioxide 25 BUN 18 Creatinine 0.83 Glucose 126 H Calcium 8.7
[2021-03-13] MEDS: APIXABAN 5 MG TABLET PO SCH (18:31)
[2021-03-13] MEDS ORDERED: APIXABAN 2.5 MG TAB PO SCH (21:00)
[2021-03-14] MEDS: DOXYCYCLINE HYCLATE 100 MG CAP PO SCH (05:38)
[2021-03-14 06:52] LABS: Hematocrit (blood only) 36.3 % (37-47); Hemoglobin 12.1 g/dL (12.0-16.0); Mean Corpuscular Hemoglobin 26.1 pg (25-34); Mean Corpuscular Hgb Conc 33.3 g/dL (32-36); Mean Corpuscular Volume 78.4 fL (80-100); Mean Platelet Volume 9.5 fL (7.4-10.4); Platelet Count 288 K/uL (130-400); RDW Coefficient of Variation 15.2 % (11.5-14.5); RDW Standard Deviation 43.7 fL (36.4-46.3); Red Blood Count 4.63 M/uL (4.2-5.4); White Blood Count 4.79 K/uL (4.8-10.8)
[2021-03-14 06:58] LABS: INR 1.1 (0.9-1.1); Prothrombin Time 11.2 Seconds (9.0-12.0)
[2021-03-14 07:34] LABS: BUN Creatinine Ratio 23.9 (10-20); Calcium 8.5 mg/dl (8.5-10.1); Creatinine Clr Calc Pharmacy 83.9 ml/min; Est GFR (African American) 102.6 ml/min; Est GFR (Non-African American) 88.5 ml/min; Potassium 3.5 mmol/L (3.5-5.1)
[2021-03-14] MEDS: METOPROLOL SUCC 50MG EXT REL TAB PO SCH (08:22)
[2021-03-14] MEDS: ATORVASTATIN 20 MG TAB PO SCH (08:22)
[2021-03-14] MEDS: SPIRONOLACTONE 12.5 MG TAB PO SCH (08:22)
[2021-03-14] MEDS: APIXABAN 5 MG TABLET PO SCH (08:22)
[2021-03-14] MEDS: FAMOTIDINE 10 MG TABLET PO SCH (08:22)
[2021-03-14] MEDS: lisinopril 10 MG TAB PO SCH (08:22)
[2021-03-14] MEDS: amLODIPine BESYLATE 5 MG TAB PO SCH (08:22)
[2021-03-14] MEDS: cefUROXime axetil 500 MG TAB PO SCH (08:23)
[2021-03-14] MEDS ORDERED: POTASSIUM CHLORIDE CRTAB 20 MEQ TABCR PO SCH (09:00)
--- NOTE | 2021-03-14 11:08 | Cardiology Progress Note ---
Date of Service March 14, 2021 Assessment & Plan (1) Paroxysmal atrial fibrillation with RVR: Patient converted to sinus rhythm 03/13/2021 at approximately 4:20 AM. Recommend rhythm control strategy due to acute heart failure with mild systolic dysfunction. Amiodarone 200 mg twice daily for the next 1 week then reduce dose to 200 mg daily. Concomitantly reduce Toprol-XL to 50 mg daily. Continue Eliquis 5 mg twice daily. Result of cardiac catheterization discussed with patient. Continue statin therapy. Outpatient cardiology follow-up in 1 week. (2) Acute HFrEF (heart failure with reduced ejection fraction): Discontinue IV diuretic therapy. Transition to oral Lasix 40 mg daily. Follow daily weight, fluid balance, GFR, and electrolytes. Continue beta- hasmukh and REID inhibitor as previously ordered. (3) Left bundle branch block: Chronic finding. Mild left ventricular systolic dysfunction per echocardiogram. Admission and Anticipated Discharge Date Admission Date: March 09, 2021 Subjective Patient seen and examined at the bedside. Converted to sinus rhythm yesterday at approximately 4:20 AM. Diagnostic catheterization performed without evidence of significant obstructive coronary disease. Intravenous amiodarone discontinued. Patient remains in sinus rhythm. Denies chest pain or unusual shortness of breath. No orthopnea, PND, or lower extremity edema. Review of Systems Review of Systems: All systems reviewed & are unremarkable except as noted in Subjective Physical Exam Constitutional: well developed and well nourished; no acute distress and not ill appearing Respiratory: normal respiratory effort; no respiratory distress and no labored breathing Auscultation: no diminished lung sounds, no crackles, no rales, no rhonchi and no wheezes Cardiovascular: Rate/Rhythm: regular rate and regular rhythm Heart Sounds: normal S1 and normal S2; no murmur Vessels: no JVD Extremities: no edema Gastrointestinal (Abdomen): Inspection/Auscultation: abdomen normal to inspection, + abdomen distended and normal bowel sounds Percussion/Palpation: abdomen soft; abdomen nontender, no guarding and abdomen not rigid Neurologic: CN's II-XI intact bilaterally and moves all extremities; no focal motor deficits Motor/Sensory: no tremor Psychiatric: A+Ox3, euthymic affect Results & Data ([facility]) Vital Signs (Past 12 Hours) Vital Signs Temp Pulse Pulse Resp BP BP Pulse Ox 03/14/21 09:37 75 03/14/21 07:27 36.6 C 73 17 118/72 94 03/14/21 03:31 36.8 C 76 18 116/70 95 03/13/21 23:48 36.8 C 78 19 133/77 93
[2021-03-14] MEDS ORDERED: AMIODARONE 200 MG TAB PO ONE (11:15)
--- NOTE | 2021-03-14 12:42 | Hospitalist Progress Note ---
Date of Service March 14, 2021 Assessment & Plan (1) Severe sepsis: Acute respiratory failure with hypoxia Severe sepsis Atypical Pneumonia Pulmonary edema -CTA:No evidence for pulmonary embolus with limitations as described above. Above findings likely represent moderate asymmetric pulmonary edema. A superimposed pneumonia could also have a similar appearance. Small bilateral pleural fusions. There are 2 subcentimeter nodules within the right lung with the largest in the right upper lobe measuring 8 mm. [address] follow-up recommended to ensure resolution once the patient's pulmonary abnormalities have resolved. -Lactate levels normalized with IV fluids Elevated procalcitonin Blood cultures: No growth to date Continue cefepime, doxycycline Day #3>>Cefuroxime, Doxy Day #3 Continue nebs Saturating well on room air Procalcitonin trended down Improved Afib RVR--spontaneously converted to sinus H/O SVT/VTs Chronic LBBB Mild Troponin elevation--Likely Type II [place] S/P Cardiac Cath:Nonobstructive moderate ostial LAD stenosis TSH near normal Free T4: Normal Continue Metoprolol Continue IV heparin>> Transition to Eliquis IV Cardizem/IV Amiodarone discontinued Appreciate Cardiology Input Continue amiodarone 200 mg twice daily for 1 week and then 200 mg daily Pulmonary nodules Incidental finding on CT Needs repeat chest CT in 3 months Acute on chronic systolic heart failure-POA Chronic LBBB -ECHO: Mild concentric LVH. Septal motion consistent with conduction abnormality. Left ventricular wall motion is normal. Left ventricle systolic function is mildly reduced. EF 45 to 50%. Mild MR. Mild to moderate TR. Mild pulmonary hypertension is present. 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 DVT Px: Eliquis Code Status Full code Admission and Anticipated Discharge Date Admission Date: March 09, 2021 Subjective Patient is seen and examined at bedside States feeling well Eager to get discharged Discussed with cardiology today Remains in sinus rhythm Denies chest pain, dyspnea, dizziness, nausea, abdominal pain Review of Systems Review of Systems: All systems reviewed & are unremarkable except as noted in HPI & below As per HPI, all 10 systems reviewed, all other ROS negative Physical Exam Physical Exam: Physical Exam: Vitals signs as noted above General Appearance:Moderately built and nourished, no apparent distress Head: normocephalic, Atraumatic Eyes: normal inspection, EOMI Neck: supple, Trachea midline Respiratory/Chest: Decreased breath sounds, CTA Cardiovascular: S1-S2, No murmur Abdomen/GI:Soft, Non tender, Bowel sounds present Extremities/Musculoskeletal:normal inspection, Trace edema Neurologic/Psych:AAOX3, grossly no focal neurological deficits Skin: normal color, warm Results & Data Results & Data ([facility]) Vital Signs (Past 12 Hours) Vital Signs Temp Pulse Pulse Resp BP BP Pulse Ox 03/14/21 11:07 36.5 C 76 18 131/76 95 03/14/21 09:37 75 03/14/21 07:27 36.6 C 73 17 118/72 94 03/14/21 03:31 36.8 C 76 18 116/70 95 Laboratory Results Short CBC 03/14/21 Range/Units 06:23 WBC 4.79 L (4.8-10.8) K/uL Hgb 12.1 (12.0-16.0) g/dL Hct 36.3 L (37-47) % Plt Count 288 (130-400) K/uL BMP 03/14/21 06:23 Sodium 139 Potassium 3.5 Chloride 109 H Carbon Dioxide 24 BUN 14 Creatinine 0.60 Glucose 102 H Calcium 8.5
--- NOTE | 2021-03-14 12:54 | Discharge Summary ---
Date of Service March 14, 2021 Admission HPI Per Admitting Provider History obtained from patient and records. 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 Last confinement 2016 under Orthopedics service for elective left total knee arthroplasty. Few days history of junky cough symptoms with worsening shortness of breath. Denies chest pain or fluid retention. Denies aspiration. Not sure about sick contacts given periodic visits to who is a resident at [facility] whom patient last visited last week. Patient denies abdominal pain/black/bloody stools. Patient called EMS. O2 sats noted to be 70s upon arrival of EMS. CPAP initiated by EMS. Patient given breathing treatments and Solu-Medrol on route to the hospital. Patient given Vanco and Zosyn at the ER for sepsis. 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 Admission Exam Per Admitting Provider Physical Exam Physical Exam: GENERAL: Slightly uncomfortable, minimal respiratory distress SKIN: Normal color, warm HEENT: [place] palpebral conjunctivae, no ptosis, dry buccal mucosa, BiPAP in place NECK : Supple, short neck, no tenderness CHEST : Decreased breath sounds, bilateral rhonchi, expiratory wheezes, no tenderness HEART : Tachycardic, no obvious murmurs ABDOMEN: Some distention, nontender EXTREMITIES : No LE swelling/tenderness, no other conspicuous deformities noted NEUROLOGIC : Coherent, no facial asymmetry, rest tremors, no other gross focality Principal Diagnosis Acute respiratory failure with hypoxia Sepsis Atypical pneumonia Atrial fibrillation RVR Pulmonary nodule Acute on chronic systolic heart failure Discharge Data Allergies Allergy/AdvReac Type Severity Reaction Status Date / Time No Known Allergies Allergy Mild Verified 03/09/21 01:09 Consultations 03/09/21 02:30 ED Decision to Admit Stat 03/10/21 08:00 Consult Cardiology Routine Procedures Performed Operation Date: 03/13/21 14:30 Actual Procedures p Cath, Left with Cors and Vent - Oswaldo Youngblood MD s Cineradiography w/Routine Exam - Oswaldo Youngblood MD s Fraction Flow [place] SGL Ves - Mike Dave MD Ordered Studies 03/09/21 01:23 CT angio chest PE protocol Urgent 03/13/21 11:53 CL Cath Imgs for PACS use only Routine -CTA:No evidence for pulmonary embolus with limitations as described above. Above findings likely represent moderate asymmetric pulmonary edema. A superimposed pneumonia could also have a similar appearance. ECHO: Mild concentric LVH. Septal motion consistent with conduction abnormality. Left ventricular wall motion is normal. Left ventricle systolic function is mildly reduced. EF 45 to 50%. Mild MR. Mild to moderate TR. Mild pulmonary hypertension is present. Hospital Course (1) Severe sepsis: Acute respiratory failure with hypoxia Severe sepsis Atypical Pneumonia Pulmonary edema -CTA:No evidence for pulmonary embolus with limitations as described above. Above findings likely represent moderate asymmetric pulmonary edema. A superimposed pneumonia could also have a similar appearance. Small bilateral pleural fusions. There are 2 subcentimeter nodules within the right lung with the largest in the right upper lobe measuring 8 mm[address] follow-up recommended to ensure resolution once the patient's pulmonary abnormalities have resolved. -Lactate levels normalized with IV fluids Elevated procalcitonin Blood cultures: No growth to date Continue cefepime, doxycycline Day #3>>Cefuroxime, Doxy Day #3 Continue nebs Saturating well on room air Procalcitonin trended down Improved Afib RVR--spontaneously converted to sinus H/O SVT/VTs Chronic LBBB Mild Troponin elevation--Likely Type II DE S/P Cardiac Cath:Nonobstructive moderate ostial LAD stenosis TSH near normal Free T4: Normal Continue Metoprolol Continue IV heparin>> Transition to Eliquis IV Cardizem/IV Amiodarone discontinued Appreciate Cardiology Input Continue amiodarone 200 mg twice daily for 1 week and then 200 mg daily Pulmonary nodules Incidental finding on CT Needs repeat chest CT in 3 months Acute on chronic systolic heart failure-POA Chronic LBBB -ECHO: Mild concentric LVH. Septal motion consistent with conduction abnormality. Left ventricular wall motion is normal. Left ventricle systolic function is mildly reduced. EF 45 to 50%. Mild MR. Mild to moderate TR. Mild pulmonary hypertension is present. 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 DVT Px: Eliquis Code Status Full code Total Time Total Time Spent Total Time Spent (In Minutes): 44 minutes Total Time Includes: Examination of the Patient, Discharge Planning, Medication Reconciliation, Communication With Other Providers and Other Discharge Plan Discharge Items Patient Disposition: Home - Self-Care Reason For Visit: RESPIRATORY FAILURE Discharge Diagnosis: Acute respiratory failure with hypoxia Sepsis Atypical pneumonia Atrial fibrillation RVR Pulmonary nodule Acute on chronic systolic heart failure Activity: Per Instructions section Exercise/Sports: Wait until after follow-up appointment Non-emergency contact: Primary Care Provider and Lab Support Tech Call non-emergency contact if: you have any medication questions, your symptoms worsen, your pain is not controlled, your pain is worsening, your pain is concerning for you and you have a fever Follow-up/Referrals: Katia Landers DO [Primary Care Provider] - (Date & Time 03/17/2021 11:10 AM Provider Katia Landers DO Department Family [facility] ) Diet: Heart Healthy Addtl Attending Provider Instructions: Follow-up with your primary care physician Dr. Katia Landers on 03/17/2021 at 11:10 AM Follow-up with your inside parts sales Dr. Boyd in 1 week --Complete the antibiotic course for 2 more days as prescribed. Amiodarone course Start taking amiodarone 200 mg twice daily for 1 week and then take 200 mg once daily as recommended by your inside parts sales. ---You were incidentally noted to have pulmonary nodules on CT scan. Get repeat CT chest in 3 months and follow-up with your physician. Seek immediate medical attention if your symptoms reoccur or worsen Please take all medications as instructed on discharge list below. Please call if you have any questions or problems. You can reach a [facility] hospitalist on duty at [facility] 24 hours a day by calling [phone] Call your Primary Care doctor if any of the following symptoms or problems start or get worse: * Shortness of breath or difficulty breathing * Wake up at night short of breath * Chest pain * Cough * Swelling of your hands, feet, or legs * More fatigued or tired with your normal activity * Palpitations - sudden fast heart beats WEIGHT * Weigh yourself every morning after using the bathroom. * Use the same scale. * Wear the same amount of clothing. * Write your weight down on a chart. * Call your Primary Care doctor if you gain more than 2-3 pounds in 1-2 days. MEDICATIONS * Use this discharge instruction sheet for medication instructions. * Take your medications at the time your doctor ordered. * Do not skip a dose of your medicines. * If you miss a dose of medicine, take it as soon as possible, but DO NOT DOUBLE A DOSE. * Read your medicine information when you get home. * Know all of the side effects of your medicine. If in doubt, ask your pharmacist * Call your Primary Care doctor's office if you have any side effects. * Be sure all of your doctors know what medicine and herbs you take (including cold, flu, and herbal medicine). Take the following with you to your follow-up doctor appointments: * Weight Chart * Medication List * List of questions Do not drink excessive alcohol, beer or wine. Pending Studies at Discharge: No Stand-Alone Forms: My [facility] [employer], Smoking Cessation Medications and DC Order Prescriptions: New Eliquis 5 mg tablet 5 mg PO BID Qty: 60 RF: 1 doxycycline hyclate 100 mg Capsule 100 mg PO Q12H Qty: 4 RF: 0 amiodarone 200 mg Tablet 200 mg PO UD Qty: 60 RF: 0 metoprolol succinate 50 mg Tablet Extended Release 24 Hr 50 mg PO DAILY Qty: 30 RF: 1 cefuroxime axetil 500 mg Tablet 500 mg PO BID Qty: 4 RF: 0 furosemide 40 mg Tablet 40 mg PO QAM Qty: 30 RF: 1 famotidine [Acid Vocational Rehabilitation Consultant (famotidine)] 10 mg Tablet 10 mg PO BID Qty: 10 RF: 0 spironolactone 25 mg Tablet 12.5 mg PO DAILY Qty: 30 RF: 0 Continued atorvastatin 20 mg tablet 20 mg PO DAILY RF: 0 alendronate 70 mg tablet 70 mg PO UD RF: 0 amlodipine 5 mg tablet 5 mg PO DAILY RF: 0 lisinopril 10 mg tablet 10 mg PO DAILY RF: 0 cholecalciferol (vitamin D3) [Vitamin D3] 25 mcg (1,000 unit) Tablet 25 mcg PO DAILY RF: 0 omega 4-los-jix-fish oil [Fish Oil] 1,000 mg (120 mg-180 mg) Capsule 1 cap PO DAILY RF: 0 Discontinued metoprolol succinate 100 mg tablet extended release 24 hr 100 mg PO DAILY RF: 0 Discharge Orders: Discharge Order (Routine); Ordered 03/14/21 Ordered By: Devon Locke Admission Data Admit Date/Time: 03/09/21 02:45 Attending Provider: Devon Locke Admit Provider: Bharath Harper Primary Care Provider: Katia Landers Other Providers: Bharath Harper ; Sammy Christopher
--- NOTE | 2021-03-14 15:20 | Electrocardiogram Report ---
Test Reason : Blood Pressure : / mmHG Vent. Rate : 077 BPM Atrial Rate : 077 BPM P-R Int : 184 ms QRS Dur : 168 ms QT Int : 472 ms P-R-T Axes : 035 -50 063 degrees QTc Int : 534 ms Normal sinus rhythm Left axis deviation Left bundle branch block Abnormal ECG When compared with ECG of 13-MAR-2021 04:24, No significant change was found Confirmed by Brian Medley ([id number]) on 03/14/2021 3:20:26 PM Referred By: REFERRED SELF Confirmed By:Brian Medley
[2021-03-14] MEDS ORDERED: AMIODARONE 200 MG TAB PO SCH (17:00)
[2021-03-15] MEDS ORDERED: METOPROLOL SUCC 50MG EXT REL TAB PO SCH (09:00)
[2021-03-15] MEDS ORDERED: FUROSEMIDE 40 MG TAB PO SCH (09:00)
== END 2021-03-14 15:08 | disposition home or self-care (01) | DRG 871 ==
LOC: ED 00:08 → 2S 02:45